=== PATIENT | female | born 1945 | race Caucasian/White ===

== ENCOUNTER 2016-04-21 14:19 | Emergency (ER) | payer OTHER, MEDICARE ==
[~2016-04-21] VITALS: Ht 177.8 cm; Wt 54.4 kg
[~2016-04-21 14:19] MED LIST: CALC-793 PO; DCS100C PO; ENOX30DI9 SQ; ERGO400C PO; ESCT10T PO; LVT.1T PO; MULT-927 PO; NFAMINITAB PO; OMEG1CAP51 PO; PREVASTATIN; VIT500LI PO; WRF2.5T PO; WRF5T PO
[2016-04-21 14:38] LABS: BASOPHILS % (AUTO) 1 % (0-10); EOSINOPHILS # (AUTO) 0.1 10^3/uL (0.0-0.3); EOSINOPHILS % (AUTO) 1 % (0-10); LYMPHOCYTES # (AUTO) 1.4 X 10^3 (1.0-4.0); LYMPHOCYTES % (AUTO) 28 % (12-44); MEAN CORPUSCULAR HEMOGLOBIN 33 PG (25-34); MEAN CORPUSCULAR HGB CONC 33 G/DL (32-36); MEAN CORPUSCULAR VOLUME 100 FL (80-99); MONOCYTES # (AUTO) 0.6 X 10^3 (0.0-1.0); MONOCYTES % (AUTO) 12 % (0-12); NEUTROPHILS # (AUTO) 2.9 X 10^3 (1.8-7.8); NEUTROPHILS % (AUTO) 58 % (42-75); PLATELET COUNT 131 10^3/uL (130-400); RED BLOOD COUNT 4.06 10^6/uL (4.35-5.85); RED CELL DISTRIBUTION WIDTH 13.2 % (10.0-14.5); WHITE BLOOD COUNT 5.1 10^3/uL (4.3-11.0)
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
[2016-04-21 14:50] LABS: INR 3.6 (0.8-1.4)
[2016-04-21 14:58] LABS: ALANINE AMINOTRANSFERASE 19 U/L (0-55); ALBUMIN 4.1 G/DL (3.2-4.5); ANION GAP 9 MMOL/L (5-14); ASPARTATE AMINO TRANSFERASE 31 U/L (5-34); BILIRUBIN,TOTAL 0.8 MG/DL (0.1-1.0); BLOOD UREA NITROGEN 13 MG/DL (7-18); BUN/CREATININE RATIO 15; CALCIUM 9.2 MG/DL (8.5-10.1); CARBON DIOXIDE 24 MMOL/L (21-32); CHLORIDE 107 MMOL/L (98-107); CREATINE KINASE 133 U/L (29-168); CREATININE SERUM 0.87 MG/DL (0.60-1.30); GFR ESTIMATED > 60; GLUCOSE 89 MG/DL (70-105); POTASSIUM 4.2 MMOL/L (3.6-5.0); SODIUM 140 MMOL/L (135-145)
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
[2016-04-21 15:06] LABS: TROPONIN I < 0.30 NG/ML (<0.30)
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
[2016-04-21] MEDS ORDERED: IOHEXOL 350 MG/ML 100 ML (OMNIPAQUE 350) VIAL IV ONE (15:30)
[2016-04-21] MEDS ORDERED: NS 100 ML (IVPB) BAG IV ONE (15:30)
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
[2016-04-21] MEDS ORDERED: TRAM-42 PO (16:28)
[2016-04-21 16:48] VITALS: BP 110/65
== END 2016-04-21 16:44 | disposition home or self-care (01) ==
LOC: EDUNIT# 14:19 → ER 14:21
DX: S20.211A Contusion of right front wall of thorax, initial encounter (principal); S20.212A Contusion of left front wall of thorax, initial encounter; S40.012A Contusion of left shoulder, initial encounter; S99.911A Unspecified injury of right ankle, initial encounter; S22.080D Wedge compression fracture of T11-T12 vertebra, subsequent encounter for fracture with routine healing; M50.322 Other cervical disc degeneration at C5-C6 level; I51.7 Cardiomegaly; I25.10 Atherosclerotic heart disease of native coronary artery without angina pectoris; I10 Essential (primary) hypertension; Z79.01 Long term (current) use of anticoagulants; Z79.899 Other long term (current) drug therapy; Z95.1 Presence of aortocoronary bypass graft; Z95.2 Presence of prosthetic heart valve; Z90.11 Acquired absence of right breast and nipple; V43.52XA Car driver injured in collision with other type car in traffic accident, initial encounter; Y92.414 Local residential or business street as the place of occurrence of the external cause; Y99.8 Other external cause status
CPT/HCPCS: 36415; 70450; 71010; 71260; 72125; 72170; 73000; 73610; 74177; 80053; 82550; 82553; 84443; 84484; 85025; 85610; 85730; 93005; 93041

== ENCOUNTER → 2016-11-25 | Outpatient (CLI) | payer MEDICARE ==
[~2016-11-25] MED LIST changes: +TRAM-42 PO
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
== END ==
LOC: RAD 13:51
PROVIDERS: ATTEND Family Medicine
DX: R19.09 Other intra-abdominal and pelvic swelling, mass and lump (principal); R10.13 Epigastric pain; R14.0 Abdominal distension (gaseous)
CPT/HCPCS: 74176

== ENCOUNTER 2017-11-04 14:15 | Emergency (ER) | payer MEDICARE ==
[~2017-11-04] VITALS: Ht 170.2 cm; Wt 54.4 kg
--- NOTE | 2017-11-04 14:51 | ED Lower Extremity ---
General Chief Complaint: Trauma-Non Activation Stated Complaint: FALL Nursing Triage Note: pt presents to ed with complaints of r hip/thigh pain after falling off chair when cleaning a ceiling fan. pt denies loc or hitting head. Nursing Sepsis Screen: No Definite Risk Source: patient, EMS Exam Limitations: no limitations History of Present Illness Date Seen by Provider: Nov 04, 2017 Time Seen by Provider: 14:49 Initial Comments This 72-year-old female presents after she fell off a chair while cleaning a ceiling fan. She sustained injury to her right hip. There was no associated head injury, loss of consciousness trauma to the chest or abdomen. The patient is unable to weight-bear due to pain. Patient denies loss of sensation or movement of the right lower extremity although she complains of pain in the right hip when she attempts to move. Location Injury Occurred: home residence Allergies and Home Medications Allergies Coded Allergies: Sulfa (Sulfonamide Antibiotics) (Verified Allergy, Unknown, 01/08/08) meperidine (Verified Allergy, Unknown, 01/08/08) Home Medications Cholecalciferol 400 Unit Capsule, 400 UNIT PO DAILY, (Reported) Docusate Sodium 100 Mg Capsule, 100 MG PO DAILY, (Reported) Enoxaparin 30 Mg/0.3 Ml Disp.syrin, 1 EACH SQ Q12HR, (Reported) Escitalopram Oxalate 10 Mg Tablet, 1 EACH PO DAILY, (Reported) Levothyroxine Sodium 100 Mcg Tablet, 1 EACH PO DAILY, (Reported) Tramadol HCl 50 Mg Tablet, 50 MG PO Q4H Prescribed by: MARIELA NAVARRETE on 04/21/16 1628 Warfarin Sod 5 Mg Tab, 5 MG PO DAILY, (Reported) Warfarin Sod 2.5 Mg Tab, 2.5 MG PO ONCE, (Reported) [Prevastatin] , 40 MG DAILY, (Reported) Patient Home Medication List Home Medication List Reviewed: Yes Review of Systems Constitutional: No chills, No fever, No malaise EENTM: No ear pain, No blurred vision Respiratory: No cough Cardiovascular: No chest pain Gastrointestinal: No abdominal pain, No nausea, No vomiting Genitourinary: No dysuria : No Musculoskeletal: No back pain; joint pain (right hip pain) Skin: No lesions, No rash Psychiatric/Neurological: No Symptoms Reported Past Ujaflll-Zzhqqp-Csewqt Hx Past Med/Social Hx: Reviewed Nursing Past Med/Soc Hx Patient Social History Alcohol Use: Occasionally Uses Number of Drinks Today: Alcohol Beverage of Choice: Wine Recreational Drug Use: No Smoking Status: Current Everyday Smoker Type Used: Cigarettes Former Smoker, Quit: Apr 15, 1995 Recent Foreign Travel: No Contact w/Someone Who Travel: No Recent Infectious Disease Expo: No Recent Hopitalizations: No Physical Abuse: No Sexual Abuse: No Mistreated: No Fear: No Immunizations Up To Date Date of Influenza Vaccine: Nov 14, 2010 Past Medical History Surgeries: Yes (RIGHT MASTECTOMY; CABG; MITRAL VALVE REPLACEMENT; COLONOSCOPIES ) Breast, Cardiac, CABG, Hysterectomy, Valve Replacement Respiratory: No Cardiac: Yes (MITRAL VALVE REPLACEMENT) Atrial Fibrillation, Hypertension, Valvular Heart Disease Neurological: No Reproductive Disorders: No 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 oz. 54.582954ja; BMI Method:Stated General Appearance: WD/WN, mild distress HEENT: normal ENT inspection Neck: normal inspection Cardiovascular: regular rate, rhythm Respiratory: lungs clear Gastrointestinal: normal bowel sounds, soft Hips: right hip limited range of motion, right hip pain Neurologic/Tendon: normal sensation, normal motor functions Neurologic/Psychiatric: no motor/sensory deficits, alert, oriented x 3 Skin: normal color, warm/dry Progress/Results/Core Measures Results/Orders Lab Results Laboratory Tests Test 11/04/17 14:28 11/04/17 16:01 Range/Units White Blood Count 7.0 4.3-11.0 10^3/uL Red Blood Count 3.88 L 4.35-5.85 10^6/uL Hemoglobin 13.1 11.5-16.0 G/DL Hematocrit 40 35-52 % Mean Corpuscular Volume 102 H 80-99 FL Mean Corpuscular Hemoglobin 34 25-34 PG Mean Corpuscular Hemoglobin Concent 33 32-36 G/DL Red Cell Distribution Width 13.2 10.0-14.5 % Platelet Count 117 L 130-400 10^3/uL Mean Platelet Volume 10.4 7.4-10.4 FL Neutrophils (%) (Auto) 73 42-75 % Lymphocytes (%) (Auto) 18 12-44 % Monocytes (%) (Auto) 8 0-12 % Eosinophils (%) (Auto) 1 0-10 % Basophils (%) (Auto) 0 0-10 % Neutrophils # (Auto) 5.1 1.8-7.8 X 10^3 Lymphocytes # (Auto) 1.2 1.0-4.0 X 10^3 Monocytes # (Auto) 0.5 0.0-1.0 X 10^3 Eosinophils # (Auto) 0.1 0.0-0.3 10^3/uL Basophils # (Auto) 0.0 0.0-0.1 10^3/uL Sodium Level 140 135-145 MMOL/L Potassium Level 4.1 3.6-5.0 MMOL/L Chloride Level 106 98-107 MMOL/L Carbon Dioxide Level 25 21-32 MMOL/L Anion Gap 9 5-14 MMOL/L Blood Urea Nitrogen 22 H 7-18 MG/DL Creatinine 1.13 0.60-1.30 MG/DL Estimat Glomerular Filtration Rate 47 BUN/Creatinine Ratio 19 Glucose Level 106 H 70-105 MG/DL Calcium Level 9.5 8.5-10.1 MG/DL Corrected Calcium 9.3 8.5-10.1 MG/DL Total Bilirubin 0.6 0.1-1.0 MG/DL Aspartate Amino Transf (AST/SGOT) 34 5-34 U/L Alanine Aminotransferase (ALT/SGPT) 19 0-55 U/L Alkaline Phosphatase 87 40-136 U/L Total Protein 7.0 6.4-8.2 GM/DL Albumin 4.2 3.2-4.5 GM/DL Urine Color YELLOW Urine Clarity CLEAR Urine pH 5 5-9 Urine Specific [place] 1.010 L 1.016-1.022 Urine Protein NEGATIVE NEGATIVE Urine Glucose (UA) NEGATIVE NEGATIVE Urine Ketones NEGATIVE NEGATIVE Urine Nitrite NEGATIVE NEGATIVE Urine Bilirubin NEGATIVE NEGATIVE Urine Urobilinogen NORMAL NORMAL MG/DL Urine Leukocyte Esterase NEGATIVE NEGATIVE Urine RBC (Auto) NEGATIVE NEGATIVE Urine RBC NONE /HPF Urine WBC NONE /HPF Urine Squamous Epithelial Cells RARE /HPF Urine Crystals NONE /LPF Urine Bacteria NONE /HPF Urine Casts NONE /LPF Urine Mucus NEGATIVE /LPF Urine Culture Indicated NO My Orders Orders - RENETTA JEWELL MD Hip, Right, 2 Views (11/04/17 14:46) Chest 1 View, Ap/Pa Only (11/04/17 14:46) Cbc With Automated Diff (11/04/17 14:46) Comprehensive Metabolic Panel (11/04/17 14:46) Ua Culture If Indicated (11/04/17 14:46) Type And Screen (11/04/17 14:46) Fentanyl Injection (Sublimaze Injection (11/04/17 15:15) Ns Iv 1000 Ml (Sodium Chloride 0.9%) (11/04/17 15:15) Ondansetron Injection (Zofran Injectio (11/04/17 15:03) Medications Given in ED Current Medications Medications Dose Ordered Sig/Emily Route Start Time Stop Time Status Last Admin Dose Admin Fentanyl Citrate 50 mcg ONCE ONCE IVP 11/04/17 15:15 11/04/17 15:16 DC 11/04/17 15:10 50 MCG Ondansetron HCl 4 mg STK-MED ONCE .ROUTE 11/04/17 15:03 11/04/17 15:07 DC 11/04/17 15:10 4 MG Vital Signs/I&O 11/04/17 14:37 Temp 97.4 Pulse 74 Resp 18 B/P (MAP) 116/74 (88) Pulse Ox 97 Blood Pressure Mean: 88 Progress Progress Note : Time: 16:27 Progress Note The patient's right hip x-ray demonstrated fracture of the right hip (sub- capital fracture). The patient's pain was effectively treated with 50 g doses of fentanyl IV. We have no orthopedic coverage this weekend at via [facility], [place]. The patient requested that she be transferred to [facility] where she can be cared for by her crop puller, Dr. Grimaldo. Calls were made to [facility]. The patient has been accepted by Dr. Looney, orthopedic surgeon, and arrangements for ground transport have been initiated. Departure Impression Primary Impression: Hip fracture, right Qualified Codes: S72.001A - Fracture of unspecified part of neck of right femur, initial encounter for closed fracture Disposition: 02 XFER SHT-TRM HOSP Condition: Improved Transfer Time Spoke to Accepting Phy: 16:[address] Looney excepted the patient through the bed nurse, Liane, at [facility]. Transfer Time: 16:34 Transfer Facility: [facility] Method of Transfer: EMS Departure-Patient Inst. Referrals: PRIYA ALVES DO (PCP/Family) Primary Care Physician RENETTA JEWELL MD Nov 04, 2017 14:51
[2017-11-04 15:00] LABS: BASOPHILS % (AUTO) 0 % (0-10); EOSINOPHILS # (AUTO) 0.1 10^3/uL (0.0-0.3); EOSINOPHILS % (AUTO) 1 % (0-10); HEMATOCRIT 40 % (35-52); HEMOGLOBIN 13.1 G/DL (11.5-16.0); LYMPHOCYTES # (AUTO) 1.2 X 10^3 (1.0-4.0); LYMPHOCYTES % (AUTO) 18 % (12-44); MEAN CORPUSCULAR HEMOGLOBIN 34 PG (25-34); MEAN CORPUSCULAR HGB CONC 33 G/DL (32-36); MEAN CORPUSCULAR VOLUME 102 FL (80-99); MEAN PLATELET VOLUME 10.4 FL (7.4-10.4); MONOCYTES # (AUTO) 0.5 X 10^3 (0.0-1.0); MONOCYTES % (AUTO) 8 % (0-12); NEUTROPHILS # (AUTO) 5.1 X 10^3 (1.8-7.8); NEUTROPHILS % (AUTO) 73 % (42-75); PLATELET COUNT 117 10^3/uL (130-400); RED BLOOD COUNT 3.88 10^6/uL (4.35-5.85); RED CELL DISTRIBUTION WIDTH 13.2 % (10.0-14.5)
[2017-11-04] MEDS ORDERED: ONDANSETRON 4 MG/2 ML (SDV) Z0FRAN ONE (15:03)
[2017-11-04 15:11] LABS: ALBUMIN 4.2 GM/DL (3.2-4.5); BILIRUBIN,TOTAL 0.6 MG/DL (0.1-1.0); CALCIUM 9.5 MG/DL (8.5-10.1); CREATININE SERUM 1.13 MG/DL (0.60-1.30); POTASSIUM 4.1 MMOL/L (3.6-5.0)
[2017-11-04] MEDS ORDERED: fentaNYL INJECTION 100 MCG/2 ML AMP IVP ONE (15:15)
[2017-11-04] MEDS ORDERED: NS IV 1000 ML 1,000 ML IV SCH (15:15)
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
[2017-11-04 16:13] LABS: BILIRUBIN,URINE NEGATIVE (NEGATIVE); CLARITY,URINE CLEAR; COLOR,URINE YELLOW; GLUCOSE, URINE (UA) NEGATIVE (NEGATIVE); KETONES,URINE NEGATIVE (NEGATIVE); LEUKOCYTE ESTERASE ,URINE NEGATIVE (NEGATIVE); NITRITE,URINE NEGATIVE (NEGATIVE); PH,URINE 5 (5-9); PROTEIN,URINE NEGATIVE (NEGATIVE); UROBILINOGEN,URINE NORMAL (NORMAL)
[2017-11-04 16:21] LABS: SQUAMOUS EPITHELIAL CELL,UR RARE /HPF
[2017-11-04] MEDS ORDERED: fentaNYL INJECTION 100 MCG/2 ML AMP ONE (18:10)
[2017-11-04 18:24] VITALS: BP 122/68
== END 2017-11-04 18:24 | disposition short-term general hospital (02) ==
LOC: EDUNIT# 14:15 → ER 14:16
DX: S72.001A Fracture of unspecified part of neck of right femur, initial encounter for closed fracture (principal); R07.81 Pleurodynia; I48.91 Unspecified atrial fibrillation; I10 Essential (primary) hypertension; F41.9 Anxiety disorder, unspecified; E03.9 Hypothyroidism, unspecified; Z87.19 Personal history of other diseases of the digestive system; Z87.891 Personal history of nicotine dependence; Z85.3 Personal history of malignant neoplasm of breast; Z90.11 Acquired absence of right breast and nipple; Z95.1 Presence of aortocoronary bypass graft; Z95.2 Presence of prosthetic heart valve; Z90.710 Acquired absence of both cervix and uterus; Z88.2 Allergy status to sulfonamides; Z88.8 Allergy status to other drugs, medicaments and biological substances; Z79.01 Long term (current) use of anticoagulants; W07.XXXA Fall from chair, initial encounter
CPT/HCPCS: 36415; 51702; 71045; 73502; 80053; 81000; 85025; 86850; 86900; 86901; 96361; 96374; 96375; 96376

== ENCOUNTER 2017-11-10 15:18 | Inpatient (IN) | payer MEDICARE ==
[~2017-11-10] VITALS: Ht 170.2 cm; Wt 58.6 kg
[2017-11-10 19:10] VITALS: BP 147/61
[2017-11-10] MEDS: DOCUSATE SODIUM 100 MG (COLACE) CAP PO SCH (21:27)
[2017-11-10] MEDS: ATORVASTATIN 20 MG (LIPITOR) TABLET PO SCH (21:27)
[2017-11-10] MEDS: ACETAMINOPHEN 325 MG TABLET PO PRN (21:27)
[2017-11-10] MEDS: FAMOTIDINE 20 MG (PEPCID) TABLET PO SCH (21:27)
--- NOTE | 2017-11-10 22:47 | HISTORY AND PHYSICAL ---
DATE OF SERVICE: 11/10/2017 CHIEF COMPLAINT: Difficulty with walking. HISTORY OF PRESENT ILLNESS: The patient is a 72-year-old female, who fell at home and sustained a right hip fracture.Radiographs revealed a displaced femoral neck fracture. 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 Her Coumadin was held and then resumed postoperatively. Currently, she requires assistance for ADLs and mobility skills. She was referred to inpatient rehabilitation unit at [facility] for ongoing care and therapies. Her PCP is Dr. Cotton and she lives in [place], [place]. She had been independent prior to this.Currently she requires Min assist for transfers and gait with a WW.Please see OT assessment for details of ADL function postop. PAST MEDICAL HISTORY: Atrial fibrillation, on chronic anticoagulation with Coumadin s/p MVR, anxiety, hypothyroidism, hyperlipidemia. PAST SURGICAL HISTORY: As per above. ALLERGIES: SULFA, MEPERIDINE. FAMILY HISTORY: Noncontributory. SOCIAL HISTORY: As per above. REVIEW OF SYSTEMS: A 10-point review of systems significant for constipation. She is requesting stool softener and hip pain. MEDICATIONS: Lortab generic 5/325 one tablet p.o. q.4 hours p.r.n. severe pain, tramadol 50 mg p.o. q.6 hours as needed for moderate pain, Tylenol 650 mg p.o. q.4 hours p.r.n. mild pain, Coumadin 2.5 mg p.o. daily, vitamin C 500 mg p.o. daily, vitamin D3 2000 units p.o. daily, Colace 100 mg p.o. b.i.d., Lexapro 20 mg p.o. daily, Pepcid 40 mg p.o. at bedtime, Synthroid 75 mcg p.o. daily, Mag ox 400 mg p.o. daily, metoprolol 100 mg p.o. daily, KCl 20 mEq p.o. b.i.d., pravastatin 80 mg p.o. daily. PHYSICAL EXAMINATION: GENERAL: Significant for a pleasant female appearing her stated age, lying in bed, no acute distress. VITAL SIGNS: Within normal limits. She is afebrile. HEENT: Vision, speech, hearing grossly intact. No oral lesion is noted. NECK: Supple without mass. HEART: Regular rhythm. CHEST: Clear. ABDOMEN: Soft, nontender, bowel sounds present. EXTREMITIES: Trace edema right ankle, no calf tenderness. MUSCULOSKELETAL: The patient has functional active range of motion in all 4 limbs other than the right hip. NEUROLOGIC: Cognitively grossly intact. Sensation grossly intact to touch. Strength good to normal throughout other than the right hip to some guarding and pain.MMT Lower limbs Knee flex 4/5 bilateral Left Hip flex 4/5 Knee ext 5/5 Dorsiflec lle 4+/5 Plantar flex bilat 5/5 Dorsiflex RT 4/5 with pain IMPRESSION: 1. Ambulatory dysfunction secondary to fall, fracture of right hip status post right hip surgery [facility]. Weightbearing as tolerated. 2. Chronic anticoagulation with Coumadin resumed postop. 3. Atrial fibrillation, controlled with medication. 4. Hypothyroidism, on replacement. PLAN: The patient will have a comprehensive program of inpatient rehabilitation with goal of maximizing level of functional independence prior to discharge home with her spouse, who presents to unit with her. The patient will have PT and OT 90 minutes per day each discipline, 5 days a week for 14 days with the above goals in mind. Please see post-admission physician evaluation, which is separate document for details of plan of care. Speech therapy to do cognitive assessment and treat as indicated. Rehabilitation nursing to assist with bowel, bladder, skin, wound care, medication administration, pain management. director of tax services to assist with discharge planning, and community reentry. Follow up with Dr. Cotton, PCP as per her schedule. Routine admission labs. Check INR in a.m. and adjust Coumadin as necessary. Coumadin and SCDs for DVT prophylaxis.F/u with OSH Ortho 4 weeks. ESTIMATED LENGTH OF STAY: 14 days. DIET: Regular. CODE STATUS: Full code Rehab prognosis appears good for goal of discharging home with spouse, modified independent to supervision for ADLs and mobility skills. Job ID: [id number] DocumentID: [id number] Dictated Date: 11/10/2017 20:15:05 Chief Innovation Officer Date: 11/10/2017 20:51:35 Dictated By: KISHAN LANTIGUA MD [facility]
[2017-11-11 05:10] VITALS: BP 103/68
[2017-11-11] MEDS: ASCORBIC ACID (VIT C) 500 MG TABLET PO SCH (06:06)
[2017-11-11] MEDS: KCL 20 MEQ TAB (K-DUR) PO SCH ×2 (06:06→16:51)
[2017-11-11] MEDS: LEVOTHYROXINE 75 MCG (LEVOTHROID) TABLET PO SCH (06:06)
[2017-11-11 06:25] LABS: BASOPHILS # (AUTO) 0.1 10^3/uL (0.0-0.1); BASOPHILS % (AUTO) 1 % (0-10); EOSINOPHILS # (AUTO) 0.2 10^3/uL (0.0-0.3); EOSINOPHILS % (AUTO) 2 % (0-10); HEMATOCRIT 26 % (35-52); HEMOGLOBIN 8.7 G/DL (11.5-16.0); LYMPHOCYTES # (AUTO) 1.1 X 10^3 (1.0-4.0); LYMPHOCYTES % (AUTO) 15 % (12-44); MEAN CORPUSCULAR HEMOGLOBIN 35 PG (25-34); MEAN CORPUSCULAR HGB CONC 34 G/DL (32-36); MEAN CORPUSCULAR VOLUME 102 FL (80-99); MEAN PLATELET VOLUME 9.9 FL (7.4-10.4); MONOCYTES # (AUTO) 0.8 X 10^3 (0.0-1.0); MONOCYTES % (AUTO) 11 % (0-12); NEUTROPHILS # (AUTO) 5.3 X 10^3 (1.8-7.8); NEUTROPHILS % (AUTO) 71 % (42-75); PLATELET COUNT 241 10^3/uL (130-400); RED CELL DISTRIBUTION WIDTH 13.1 % (10.0-14.5); WHITE BLOOD COUNT 7.4 10^3/uL (4.3-11.0)
[2017-11-11 06:41] LABS: PROTHROMBIN TIME PATIENT 39.1 SEC (12.2-14.7)
[2017-11-11] MEDS ORDERED: FLU QUADRIvalent (5+ YOA) 2018-2019 (AFLURIA) 0.5 ML IM ONE (07:00)
[2017-11-11] MEDS ORDERED: KCL 20 MEQ TAB (K-DUR) PO SCH (07:00)
[2017-11-11 07:03] LABS: ALANINE AMINOTRANSFERASE 31 U/L (0-55); ALKALINE PHOSPHATASE 76 U/L (40-136); BILIRUBIN,TOTAL 0.9 MG/DL (0.1-1.0); BUN/CREATININE RATIO 23; CALCIUM 8.5 MG/DL (8.5-10.1); CARBON DIOXIDE 23 MMOL/L (21-32); CHLORIDE 108 MMOL/L (98-107); GFR ESTIMATED > 60; GLUCOSE 95 MG/DL (70-105); POTASSIUM 3.8 MMOL/L (3.6-5.0); SODIUM 139 MMOL/L (135-145); TOTAL PROTEIN 5.6 GM/DL (6.4-8.2)
[2017-11-11] MEDS: MAGNESIUM OXIDE (MAG-OX)400 MG TAB PO SCH (08:33)
[2017-11-11] MEDS: meTOprolol SUCCINATE 100 MG (TOPROL XL) TAB PO SCH (08:33)
[2017-11-11] MEDS: ACETAMINOPHEN 325 MG TABLET PO PRN (08:34)
[2017-11-11] MEDS: VITAMIN D3 1,000 UNITS (CHOLECALCIFEROL) TABLET PO SCH (08:34)
[2017-11-11] MEDS: DOCUSATE SODIUM 100 MG (COLACE) CAP PO SCH ×2 (08:35→16:52)
--- NOTE | 2017-11-11 10:10 | ST Cognitive Linguistic Eval ---
Speech Evaluation-General Medical Diagnosis Hip fx Therapy Diagnosis Therapy Diagnosis: Cognition Precautions Precautions/Isolations: Standard Precautions Referral Referring Physician: Dr. Beaulieu Reason for Referral: Evaluation/Treatment Social History Current Living Status: Spouse Speech PLF-Current Status Prior Level of Function Independent Subjective Pt up in chair. Pleasant and cooperative.. Pain Numeric Pain Scale: 0-No Pain Language Eval: Auditory Comprehends Simple Yes/No Ques: Functional Follows 1-Step Commands: Functional Follows Complex Directions: Functional Follows General Conversations: Functional Language Eval: Verbal Language Completes Spontaneous Greeting: Functional Produces Auto, Serial Info: Functional Word Finding: Functional Requests Basic Needs: Functional States Basic Personal Info: Functional Expresses Complex Ideas: Functional Language Evaluation: Reading NT Cognitive Patient Orientation Pt oriented x 3. Objective Cognitive Domain Attention: WNL Memory: WNL Problem Solving: Functional Objective Results [facility] Cognitive/Communication Assessment was administered to determine cognitive-linguistic functioning. Results are: Memory - 3 word recall was 3/3 correct for immediate; 3/3 correct for delayed and 3/3 correct for remote delay. Sequencing/organization - 4/4 correct Problem Solving - Simple 4/4 correct; Math 4/4 correct; Abstract/complex 2/2 correct and Comparisons 5/5 correct. Speech/language WNL Oral Motor/Speech Production WNL Impression Functional cognitive-linguistic skills. No skilled ST indicated. Communication/Social Cognition Comprehension: 7 Expression: 7 Social Interaction: 7 Problem Solvin Memory: 7 Speech Patient Assess Expression of Ideas/Wants: Expression (4) Understanding Verbal Content: Understands (4) Brief Interview-Mental Status: Yes Repetition of Three Words: Three (3) Temporal Orientation: Year: Correct (3) Temporal Orientation: Month: Accurate within 5 days(2) Temporal Orientation: Day: Correct (1) Recall : Wear to say "Sock": Yes, no cue required (2) Recall : Color: Yes, no cue required (2) Recall : Bed: Yes, no cue required (2) Speech Short Term Goals Short Term Goals Short Term Goals no goals established as skilled ST not indicated. Speech Record Clerk Salesperson Goals Record Clerk Salesperson Goals no goals established as skilled ST not indicated. Speech-Plan Patient/Family Goals Patient/Family Goals: to return home. Treatment Plan Speech Therapy Treatment Plan: Discontinue ST no tx indicated. Frequency: Modified Program (IRF) (0) Estimated Hrs Per Day: Other (0) Rehab Potential: Good Barriers to Learning: None Pt/Family Agrees to Plan: Yes Safety Risks/Education Teaching Recipient: Patient Teaching Methods: Discussion Response to Teaching: Verbalize Understanding Time Speech Therapy Time In: 09:30 Speech Therapy Time Out: 09:55 Total Billed Time: 25 Billed Treatment Time 1, SPSNDCOMP OLGA Orantes Nov 11, 2017 10:10
[2017-11-11] MEDS ORDERED: ESCI10TA55 PO (10:48)
[2017-11-11] MEDS ORDERED: CHOL20003 PO (10:48)
[2017-11-11] MEDS ORDERED: POTA20TA15 PO (10:48)
[2017-11-11] MEDS ORDERED: METO-395 PO (10:48)
[2017-11-11] MEDS ORDERED: WARF-48 PO (10:48)
[2017-11-11] MEDS ORDERED: MAGN400T39 PO (10:48)
[2017-11-11] MEDS ORDERED: FAMO40TA6 PO (10:48)
[2017-11-11] MEDS ORDERED: ASCO500T6 PO (10:48)
[2017-11-11] MEDS ORDERED: WARF-48 (10:48)
[2017-11-11] MEDS ORDERED: DOCU100C37 PO (10:48)
[2017-11-11] MEDS ORDERED: CALC600T80 PO (10:48)
[2017-11-11] MEDS ORDERED: PRAV80TA2 PO (10:48)
[2017-11-11] MEDS ORDERED: LEVO75TA PO (10:48)
[2017-11-11] MEDS ORDERED: FURO20TA4 PO (11:15)
--- NOTE | 2017-11-11 11:20 | Physical Therapy Evaluation ---
PT Evaluation-General Medical Diagnosis Admission Date Nov 10, 2017 at 19:04 Medical Diagnosis: Hip fx Onset Date: Nov 04, 2017 Therapy Diagnosis Therapy Diagnosis: impaired mobility, strength, endurance, ROM Height/Weight Height (Feet): 5 Height (Inches): 7.00 Weight (Pounds): 128 Weight (Ounces): 0.8 Precautions Precautions/Isolations: Fall Prevention, Standard Precautions Weight Bear Status Right Lower Extremity: Right Weight Bearing/Tolerated Left Lower Extremity: Left Full Weight Bearing Referral Physician: Christofer Reason for Referral: Evaluation/Treatment Medical History Pertinent Medical History: Hypothroidism Additional Medical History anxiety, a-fib, hyperlipidemia, mitral valve replacement Reviewed History: Yes Social History Home: Single Level Current Living Status: Spouse Entry Into Home: Stairs With Railing PT Steps Into Home: 2 Prior/Core FIM Prior Level of Function Functional [place] Measure 0=Not Assessed/NA 4=Minimal Assistance 1=Total Assistance 5=Supervision or Setup 2=Maximal Assistance 6=Modified [place] 3=Moderate Assistance 7=Complete [place] Bed Mobility: 7 Transfers (B,C,W/C) (FIM): 7 Gait: 7 PT Evaluation-Current Subjective pt in recliner pre tx, agrees to PT, no pain to report Pt/Family Goals to be independent at home Objective Patient Orientation: Normal For Age ROM/Strength ROM Lower Extremities WFL Strenght Lower Extremities RLE (knee ext. 5/5, knee flex. 4/5, dorsiflexion 4/5 w/ pain, plantarflexion 5/5 ) LLE (hip flexion 4/5, knee ext. 5/5, knee flexion 4/5 w/ pain, dorsiflexion 4+/5 , plantarflexion 5/5) Neuromuscular (Tone, Coordination, Reflexes) NT Sensory Vision: Wears Glasses Hearing: Functional Sensation Right Lower Extremit: Intact Sensation Left Lower Extremity: Intact Transfers Functional [place] Measure 0=Not Assessed/NA 4=Minimal Assistance 1=Total Assistance 5=Supervision or Setup 2=Maximal Assistance 6=Modified [place] 3=Moderate Assistance 7=Complete IndependenceIRFPAI Quality Coding Scale 6 Independent with activity with or without an assistive device 5 Patient requires set up or clean up by helper. Patient completes activity by themselves 4 Supervision or touching assist (CGA). [place] provide cues , steadying assist 3 The helper provides less than half the effort to complete the activity 2 The helper provides more than half the effort to complete the activity 1 Dependent. The helper does all the effort to complete an activity 7 Patient refused to complete or attempt activity 9 The patient did not perform the activity before the current illness or injury 88 Not attempted due to Medical conditions or safety concerns Transfers (B, C, W/C) (FIM): 4 Scootin Rollin Roll Left to Right (QC): 4 Supine to/from Sit: 4 Sit to/from Stand: 4 Sit to Lying (QC): 3 Lying to Sitting/Side of Bed(Q: 3 Sit to Stand (QC): 4 Chair/Cdk-my-Oirpq Xfer(QC): 4 Car Transfer (QC): 4 sit<->stand CGA, sit->supine Theo w/ getting RLE into bed, supine->sit Theo assistance sitting up, car transfer SBA, Gait Does the Patient Walk?: Yes Mode of Locomotion: Walk Anticipated Mode of Locomotion: Walk Gait (FIM): 4 Distance (FIM): 3=150 ft Walk 10 feet (QC): 4 Walk 50 ft with 2 Turns(QC): 4 Walk 150 ft (QC): 4 Walking 10ft/uneven surface-QC: 4 Distance: 80'x2,150' Gait Level of Assist: 4 Gait Persons Needed: 1 Gait Assistive Device: FWW Comments/Gait Description Pt ambulates to/from gym w/ CGA using FWW, gait is very slow w/ step to pattern , only a few inches in length, antalgic gait w/ decreased WB and knee flexion w / RLE, pt states she has fear of falling, but shows no unsteadiness or LOB Wheelchair Training Does the Pt Use a Wheelchair?: No Stairs Stairs (FIM): 2 #of Steps: 1 Level of Assist: 4 1 Step (curb) (QC): 4 4 Steps (QC): 88 Assistive Device: Walker 12 Steps (QC): 88 pt able to ascend/descend 1 step w/ CGA using FWW Balance Sitting Static: Normal Sitting Dynamic: Normal Standing Static: Normal Standing Dynamic: Fair Picking up an Object (QC): 88 Treatment supine exercises: quad sets, HS, AP, abd/add, glute squeeze, x10 Assessment/Needs impaired mobility, balance, and endurance s/p R MAYKEL Rehab Potential: Fair PT Short Term Goals Short Term Goals Time Frame: Nov 18, 2017 Transfers (B,C,W/C) (FIM): 4 Gait (FIM): 5 Gait Distance Comment: 200' Gait Level of Assist: 5 Gait Assistive Device: FWW PT Spooling Machine Operator Goals Care Home Goals PT Care Home Goals Time Frame: Dec 02, 2017 Transfers (B,C,W/C) (FIM): 7 Sit to Lying (QC): 6 Lying-Sitting on Side/Bed(QC): 6 Sit to Stand (QC): 6 Rollin Roll Left to Right (QC): 6 Chair/Att-yf-Ktskb Xfer(QC): 6 Car Transfer (QC): 6 Does the Patient Walk: Yes Gait (FIM): 6 Distance: 300' Walk 10 feet (QC): 6 Walk 10ft-Uneven Surface(QC): 6 Walk 50ft with 2 Turns (QC): 6 Walk 150 ft (QC): 6 Gait Level of Assist: 6 Gait Assistive Device: FWW Stairs (FIM): 5 # of Steps: 12 1 Step (curb) (QC): 4 4 Steps (QC): 4 12 Steps (QC): 4 Stairs Level Of Assist: 5 PT Plan Problem List Problem List: Activity Tolerance, Functional Strength, Safety, Balance, Gait, Transfer, Bed Mobility, ROM Treatment/Plan Treatment Plan: Continue Plan of Care Treatment Plan: Bed Mobility, Education, Functional Activity Juan J, Functional Strength, Group Therapy, Gait, Safety, Therapeutic Exercise, Transfers Treatment Duration: Dec 02, 2017 Frequency: At least 5 of 7 days/Wk (IRF) Estimated Hrs Per Day: 1.5 hours per day Patient and/or Family Agrees t: Yes Safety Risks/Education Patient Education: Gait Training, Transfer Techniques, Steps, Reviewed Precautions, Correct Positioning, Safety Issues Teaching Recipient: Patient Teaching Methods: Demonstration, Discussion Response to Teaching: Reinforcement Needed Discharge Recommendations Plan Pt will perform bed mobility and transfer training, balance training, gait training, stair training, endurance training, functional strengthening, and education to be independent at home. Therapy D/C Recommendations: Home w/ Family Support Time/GCodes Time In: 1000 Time Out: 1100 Total Billed Treatment Time: 60 Total Billed Treatment 1 visit EVL 30' EX 10' GT 20' SILVIO GONSALEZ PT Nov 11, 2017 11:20
--- NOTE | 2017-11-11 11:23 | PM&R Post Admission Assessment ---
Post Admission Physician Asses Date seen by provider: Nov 11, 2017 Time seen by provider: 08:00 The preadmission screen agrees with the post admission assessment that the patient is a good candidate for inpatient rehabilitation. The patient will have a comprehensive program of inpatient rehabilitation with a goal of maximizing level of functional independence prior to discharge home with spouse. The patient will have PT/OT ninety minutes per day, each discipline, five days a week for 10-14 days for gait, strengthening, conditioning, balance, ADLs, any patient/family/caregiver training as necessary. Speech therapy to do cognitive assessment and treat as indicated. Rehabilitation nursing to assist with bowel, bladder, skin, wound care, medication administration, pain management. Linoleum Installer to assist with discharge planning, community reentry. SCD's and Coumadin for DVT prophylaxis. She appears to be well motivated to participate in three hours of therapy a day. She should be able to tolerate three hours of therapy a day from a medical and surgical standpoint. She should benefit from the three hours of therapy a day. She has a reasonable discharge plan, reasonable discharge rehabilitation goals and a supportive family. She has various comorbidities that need to be closely monitored with medications and treatments adjusted on a daily basis as needed. These include: Mechanical HT Valve chronically anticoagulated with INR 4 today will hold coumadin Chronic A FIBPostop anemia Hypoalbuminemia Barriers to discharge for this patient who had been independent prior to this are for her to be modified independent to supervision for ADLs and mobility skills prior to discharge home with spouse, so as to lessen the burden of the caregivers. Risks for this patient include: 1. Fall 2. Fracture 3. DVT 4. Pulmonary embolism 5. Wound infection 6. Skin breakdown 7. Contractures 8. Poorly controlled pain 9. Urinary retention 10. UTI 11. Respiratory infection 12. Aspiration 13.Supratherapeutic INR associated with Bleed 14. Poorly controlled A FIB Estimated Length of Stay: 10-14 days Prognosis: Rehab prognosis appears good for goal of discharge home with spouse modified independent to supervision for ADLs and mobility skills. [facility] code 08.11 Etiologic DX Impacted mildly displaced fracture of the right fem neck Date Identified: Nov 11, 2017 Time Identified: [id number] General: Alert, Oriented X3, Cooperative, No Acute Distress HEENT: Atraumatic, PERRLA Neck: Supple, No JVD Lungs: Clear to Auscultation Heart: Regular Rate Abdomen: Normal Bowel Sounds, Soft, No Tenderness Extremities: Other (Trace edema rt ankle) Skin: Other (Incision site healing well) Neuro: Other (Good strength other than rt hip with limitations due to tenderness and pain as well as guarding) KISHAN LANTIGUA MD Nov 11, 2017 11:23
--- NOTE | 2017-11-11 11:35 | PM & R (SOAP) Progress Note ---
Subjective This was a face to face visit with the patient. Date Seen by Provider: Nov 11, 2017 Time Seen by Provider: 08:00 Subjective/Events-last exam Patient was seen in her room this AM Reported to be min assist for transfers at [facility] Awaiting PT/OT evals here as patient late arrival last evening Discussed case with RN INR 4 will hold until 3. Date Identified: Nov 11, 2017 Time Identified: 08:00 Medication Intervention: Coumadin on hold as per above Review of Systems Musculoskeletal: leg pain Objective Physician Exam Last Set of Vital Signs Vital Signs Date Time Temp Pulse Resp B/P (MAP) Pulse Ox O2 Delivery O2 Flow Rate FiO2 11/11/17 09:00 97 Room Air 11/11/17 05:10 99.3 82 16 103/68 (80) Capillary Refill : I&O Intake and Output 11/11/17 00:00 Daily Weight Change No General: Alert, Oriented X3, Cooperative, No Acute Distress HEENT: Atraumatic, PERRLA Neck: Supple, No JVD Lungs: Clear to Auscultation Heart: Regular Rate Abdomen: Normal Bowel Sounds, Soft, No Tenderness Extremities: Other (Trace edema rt ankle) Skin: Other (Incision site healing well) Neuro: Other (Good strength other than rt hip with limitations due to tenderness and pain as well as guarding) Results Lab Data Laboratory Tests 11/11/17 05:55: White Blood Count 7.4, Red Blood Count 2.50L, Hemoglobin 8.7#L, Hematocrit 26L, Mean Corpuscular Volume 102H, Mean Corpuscular Hemoglobin 35H, Mean Corpuscular Hemoglobin Concent 34, Red Cell Distribution Width 13.1, Platelet Count 241, Mean Platelet Volume 9.9, Neutrophils (%) (Auto) 71, Lymphocytes (%) (Auto) 15, Monocytes (%) (Auto) 11, Eosinophils (%) (Auto) 2, Basophils (%) (Auto) 1, Neutrophils # (Auto) 5.3, Lymphocytes # (Auto) 1.1, Monocytes # (Auto) 0.8, Eosinophils # (Auto) 0.2, Basophils # (Auto) 0.1, Prothrombin Time 39.1H, INR Comment 4.0H, Sodium Level 139, Potassium Level 3.8, Chloride Level 108H, Carbon Dioxide Level 23, Anion Gap 8, Blood Urea Nitrogen 18, Creatinine 0.80, Estimat Glomerular Filtration Rate > 60, BUN/Creatinine Ratio 23, Glucose Level 95, Calcium Level 8.5, Corrected Calcium 9.3, Total Bilirubin 0.9, Aspartate Amino Transf (AST/SGOT) 39H, Alanine Aminotransferase (ALT/SGPT) 31, Alkaline Phosphatase 76, Total Protein 5.6L, Albumin 3.0L Assessment/Plan Assessment and Plan Impacted mildly displaced fracture of rt Fem neck s/p THR OSH WBAT due to fall at home MVR chronicall y anticoagulated Post op anemia Supratherapeutic INR Chronic A FIB DVT prophylaxis on coumadin Plan Continue PT/OT Hold Coumadin-see orders F/U with PCP F/u with orthoOSH 2 weeks Team Conference 10--18 Co-Morbidities that are continuing to impact the rehab process: (include details ) KISHAN LANTIGUA MD Nov 11, 2017 11:35
--- NOTE | 2017-11-11 14:40 | Therapy Group Daily Note ---
Therapy Daily Group Note Patient Education Topic Home Safety, Fall Prevention Exercises LE Seated Exercise, UE Exercise Other/Notes Pt was an active participant in OT/PT group. She introduced herself and shared her favorite thing about . She contributed to education/discussion on falls and fall prevention and identified ways to make her environment safer. She also did seated UE and LE exercises. She walked back to her room with SBA, FWW and was left up in recliner, all needs met. Start Time: 13:00 Stop Time: 14:15 Total Billed Treatment Time: 75 Total Billed Treatment visit, 75 minutes group KASH DUMAS OT Nov 11, 2017 14:40
--- NOTE | 2017-11-11 15:34 | Occupational Therapy Eval ---
OT Evaluation-General/PLF Medical Diagnosis Admission Date Nov 10, 2017 at 19:04 Medical Diagnosis: Hip fx, R total hip Onset Date: Nov 04, 2017 Therapy Diagnosis Therapy Diagnosis: decr self care, weakness, decr act nessa, decr vision, decr funct mob Height/Weight Height (Feet): 5 Height (Inches): 7.00 Weight (Pounds): 128 Weight (Ounces): 0.8 Precautions Precautions/Isolations: Fall Prevention, Standard Precautions Safety Interventions: Reorient-PRN Weight Bear Status Weight Bearing Restriction: Weight Bearing/Tolerated Location Restriction: R LE WBS (Ord/Comment): Posterior hip precautions Referral Physician: Christofer Referral Reason: Evaluation/Treatment Medical History Pertinent Medical History: Hypothroidism Additional Medical History Macular disease (legally blind in one eye), mastectomy R, heart failure, angina , MVR, anxiety, osteoporosis Current History Fell at home while cleaning a ceiling fan. R hip fx, with THR on 11/06/17. Posterior hip precautions. Reviewed History: Yes Social History Home: Single Level Current Living Status: Spouse Entry Into Home: Stairs With Railing Steps Into Home: 2 ADL-Prior Level of Function ADL PLOF Comments Pt said that she was able to manage all of her basic ADLs and cared for her home. She doesn't drive now because of macular disease. 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 DME/Equipment: Shower, Tall Toilet, Tub (garden) OT Current Status Subjective Pt seen in room, up in recliner, agreeable to OT. Pain reported 0/10. Appearance Alert, cooperative Mental Status/Objective Patient Orientation: Person, Place, Time, Situation Current Glasses/Contacts: Yes Hearing Aids: No Dentures/Partials: No Hand Dominance: Right Upper Extremity ROM Grossly WFL bilat Upper Extremity Strength Grossly 4/5 bilat ADL-Treatment ADL-Current Pt was able to verbalize hip precautions and was very attentive to following them (with skilled cues at times). She got up from recliner with CGA and walked slowly with CGA, FWW to bathroom. Unable to safely use tall toilet due to hip precautions and transferred CGA, FWW on/off BSC over toilet, using grab bar as well. Managed clothing and hygiene with CGA. Pt unable to get socks and pants off lower legs due to hip precautions. pt educ use of dressing stick to doff slipper socks and pants. Help to take TEDs off. Walked CGA, FWW to shower and transferred onto shower chair with CGA, dk miller, FWW. Pt was able to wash/dry all parts except lower legs due to hip precautions. CGA for standing to wash bottom. Pt educ use of long handled sponge to wash and dry lower legs. CGA getting off shower chair. Some orientation to shower environment due to low vision. She walked with CGA, FWW to room and was able to sit edge of bed with SBA, FWW. Help needed to get feet into pants legs and get socks/shoes on. CGA when standing to pull pants up. Pt transferred to recliner to eat lunch which she was able to set up herself and eat/drink without difficulty or assistance. Pt left up in recliner, all needs met. Functional [place] Measure 0=Not Assessed/NA 4=Minimal Assistance 1=Total Assistance 5=Supervision or Setup 2=Maximal Assistance 6=Modified [place] 3=Moderate Assistance 7=Complete IndependenceIRFPAI Quality Coding Scale 6 Independent with activity with or without an assistive device 5 Patient requires set up or clean up by helper. Patient completes activity by themselves 4 Supervision or touching assist (CGA). [place] provide cues , steadying assist 3 The helper provides less than half the effort to complete the activity 2 The helper provides more than half the effort to complete the activity 1 Dependent. The helper does all the effort to complete an activity 7 Patient refused to complete or attempt activity 9 The patient did not perform the activity before the current illness or injury 88 Not attempted due to Medical conditions or safety concerns Eating (FIM): 7 (No assistance. No dentures) Eating (QC): 6 Bathing (FIM): 4 (Help to wash and dry lower legs. CGA when standing to wash bottom. pt educ long handled sponge. SHower chair, grab bars, hand held shower) Bathing Location: L Arm, R Arm, L Upper Leg, R Upper Leg, Chest, Abdomen, Buttocks, Perineal Area Shower/Bathe Self (QC): 3 Upper Body Dressing (FIM): 5 (setup ) Upper Body Dressing (QC): 5 Lower Body Dressing (FIM): 2 (Help to get socks/shoes on/off. Help to get pants over feet. CGA to stand to pull pants up. ) Lower Body Dressing (QC): 3 On/Off Footwear (QC): 1 Toileting (FIM): 4 (Managed clothing and hygiene with CGA, BSC over toilet. Unable to safely get on/off tall toilet due to hip precautions and long legs) Toileting Hygiene (QC): 5 Toilet/Commode Transfer (FIM): 4 (CGA) Toilet Transfer (QC): 4 (CGA) Shower Transfer (FIM): 4 (CGA) Education OT Patient Education: Modified ADL techniques, Purpose of tx/functional activities, Rehab process, Transfer techniques, Use of adapted equipment Teaching Recipient: Patient Teaching Methods: Demonstration, Discussion Response to Teaching: Verbalize Understanding, Return Demonstration, Reinforcement Needed OT Short Term Goals Short Term Goals Time Frame: Nov 18, 2017 Lower Body Dressing(FIM): 5 Toileting(FIM): 5 Toilet/Commode Transfer(FIM): 5 Shower Transfer(FIM): 5 Additional Short Term Goals: 1-Demonstrate ADL Tasks, 2-Verbalize Understanding , 3-ImproveStrength/Juan J 1=Demonstrate adherence to instructed precautions during ADL tasks. 2=Patient will verbalize/demonstrate understanding of assistive devices/ modifications for ADL. 3=Patient will improve strength/tolerance for activity to enable patient to perform ADL's. OT Assisted Goals Assisted Goals Time Frame: Dec 02, 2017 Eating (FIM): 7 Eating (QC): 6 Groomin Oral Hygiene (QC): 6 Bathing(FIM): 6 Shower/Bathe Self (QC): 6 Upper Body Dressing(FIM): 6 Upper Body Dressing (QC): 6 Lower Body Dressing(FIM): 6 Lower Body Dressing (QC): 6 On/Off Footwear (QC): 6 Toileting(FIM): 6 Toileting Hygiene (QC): 6 Toilet/Commode Transfer(FIM): 6 Toilet/Commode Transfer (QC): 6 Shower Transfer(FIM): 6 Additional Goals: 1-Demonstrate ADL Tasks, 2-Verbalize Understanding, 3- ImproveStrength/Juan J 1=Demonstrate adherence to instructed precautions during ADL tasks. 2=Patient will verbalize/demonstrate understanding of assistive devices/ modifications for ADL. 3=Patient will improve strength/tolerance for activity to enable patient to perform ADL's. OT Education/Plan Problem List/Assessment Assessment: Decreased Activ Tolerance, Decreased UE Strength, Dependent Transfers, Impaired Self-Care Skills, Visual-Perceptual Deficit Pt would benefit from skilled OT to increase her independence in basic self care Discharge Recommendations Plan/Recommendations: Continue POC Treatment Plan/Plan of Care Treatment,Training & Education: Yes Patient would benefit from OT for education, treatment and training to promote independence in ADL's, mobility, safety and/or upper extremity function for ADL' s. Plan of Care: ADL Retraining, Functional Mobility, Group Exercise/Act as Ind ( education, exercise, act tolerance, funct mobility, socialization), UE Funct Exercise/Act, UE Neuromus Re-Ed/Coord, OTHER (low vision education as applicable ) Treatment Duration: Dec 02, 2017 Frequency: At least 5 of 7 days/Wk (IRF) Estimated Hrs Per Day: 1.5 hours per day Agreement: Yes Rehab Potential: Good Time/GCodes Start Time: 11:00 Stop Time: 12:30 Total Time Billed (hr/min): 90 Billed Treatment Time visit, 20 minutes evaluation moderate intensity, 70 minutes ADL KASH DUMAS OT Nov 11, 2017 15:34
[2017-11-11 17:37] VITALS: BP 109/69
[2017-11-11] MEDS: ATORVASTATIN 20 MG (LIPITOR) TABLET PO SCH (19:57)
[2017-11-11] MEDS: FAMOTIDINE 20 MG (PEPCID) TABLET PO SCH (19:57)
[2017-11-12] MEDS: ACETAMINOPHEN 325 MG TABLET PO PRN (01:16)
[2017-11-12 05:28] VITALS: BP 105/67
[2017-11-12] MEDS: KCL 20 MEQ TAB (K-DUR) PO SCH ×2 (06:17→17:21)
[2017-11-12] MEDS: LEVOTHYROXINE 75 MCG (LEVOTHROID) TABLET PO SCH (06:17)
[2017-11-12] MEDS: ASCORBIC ACID (VIT C) 500 MG TABLET PO SCH (06:17)
[2017-11-12 06:37] LABS: INR 2.9 (0.8-1.4); PROTHROMBIN TIME PATIENT 30.9 SEC (12.2-14.7)
--- NOTE | 2017-11-12 07:38 | PM & R (SOAP) Progress Note ---
Subjective This was a face to face visit with the patient. Date Seen by Provider: Nov 12, 2017 Time Seen by Provider: 07:05 Subjective/Events-last exam Patient was seen in her room this AM Pain control adequate INR 2.9 Discussed with RN Will resume Coumadin See orders.Patient min assist for transfers Date Identified: Nov 12, 2017 Time Identified: 07:00 Medication Intervention: Coumadin resumed INR 2.9 Review of Systems Musculoskeletal: leg pain Objective Physician Exam Last Set of Vital Signs Vital Signs Date Time Temp Pulse Resp B/P (MAP) Pulse Ox O2 Delivery O2 Flow Rate FiO2 11/12/17 05:28 97.4 82 16 105/67 (80) 96 Room Air Capillary Refill : I&O Intake and Output 11/12/17 00:00 Intake Total 1500 ml Balance 1500 ml Intake Oral 1500 ml # Voids 6 # Bowel Movements 1 General: Alert, Oriented X3, Cooperative, No Acute Distress HEENT: Atraumatic, PERRLA Neck: Supple, No JVD Lungs: Clear to Auscultation Heart: Regular Rate Abdomen: Normal Bowel Sounds, Soft, No Tenderness Extremities: Other (Trace edema rt ankle) Skin: Other (Incision site healing well) Neuro: Other (Good strength other than rt hip with limitations due to tenderness and pain as well as guarding) Results Lab Data Laboratory Tests 11/11/17 05:55: White Blood Count 7.4, Red Blood Count 2.50L, Hemoglobin 8.7#L, Hematocrit 26L, Mean Corpuscular Volume 102H, Mean Corpuscular Hemoglobin 35H, Mean Corpuscular Hemoglobin Concent 34, Red Cell Distribution Width 13.1, Platelet Count 241, Mean Platelet Volume 9.9, Neutrophils (%) (Auto) 71, Lymphocytes (%) (Auto) 15, Monocytes (%) (Auto) 11, Eosinophils (%) (Auto) 2, Basophils (%) (Auto) 1, Neutrophils # (Auto) 5.3, Lymphocytes # (Auto) 1.1, Monocytes # (Auto) 0.8, Eosinophils # (Auto) 0.2, Basophils # (Auto) 0.1, Prothrombin Time 39.1H, INR Comment 4.0H, Sodium Level 139, Potassium Level 3.8, Chloride Level 108H, Carbon Dioxide Level 23, Anion Gap 8, Blood Urea Nitrogen 18, Creatinine 0.80, Estimat Glomerular Filtration Rate > 60, BUN/Creatinine Ratio 23, Glucose Level 95, Calcium Level 8.5, Corrected Calcium 9.3, Total Bilirubin 0.9, Aspartate Amino Transf (AST/SGOT) 39H, Alanine Aminotransferase (ALT/SGPT) 31, Alkaline Phosphatase 76, Total Protein 5.6L, Albumin 3.0L 11/12/17 06:10: Prothrombin Time 30.9H, INR Comment 2.9H Assessment/Plan Assessment and Plan Impacted mildly displaced fracture RT Fem neck s/p THR OSH WBAT due to fall at home MVR chronically anticoagulated Coumadin resumed and INR therapeutic Postop anemia Chronic A FIB DVT Prophylaxis on Coumadin Plan Continue Pt/OT/Pain management Monitor INR and adjust Coumadin as needed Team Conference next week 10--18 F/U with PCP DR Lula agrawal Co-Morbidities that are continuing to impact the rehab process: (include details ) KISHAN LANTIGUA MD Nov 12, 2017 07:38
[2017-11-12] MEDS: VITAMIN D3 1,000 UNITS (CHOLECALCIFEROL) TABLET PO SCH (09:04)
[2017-11-12] MEDS: meTOprolol SUCCINATE 100 MG (TOPROL XL) TAB PO SCH (09:05)
[2017-11-12] MEDS: HYDROcodone/APAP 5 MG/325 MG (LORTAB) TAB PO PRN (09:05)
[2017-11-12] MEDS: MAGNESIUM OXIDE (MAG-OX)400 MG TAB PO SCH (09:05)
[2017-11-12] MEDS: DOCUSATE SODIUM 100 MG (COLACE) CAP PO SCH ×2 (09:06→18:06)
--- NOTE | 2017-11-12 10:22 | Occupational Ther Daily Note ---
OT Current Status-Daily Note Subjective Pt seen in room, up in recliner, agreeable to OT. Pain rated 0/10 Appearance Alert, cooperative Mental Status/Objective Functional [place] Measure 0=Not Assessed/NA 4=Minimal Assistance 1=Total Assistance 5=Supervision or Setup 2=Maximal Assistance 6=Modified [place] 3=Moderate Assistance 7=Complete [place] ADL-Treatment Pt did not want to shower but did want to change clothes and brush teeth. Pt educ modified technique for donning BEATRIZ hose. Pt educ use of soft sock aid to don slipper socks, with return demo. Pt got up from recliner with SBA, following hip precautions, and walked slowly to bathroom. Skilled cues for walker management during transfers and turns. Pt able to get on/off BSC over toilet with SBA and managed clothing/hygiene with SBA. Managed donning pants with SBA, using dressing stick, with occasional skilled cues, made more difficult due to low vision. Dressed upper body with setup. Pt stood at sink to brush teeth and hair, wash hands, SBA, FWW. Pt walked to gym at least 50' with SBA, FWW, practicing walker management during turns. Able to get in/out of chair with arms with SBA, struggling a little at midpoint. Pt did 12 minutes bilat UE exercise with arm bike set at 15W resistance, taking at least one recovery break. To strengthen arms to help with transfers. Pt walked slowly back to her room and got into recliner, following hip precautions. Pt left up in chair, all needs met. Functional [place] Measure 0=Not Assessed/NA 4=Minimal Assistance 1=Total Assistance 5=Supervision or Setup 2=Maximal Assistance 6=Modified [place] 3=Moderate Assistance 7=Complete IndependenceIRFPAI Quality Coding Scale 6 Independent with activity with or without an assistive device 5 Patient requires set up or clean up by helper. Patient completes activity by themselves 4 Supervision or touching assist (CGA). [place] provide cues , steadying assist 3 The helper provides less than half the effort to complete the activity 2 The helper provides more than half the effort to complete the activity 1 Dependent. The helper does all the effort to complete an activity 7 Patient refused to complete or attempt activity 9 The patient did not perform the activity before the current illness or injury 88 Not attempted due to Medical conditions or safety concerns Grooming (FIM): 5 (SBA, FWW) Oral Hygiene (QC): 4 (SBA) Upper Body (FIM): 5 Lower Body Dressing (FIM): 5 (SBA, supervision, FWW) Toileting (FIM): 5 (SBA, BSc over toilet. Managed clothing and hygiene SBA) Toilet/Commode Transfer (FIM): 5 (SBA, BSC over toilet) Education OT Patient Education: Energy conservation, Modified ADL techniques, Progress toward Goal/Update tx plan, Purpose of tx/functional activities, Safety issues, Transfer techniques, Use of adapted equipment Teaching Recipient: Patient Teaching Methods: Demonstration, Discussion Response to Teaching: Verbalize Understanding, Return Demonstration, Reinforcement Needed OT Short Term Goals Short Term Goals Time Frame: Nov 18, 2017 Lower Body Dressing(FIM): 5 Toileting(FIM): 5 Toilet/Commode Transfer(FIM): 5 Shower Transfer(FIM): 5 Additional Short Term Goals: 1-Demonstrate ADL Tasks, 2-Verbalize Understanding , 3-ImproveStrength/Juan J 1=Demonstrate adherence to instructed precautions during ADL tasks. 2=Patient will verbalize/demonstrate understanding of assistive devices/ modifications for ADL. 3=Patient will improve strength/tolerance for activity to enable patient to perform ADL's. OT Language Therapist Goals Alf Goals Time Frame: Dec 02, 2017 Eating (FIM): 7 Eating (QC): 6 Groomin Oral Hygiene (QC): 6 Bathing(FIM): 6 Shower/Bathe Self (QC): 6 Upper Body Dressing(FIM): 6 Upper Body Dressing (QC): 6 Lower Body Dressing(FIM): 6 Lower Body Dressing (QC): 6 On/Off Footwear (QC): 6 Toileting(FIM): 6 Toileting Hygiene (QC): 6 Toilet/Commode Transfer(FIM): 6 Toilet/Commode Transfer (QC): 6 Shower Transfer(FIM): 6 Additional Goals: 1-Demonstrate ADL Tasks, 2-Verbalize Understanding, 3- ImproveStrength/Juan J 1=Demonstrate adherence to instructed precautions during ADL tasks. 2=Patient will verbalize/demonstrate understanding of assistive devices/ modifications for ADL. 3=Patient will improve strength/tolerance for activity to enable patient to perform ADL's. OT Education/Plan Problem List/Assessment Pt would benefit from skilled OT to increase her independence in basic self care Discharge Recommendations Plan/Recommendations: Continue POC Treatment Plan/Plan of Care Patient would benefit from OT for education, treatment and training to promote independence in ADL's, mobility, safety and/or upper extremity function for ADL' s. Plan of Care: ADL Retraining, Functional Mobility, Group Exercise/Act as Ind ( education, exercise, act tolerance, funct mobility, socialization), UE Funct Exercise/Act, UE Neuromus Re-Ed/Coord, OTHER (low vision education as applicable ) Treatment Duration: Dec 02, 2017 Frequency: At least 5 of 7 days/Wk (IRF) Estimated Hrs Per Day: 1.5 hours per day Agreement: Yes Rehab Potential: Good Time/GCodes Start Time: 08:45 Stop Time: 10:15 Total Time Billed (hr/min): 90 Billed Treatment Time visit, 45 minutes ADL, 20 minutes exercise, 25 minutes functional activity KASH DUMAS OT Nov 12, 2017 10:22
--- NOTE | 2017-11-12 12:34 | Physical Therapy Daily Note ---
PT Daily Note-Current Subjective Pt. agreeable to Rx. States she feels she is making good progress. No pain to speak of except during some of her exercises. 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 Patient completes activity by themselves 4 Supervision or touching assist (CGA). [place] provide cues , steadying assist 3 The helper provides less than half the effort to complete the activity 2 The helper provides more than half the effort to complete the activity 1 Dependent. The helper does all the effort to complete an activity 7 Patient refused to complete or attempt activity 9 The patient did not perform the activity before the current illness or injury 88 Not attempted due to Medical conditions or safety concerns Transfers (B, C, W/C) (FIM): 4 Scootin Rollin Supine to/from Sit: 4 Sit to/from Stand: 5 Bed to/from Chair: 5 needs min assist for RLE into bed, and for trunk OOB Weight Bearing Right Lower Extremity: Right Weight Bearing/Tolerated Left Lower Extremity: Left Full Weight Bearing Gait Training Does the Patient Walk?: Yes Gait (FIM): 5 Distance (FIM): 3=150 ft (175x2, 100, 25) Gait Level of Assist: 5 Gait Persons Needed: 1 Gait Assistive Device: FWW slow and careful Exercises Supine Ex: Bridging (to scoot), Ankle pumps, Quad Set, Rolling, Glut sets, Heel Slides, Short Arc Quads, Scooting, Straight leg raise (with assist), Hip abd/add Supine Reps: 12 (x2) Seated Therapy Exercises: Ankle pumps, Sit to stand, Long arc quads, Hip flexion (left), Hip abd/add Seated Reps: 15 NuStep Minutes: 12 NuStep Workload: 2 Assessment Current Status: Good Progress fatigued, needs rest breaks PT Short Term Goals Short Term Goals Time Frame: Nov 18, 2017 Gait (FIM): 5 Gait Distance Comment: 200' Gait Level of Assist: 5 Gait Assistive Device: FWW PT Nursing Home Goals Nursing Home Goals PT Nursing Home Goals Time Frame: Dec 02, 2017 Transfers (B,C,W/C) (FIM): 7 Sit to Lying (QC): 6 Lying-Sitting on Side/Bed(QC): 6 Sit to Stand (QC): 6 Rollin Roll Left to Right (QC): 6 Chair/Ldi-yd-Sacfd Xfer(QC): 6 Car Transfer (QC): 6 Does the Patient Walk: Yes Gait (FIM): 6 Distance: 300' Walk 10 feet (QC): 6 Walk 10ft-Uneven Surface(QC): 6 Walk 50ft with 2 Turns (QC): 6 Walk 150 ft (QC): 6 Gait Level of Assist: 6 Gait Assistive Device: FWW Stairs (FIM): 5 # of Steps: 12 1 Step (curb) (QC): 4 4 Steps (QC): 4 12 Steps (QC): 4 Stairs Level Of Assist: 5 PT Plan Treatment/Plan Treatment Plan: Continue Plan of Care Treatment Plan: Bed Mobility, Education, Functional Activity Juan J, Functional Strength, Group Therapy, Gait, Safety, Therapeutic Exercise, Transfers Treatment Duration: Dec 02, 2017 Frequency: At least 5 of 7 days/Wk (IRF) Estimated Hrs Per Day: 1.5 hours per day Patient and/or Family Agrees t: Yes Safety Risks/Education Patient Education: Gait Training, Transfer Techniques, Correct Positioning, Disease Process, Safety Issues Teaching Recipient: Patient Teaching Methods: Demonstration, Discussion Response to Teaching: Verbalize Understanding, Return Demonstration, Reinforcement Needed Time/GCodes Time In: 1050 Time Out: 1220 Total Billed Treatment Time: 90 Total Billed Treatment 1,FA35m,GT25m,EX30m G Codes Necessary: EJAN CARLOS Soria BASEBALL PLAYER Nov 12, 2017 12:33
[2017-11-12 17:10] VITALS: BP 109/69
[2017-11-12] MEDS: warFARin 2.5 MG (COUMADIN) TAB PO SCH (17:21)
[2017-11-12] MEDS: ATORVASTATIN 20 MG (LIPITOR) TABLET PO SCH (20:04)
[2017-11-12] MEDS: FAMOTIDINE 20 MG (PEPCID) TABLET PO SCH (20:04)
[2017-11-13] MEDS: ACETAMINOPHEN 325 MG TABLET PO PRN (02:25)
[2017-11-13 06:03] VITALS: BP 108/73
[2017-11-13] MEDS: LEVOTHYROXINE 75 MCG (LEVOTHROID) TABLET PO SCH (06:33)
[2017-11-13] MEDS: KCL 20 MEQ TAB (K-DUR) PO SCH ×2 (06:33→17:08)
[2017-11-13] MEDS: ASCORBIC ACID (VIT C) 500 MG TABLET PO SCH (06:33)
[2017-11-13] MEDS: meTOprolol SUCCINATE 100 MG (TOPROL XL) TAB PO SCH (08:41)
[2017-11-13] MEDS: DOCUSATE SODIUM 100 MG (COLACE) CAP PO SCH ×2 (08:41→20:45)
[2017-11-13] MEDS: VITAMIN D3 1,000 UNITS (CHOLECALCIFEROL) TABLET PO SCH (08:41)
[2017-11-13] MEDS: MAGNESIUM OXIDE (MAG-OX)400 MG TAB PO SCH (08:42)
[2017-11-13] MEDS: HYDROcodone/APAP 5 MG/325 MG (LORTAB) TAB PO PRN (08:42)
[2017-11-13 16:08] VITALS: BP 101/67
[2017-11-13] MEDS: warFARin 2.5 MG (COUMADIN) TAB PO SCH (17:08)
[2017-11-13] MEDS: ATORVASTATIN 20 MG (LIPITOR) TABLET PO SCH (20:45)
[2017-11-13] MEDS: FAMOTIDINE 20 MG (PEPCID) TABLET PO SCH (20:45)
[2017-11-14] MEDS: ACETAMINOPHEN 325 MG TABLET PO PRN (00:06)
[2017-11-14 05:51] VITALS: BP_SYST 102; BP_SYST 104; BP_DIAS 42; BP_DIAS 58
[2017-11-14 06:21] LABS: INR 2.3 (0.8-1.4); PROTHROMBIN TIME PATIENT 25.8 SEC (12.2-14.7)
[2017-11-14] MEDS: KCL 20 MEQ TAB (K-DUR) PO SCH ×2 (06:32→17:24)
[2017-11-14] MEDS: ASCORBIC ACID (VIT C) 500 MG TABLET PO SCH (06:32)
[2017-11-14] MEDS: LEVOTHYROXINE 75 MCG (LEVOTHROID) TABLET PO SCH (06:32)
[2017-11-14 09:10] VITALS: BP 95/62
--- NOTE | 2017-11-14 09:10 | Physical Therapy Daily Note ---
PT Daily Note-Current Subjective Pt. agrees to Rx. States she feels she is making progress and getting stronger Pain Numeric Pain Scale: 0-No Pain Mental Status Patient Orientation: Normal For Age Transfers Functional [place] Measure 0=Not Assessed/NA 4=Minimal Assistance 1=Total Assistance 5=Supervision or Setup 2=Maximal Assistance 6=Modified [place] 3=Moderate Assistance 7=Complete IndependenceIRFPAI Quality Coding Scale 6 Independent with activity with or without an assistive device 5 Patient requires set up or clean up by helper. Patient completes activity by themselves 4 Supervision or touching assist (CGA). [place] provide cues , steadying assist 3 The helper provides less than half the effort to complete the activity 2 The helper provides more than half the effort to complete the activity 1 Dependent. The helper does all the effort to complete an activity 7 Patient refused to complete or attempt activity 9 The patient did not perform the activity before the current illness or injury 88 Not attempted due to Medical conditions or safety concerns Transfers (B, C, W/C) (FIM): 4 Scootin Rollin Supine to/from Sit: 4 (needs assist RLE in out bed) Sit to/from Stand: 5 Weight Bearing Right Lower Extremity: Right Weight Bearing/Tolerated Left Lower Extremity: Left Full Weight Bearing Gait Training Does the Patient Walk?: Yes Distance (FIM): 3=150 ft (175x2) Gait Level of Assist: 5 Gait Persons Needed: 1 Gait Assistive Device: FWW slow and methodical about her steps and pattern Exercises Supine Ex: Ankle pumps, Quad Set, Rolling, Glut sets, Heel Slides, Short Arc Quads, Scooting, Straight leg raise (assist), Hip abd/add Supine Reps: 10 (x2) Treatments toileted and dressed with min assist LEs Assessment Current Status: Good Progress PT Short Term Goals Short Term Goals Time Frame: Nov 18, 2017 Gait (FIM): 5 Gait Distance Comment: 200' Gait Level of Assist: 5 Gait Assistive Device: FWW PT Sorting Cows Worker Goals Halfway Goals PT Sorting Cows Worker Goals Time Frame: Dec 02, 2017 Transfers (B,C,W/C) (FIM): 7 Sit to Lying (QC): 6 Lying-Sitting on Side/Bed(QC): 6 Sit to Stand (QC): 6 Rollin Roll Left to Right (QC): 6 Chair/Atw-fg-Occvc Xfer(QC): 6 Car Transfer (QC): 6 Does the Patient Walk: Yes Gait (FIM): 6 Distance: 300' Walk 10 feet (QC): 6 Walk 10ft-Uneven Surface(QC): 6 Walk 50ft with 2 Turns (QC): 6 Walk 150 ft (QC): 6 Gait Level of Assist: 6 Gait Assistive Device: FWW Stairs (FIM): 5 # of Steps: 12 1 Step (curb) (QC): 4 4 Steps (QC): 4 12 Steps (QC): 4 Stairs Level Of Assist: 5 PT Plan Treatment/Plan Treatment Plan: Continue Plan of Care Treatment Plan: Bed Mobility, Education, Functional Activity Juan J, Functional Strength, Group Therapy, Gait, Safety, Therapeutic Exercise, Transfers Treatment Duration: Dec 02, 2017 Frequency: At least 5 of 7 days/Wk (IRF) Estimated Hrs Per Day: 1.5 hours per day Patient and/or Family Agrees t: Yes Safety Risks/Education Patient Education: Gait Training, Transfer Techniques, Correct Positioning, Disease Process, Safety Issues Teaching Recipient: Patient Teaching Methods: Demonstration, Discussion Response to Teaching: Verbalize Understanding, Return Demonstration, Reinforcement Needed Time/GCodes Time In: 800 Time Out: 900 Total Billed Treatment Time: 60 Total Billed Treatment 1,FA25m,EX15m,GT20m G Codes Necessary: JEAN CARLOS Soria PTA Nov 14, 2017 09:10
[2017-11-14] MEDS: MAGNESIUM OXIDE (MAG-OX)400 MG TAB PO SCH (09:11)
[2017-11-14] MEDS: DOCUSATE SODIUM 100 MG (COLACE) CAP PO SCH ×2 (09:11→21:00)
[2017-11-14 10:35] VITALS: BP 111/73
[2017-11-14] MEDS: meTOprolol SUCCINATE 100 MG (TOPROL XL) TAB PO SCH (10:36)
[2017-11-14] MEDS: VITAMIN D3 1,000 UNITS (CHOLECALCIFEROL) TABLET PO SCH (10:37)
--- NOTE | 2017-11-14 11:46 | Occupational Ther Daily Note ---
OT Current Status-Daily Note Subjective Pt seen in room, up in recliner, agreeable to OT. No pain mentioned. Appearance Alert, cooperative. Mental Status/Objective Functional [place] Measure 0=Not Assessed/NA 4=Minimal Assistance 1=Total Assistance 5=Supervision or Setup 2=Maximal Assistance 6=Modified [place] 3=Moderate Assistance 7=Complete [place] ADL-Treatment Pt wanted to shower. TEDs taken off and put back on, setup. Pt undressed in recliner and walked to bathroom, SBA, FWW. She got in/out of shower with SBA and washed/dried all parts with SBA to wash/dry bottom. Skilled cues to use dressing stick to dry legs. Pt dressed upper body with setup and lower body with SBA, supervision except that she needed help to don and tie shoes, dressing stick. Pt educ elastic shoe laces. ADLs took longer due to low vision. Also discussed hip precautions - her R leg tends to rest in a little internal rotation. Pt left up in recliner, all needs met. Functional [place] Measure 0=Not Assessed/NA 4=Minimal Assistance 1=Total Assistance 5=Supervision or Setup 2=Maximal Assistance 6=Modified [place] 3=Moderate Assistance 7=Complete IndependenceIRFPAI Quality Coding Scale 6 Independent with activity with or without an assistive device 5 Patient requires set up or clean up by helper. Patient completes activity by themselves 4 Supervision or touching assist (CGA). [place] provide cues , steadying assist 3 The helper provides less than half the effort to complete the activity 2 The helper provides more than half the effort to complete the activity 1 Dependent. The helper does all the effort to complete an activity 7 Patient refused to complete or attempt activity 9 The patient did not perform the activity before the current illness or injury 88 Not attempted due to Medical conditions or safety concerns Bathing (FIM): 5 (Shower chair, grab bar, hand held shower, long handled sponge. Washed and dried all parts) Upper Body (FIM): 5 (setup) Lower Body Dressing (FIM): 4 (SBA for doffing/donning pants.Help to get shoes on/off and tied. FWW) Shower Transfer(FIM): 5 (SBA shower chair, grab bars) Education OT Patient Education: Modified ADL techniques, Progress toward Goal/Update tx plan, Purpose of tx/functional activities, Use of adapted equipment Teaching Recipient: Patient Teaching Methods: Demonstration, Discussion Response to Teaching: Verbalize Understanding, Return Demonstration OT Short Term Goals Short Term Goals Time Frame: Nov 18, 2017 Lower Body Dressing(FIM): 5 Toileting(FIM): 5 Toilet/Commode Transfer(FIM): 5 Shower Transfer(FIM): 5 Additional Short Term Goals: 1-Demonstrate ADL Tasks, 2-Verbalize Understanding , 3-ImproveStrength/Juan J 1=Demonstrate adherence to instructed precautions during ADL tasks. 2=Patient will verbalize/demonstrate understanding of assistive devices/ modifications for ADL. 3=Patient will improve strength/tolerance for activity to enable patient to perform ADL's. OT Trout Farmer Goals Trout Farmer Goals Time Frame: Dec 02, 2017 Eating (FIM): 7 Eating (QC): 6 Groomin Oral Hygiene (QC): 6 Bathing(FIM): 6 Shower/Bathe Self (QC): 6 Upper Body Dressing(FIM): 6 Upper Body Dressing (QC): 6 Lower Body Dressing(FIM): 6 Lower Body Dressing (QC): 6 On/Off Footwear (QC): 6 Toileting(FIM): 6 Toileting Hygiene (QC): 6 Toilet/Commode Transfer(FIM): 6 Toilet/Commode Transfer (QC): 6 Shower Transfer(FIM): 6 Additional Goals: 1-Demonstrate ADL Tasks, 2-Verbalize Understanding, 3- ImproveStrength/Juan J 1=Demonstrate adherence to instructed precautions during ADL tasks. 2=Patient will verbalize/demonstrate understanding of assistive devices/ modifications for ADL. 3=Patient will improve strength/tolerance for activity to enable patient to perform ADL's. OT Education/Plan Problem List/Assessment Pt would benefit from skilled OT to increase her independence in basic self care Discharge Recommendations Plan/Recommendations: Continue POC Treatment Plan/Plan of Care Patient would benefit from OT for education, treatment and training to promote independence in ADL's, mobility, safety and/or upper extremity function for ADL' s. Plan of Care: ADL Retraining, Functional Mobility, Group Exercise/Act as Ind ( education, exercise, act tolerance, funct mobility, socialization), UE Funct Exercise/Act, UE Neuromus Re-Ed/Coord, OTHER (low vision education as applicable ) Treatment Duration: Dec 02, 2017 Frequency: At least 5 of 7 days/Wk (IRF) Estimated Hrs Per Day: 1.5 hours per day Agreement: Yes Rehab Potential: Good Time/GCodes Start Time: 09:30 Stop Time: 10:30 Total Time Billed (hr/min): 60 Billed Treatment Time visit, 60 minutes ADL KASH DUMAS OT Nov 14, 2017 11:46
--- NOTE | 2017-11-14 13:37 | Physical Therapy Daily Note ---
PT Daily Note-Current Subjective Pt. agrees to Rx. States she hopes to rest a little later. No pain Pain Numeric Pain Scale: 0-No Pain Mental Status Patient Orientation: Normal For Age Transfers Functional [place] Measure 0=Not Assessed/NA 4=Minimal Assistance 1=Total Assistance 5=Supervision or Setup 2=Maximal Assistance 6=Modified [place] 3=Moderate Assistance 7=Complete IndependenceIRFPAI Quality Coding Scale 6 Independent with activity with or without an assistive device 5 Patient requires set up or clean up by helper. Patient completes activity by themselves 4 Supervision or touching assist (CGA). [place] provide cues , steadying assist 3 The helper provides less than half the effort to complete the activity 2 The helper provides more than half the effort to complete the activity 1 Dependent. The helper does all the effort to complete an activity 7 Patient refused to complete or attempt activity 9 The patient did not perform the activity before the current illness or injury 88 Not attempted due to Medical conditions or safety concerns all TRFs sit to stand Mod I to SBA Weight Bearing Right Lower Extremity: Right Weight Bearing/Tolerated Left Lower Extremity: Left Full Weight Bearing Gait Training Does the Patient Walk?: Yes Gait Assistive Device: FWW 75ft x 2 ,50ft x 1 all very slow, concentrating on trying to put increased weight on LEs and less on UEs where she is heavy weight bearing on FWW Stair Training Stair Training: Handrails/: 2 handrails Stairs (FIM): 2 #of Steps: 4 Stairs: Pattern: Step to Level of Assist: 4 instruction for all Exercises Seated Therapy Exercises: Ankle pumps, Sit to stand, Long arc quads Seated Reps: 5 Assessment Current Status: Good Progress PT Short Term Goals Short Term Goals Time Frame: Nov 18, 2017 Gait (FIM): 5 Gait Distance Comment: 200' Gait Level of Assist: 5 Gait Assistive Device: FWW PT Senior Living Goals Senior Living Goals PT Senior Living Goals Time Frame: Dec 02, 2017 Transfers (B,C,W/C) (FIM): 7 Sit to Lying (QC): 6 Lying-Sitting on Side/Bed(QC): 6 Sit to Stand (QC): 6 Rollin Roll Left to Right (QC): 6 Chair/Eje-mz-Vghux Xfer(QC): 6 Car Transfer (QC): 6 Does the Patient Walk: Yes Gait (FIM): 6 Distance: 300' Walk 10 feet (QC): 6 Walk 10ft-Uneven Surface(QC): 6 Walk 50ft with 2 Turns (QC): 6 Walk 150 ft (QC): 6 Gait Level of Assist: 6 Gait Assistive Device: FWW Stairs (FIM): 5 # of Steps: 12 1 Step (curb) (QC): 4 4 Steps (QC): 4 12 Steps (QC): 4 Stairs Level Of Assist: 5 PT Plan Treatment/Plan Treatment Plan: Continue Plan of Care Treatment Plan: Bed Mobility, Education, Functional Activity Juan J, Functional Strength, Group Therapy, Gait, Safety, Therapeutic Exercise, Transfers Treatment Duration: Dec 02, 2017 Frequency: At least 5 of 7 days/Wk (IRF) Estimated Hrs Per Day: 1.5 hours per day Patient and/or Family Agrees t: Yes Safety Risks/Education Patient Education: Gait Training, Transfer Techniques, Steps, Correct Positioning, Safety Issues Teaching Recipient: Patient Teaching Methods: Demonstration, Discussion Response to Teaching: Verbalize Understanding, Return Demonstration, Reinforcement Needed Time/GCodes Time In: 1300 Time Out: 1330 Total Billed Treatment Time: 30 Total Billed Treatment 1,GT20,FA10 G Codes Necessary: JEAN CARLOS Soria IN FLIGHT REFUELING OPERATOR Nov 14, 2017 13:37
--- NOTE | 2017-11-14 15:00 | Occupational Ther Daily Note ---
OT Current Status-Daily Note Subjective Pt seen in room, up in recliner, agreeable to OT. No pain mentioned. Appearance Alert, cooperative Mental Status/Objective Functional [place] Measure 0=Not Assessed/NA 4=Minimal Assistance 1=Total Assistance 5=Supervision or Setup 2=Maximal Assistance 6=Modified [place] 3=Moderate Assistance 7=Complete [place] ADL-Treatment Functional [place] Measure 0=Not Assessed/NA 4=Minimal Assistance 1=Total Assistance 5=Supervision or Setup 2=Maximal Assistance 6=Modified [place] 3=Moderate Assistance 7=Complete IndependenceIRFPAI Quality Coding Scale 6 Independent with activity with or without an assistive device 5 Patient requires set up or clean up by helper. Patient completes activity by themselves 4 Supervision or touching assist (CGA). [place] provide cues , steadying assist 3 The helper provides less than half the effort to complete the activity 2 The helper provides more than half the effort to complete the activity 1 Dependent. The helper does all the effort to complete an activity 7 Patient refused to complete or attempt activity 9 The patient did not perform the activity before the current illness or injury 88 Not attempted due to Medical conditions or safety concerns Other Treatment Pt education in 5 different bilat UE exercises with red theraband (medium resistance), to strengthen arms to help with transfers and to increase activity tolerance. Because she has low vision, exercises were done inconsistent sequence to facilitate learning. She completed 10 reps of each exercise, after education and with occasional skilled cues to do them correctly. She did each one an additional 3 times to reinforce the exercises and needed fewer cues. Pt left up in recliner, all needs met. Education OT Patient Education: Exercise program, Purpose of tx/functional activities Teaching Recipient: Patient Teaching Methods: Demonstration, Discussion Response to Teaching: Verbalize Understanding, Return Demonstration, Reinforcement Needed OT Short Term Goals Short Term Goals Time Frame: Nov 18, 2017 Lower Body Dressing(FIM): 5 Toileting(FIM): 5 Toilet/Commode Transfer(FIM): 5 Shower Transfer(FIM): 5 Additional Short Term Goals: 1-Demonstrate ADL Tasks, 2-Verbalize Understanding , 3-ImproveStrength/Juan J 1=Demonstrate adherence to instructed precautions during ADL tasks. 2=Patient will verbalize/demonstrate understanding of assistive devices/ modifications for ADL. 3=Patient will improve strength/tolerance for activity to enable patient to perform ADL's. OT Airplane Navigator Goals Airplane Navigator Goals Time Frame: Dec 02, 2017 Eating (FIM): 7 Eating (QC): 6 Groomin Oral Hygiene (QC): 6 Bathing(FIM): 6 Shower/Bathe Self (QC): 6 Upper Body Dressing(FIM): 6 Upper Body Dressing (QC): 6 Lower Body Dressing(FIM): 6 Lower Body Dressing (QC): 6 On/Off Footwear (QC): 6 Toileting(FIM): 6 Toileting Hygiene (QC): 6 Toilet/Commode Transfer(FIM): 6 Toilet/Commode Transfer (QC): 6 Shower Transfer(FIM): 6 Additional Goals: 1-Demonstrate ADL Tasks, 2-Verbalize Understanding, 3- ImproveStrength/Juan J 1=Demonstrate adherence to instructed precautions during ADL tasks. 2=Patient will verbalize/demonstrate understanding of assistive devices/ modifications for ADL. 3=Patient will improve strength/tolerance for activity to enable patient to perform ADL's. OT Education/Plan Problem List/Assessment Pt would benefit from skilled OT to increase her independence in basic self care Discharge Recommendations Plan/Recommendations: Continue POC Treatment Plan/Plan of Care Patient would benefit from OT for education, treatment and training to promote independence in ADL's, mobility, safety and/or upper extremity function for ADL' s. Plan of Care: ADL Retraining, Functional Mobility, Group Exercise/Act as Ind ( education, exercise, act tolerance, funct mobility, socialization), UE Funct Exercise/Act, UE Neuromus Re-Ed/Coord, OTHER (low vision education as applicable ) Treatment Duration: Dec 02, 2017 Frequency: At least 5 of 7 days/Wk (IRF) Estimated Hrs Per Day: 1.5 hours per day Agreement: Yes Rehab Potential: Good Time/GCodes Start Time: 13:30 Stop Time: 14:00 Total Time Billed (hr/min): 30 Billed Treatment Time visit, 30 minutes exercise KASH DUMAS OT Nov 14, 2017 15:00
[2017-11-14 16:29] VITALS: BP 108/68
[2017-11-14] MEDS: warFARin 2.5 MG (COUMADIN) TAB PO SCH (17:14)
[2017-11-14] MEDS ORDERED: warFARin 5 MG (COUMADIN) TAB PO NR (17:15)
--- NOTE | 2017-11-14 19:08 | PM & R (SOAP) Progress Note ---
Subjective This was a face to face visit with the patient. Date Seen by Provider: Nov 14, 2017 Time Seen by Provider: 18:30 Subjective/Events-last exam Patient was seen in her room this evening Patient Modified Independent to SBA for transfers INR 2.3 Review of Systems Musculoskeletal: leg pain Objective Physician Exam Last Set of Vital Signs Vital Signs Date Time Temp Pulse Resp B/P (MAP) Pulse Ox O2 Delivery O2 Flow Rate FiO2 11/14/17 16:29 98.2 78 16 108/68 (81) 99 Room Air Capillary Refill : I&O Intake and Output 11/14/17 00:00 Intake Total 1310 ml Balance 1310 ml Intake Oral 1310 ml # Voids 10 # Bowel Movements 2 General: Alert, Oriented X3, Cooperative, No Acute Distress HEENT: Atraumatic, PERRLA Neck: Supple, No JVD Lungs: Clear to Auscultation Heart: Regular Rate Abdomen: Normal Bowel Sounds, Soft, No Tenderness Extremities: Other (Trace edema rt ankle) Skin: Other (Incision site healing well) Neuro: Other (Good strength other than rt hip with limitations due to tenderness and pain as well as guarding) Results Lab Data Laboratory Tests 11/12/17 06:10: Prothrombin Time 30.9H, INR Comment 2.9H 11/14/17 06:00: Prothrombin Time 25.8H, INR Comment 2.3H Assessment/Plan Assessment and Plan Impacted mildly displaced fracture of rt fem neck s/p THR OSH due to fall at home MVR chronically anticoagulated Psto op anemia Chronic A FIB DVT Prophylaxis on Coumadin Plan Continue PT/OT Team Conference 11-16-17 Co-Morbidities that are continuing to impact the rehab process: (include details ) KISHAN LANTIGUA MD Nov 14, 2017 19:08
--- NOTE | 2017-11-14 19:13 | Individualized Plan of Care ---
Individualized Plan of Care Rehab Nursing IPOC Order Admission Date Nov 10, 2017 at 19:04 Current Orders Orders Admission Order(Inpt,Obs,Sdc) (11/10/17 19:52) Vital Signs: Routine (Order) 08,16,00 (11/10/17 19:52) Sequential Compression Device 08,20 (11/10/17 19:52) Adult Manager-Inpt Rehab Con (11/10/17 19:52) Rehab Nursing Orders-Ipoc (11/10/17 19:52) Physical Therapy Rehab Orders (11/10/17 19:52) Occupational Therapy Rehab Ord (11/10/17 19:52) Speech Therapy Rehab Orders (11/10/17 19:52) General/Regular (11/11/17 Breakfast) Turn And Reposition Q2HR (11/10/17 19:52) Weight Bearing Status (11/10/17 19:52) Weekly Weight (Lbs) WEEK (11/10/17 19:52) Code/Resuscitation (11/10/17 19:52) Initiate Admission Nursing Pro .admission (11/10/17 19:52) Consult Physician (11/10/17 19:57) Cbc With Automated Diff (11/11/17 06:00) Comprehensive Metabolic Panel (11/11/17 06:00) Protime With Inr (11/11/17 06:00) Hydrocodone/Apap 5/325 Tablet (Lortab 5 (11/10/17 20:00) Tramadol Tablet (Ultram Tablet) (11/10/17 20:00) Acetaminophen Tablet/Caplet (Tylenol T (11/10/17 20:00) Warfarin Tablet (Coumadin Tablet) (11/11/17 18:00) Ascorbic Acid Tablet (Vitamin C Tablet) (11/11/17 07:00) Docusate Sodium Capsule (Colace Capsule) (11/10/17 21:00) Citalopram Tablet (Celexa Tablet) (11/11/17 09:00) Famotidine Tablet (Pepcid Tablet) (11/10/17 21:00) Levothyroxine Tablet (Synthroid Tablet) (11/11/17 06:30) Magnesium Oxide Tablet (Mag Ox Tablet) (11/11/17 09:00) Metoprolol Succinate (Xl) Tab (Toprol Xl (11/11/17 09:00) Potassium Chloride (Tablet) (K Dur Table (11/11/17 07:00) Pharmacy Communication (Pharmacy Communi (11/10/17 20:00) Cholecalciferol Capsule/Tablet (Vitamin (11/11/17 09:00) Atorvastatin Tablet (Lipitor Tablet) (11/10/17 21:00) Potassium Chloride (Tablet) (K Dur Table (11/11/17 07:00) Influenza Quad (5+Yoa) 2018- (Afluria (11/11/17 07:00) Pharmacy Communication (Pharmacy Communi (11/11/17 11:30) Patient Visit (11/11/17 ) Pt Eval Low Complexity (11/11/17 ) Gait Training, Ea 15 Min (11/11/17 ) Exercise Therap, Ea 15 Min (11/11/17 ) Patient Visit (11/11/17 ) Speech Sound Lang Comp (11/11/17 ) Protime With Inr (11/12/17 05:48) Pharmacy Communication (Pharmacy Communi (11/12/17 07:45) Patient Visit (11/12/17 ) Exercise Therap, Ea 15 Min (11/12/17 ) Functional Activities, Ea 15 (11/12/17 ) Gait Training, Ea 15 Min (11/12/17 ) Protime With Inr (11/14/17 05:44) Patient Visit (11/14/17 ) Functional Activities, Ea 15 (11/14/17 ) Exercise Therap, Ea 15 Min (11/14/17 ) Gait Training, Ea 15 Min (11/14/17 ) Protime With Inr (11/15/17 06:00) Warfarin Tablet (Coumadin Tablet) (11/14/17 17:15) Rehab Nursing Orders: Ongoing Assess. of Cognitive Status, Ongoing Assess. of Function Status, Disease Management & Educaiton, DVT Prophylaxis, Fall Prevention, Fluid/Electrolyte/Nutrition Mgmt, Infection Prevention, Medication Management & Education, Management of Risks & Complications, Management of Skin Intergrity, Nutrition Management, Pain Management, Patient/Family Support PT IPOC Problem List: Activity Tolerance, Functional Strength, Safety, Balance, Gait, Transfer, Bed Mobility, ROM Treatment Plan: Continue Plan of Care Bed Mobility, Education, Functional Activity Juan J, Functional Strength, Group Therapy, Gait, Safety, Therapeutic Exercise, Transfers Treatment Duration: Dec 02, 2017 Frequency: At least 5 of 7 days/Wk (IRF) Estimated Hrs Per Day: 1.5 hours per day OT IPOC Problems: Decreased Activ Tolerance, Decreased UE Strength, Dependent Transfers , Impaired Self-Care Skills, Visual-Perceptual Deficit OT Treatment, Training and Edu: Yes OT Problems Pt would benefit from skilled OT to increase her independence in basic self care Plan of Care: ADL Retraining, Functional Mobility, Group Exercise/Act as Ind ( education, exercise, act tolerance, funct mobility, socialization), UE Funct Exercise/Act, UE Neuromus Re-Ed/Coord, OTHER (low vision education as applicable ) Treatment Duration: Dec 02, 2017 Frequency: At least 5 of 7 days/Wk (IRF) Estimated Hrs Per Day: 1.[address] IPOC Speech Therapy Treatment Plan: Discontinue ST Treatment Duration: Nov 14, 2017 Frequency: Modified Program (IRF) (0) Estimated Hrs Per Day: Other (0) Adult Manager/Case Mgmt Adult Manager/Case Managemen: Discharge Planning, Patient/Family Counseling Dietitian/Plane Tableman Dietitian/Plane Tableman to monitor nutritional status and make changes and/or recommendations as needed and work with speech pathology on dietary upgrades as the occur. Physician IPOC Medical Issues being managed closely and that require the 24 hour availability of a physician: Management of INR and Coumadin dosage A FIB Postop anemia [facility] code 08.11 Etiologic DX Impacted mildly displaced fracture of rt fem neck Medical Issues: DVT Prophylaxis, Falls Precautions, Fluid/Electrolyte/ Nutrition Balance, Infection Protection, Pain Management, Wound Care, Other ( List) (as per above) Brief Synthesis of Preadmission Screen, Post-Admission Evaluation, and Therapy Evaluations: 72 yo female who had been Independent and living with family who fell and sustained a Hip fracture Is chronicall anticoagulated but Coumadin was held in perioperative period Now resumed and INR therapeutic 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
[2017-11-14] MEDS ORDERED: TEMAZEPAM 15 MG (RESTORIL) CAP PO PRN (20:15)
--- NOTE | 2017-11-14 20:21 | Consultation ---
History of Present Illness History of Present Illness Patient Consulted On(gerard/time) 11/14/17 20:15 Date Seen by Provider: Nov 14, 2017 Time Seen by Provider: 20:16 History of Present Illness This is a 72 year old female who sustained a right hip fracture after falling from a chair while cleaning a ceiling fan. She underwent surgery in and has been transferred to inpatient rehab for further therapies and strengthening. She has a history of mitral valve replacement as well as atrial fibrillation. I am asked to consult for medical management. Allergies and Home Medications Allergies Coded Allergies: Sulfa (Sulfonamide Antibiotics) (Verified Allergy, Unknown, 01/08/08) meperidine (Verified Allergy, Unknown, 01/08/08) Home Medications Ascorbic Acid 500 Mg Tablet, 500 MG PO DAILY, (Reported) Calcium Carbonate 600 Mg Tablet, 600 MG PO DAILY, (Reported) Cholecalciferol (Vitamin D3) 2,000 Unit Capsule, 2,000 UNIT PO DAILY, (Reported) Docusate Sodium 100 Mg Capsule, 100 MG PO BID PRN for CONSTIPATION-1ST LINE, ( Reported) Escitalopram Oxalate 10 Mg Tablet, 10 MG PO DAILY, (Reported) Famotidine 40 Mg Tablet, 40 MG PO HS, (Reported) Furosemide 20 Mg Tablet, 20 MG PO DAILY, (Reported) Levothyroxine Sodium 75 Mcg Tablet, 75 MCG PO DAILY, (Reported) Magnesium Oxide 400 Mg Tablet, 400 MG PO DAILY, (Reported) Metoprolol Succinate 100 Mg Tab.er.24h, 100 MG PO DAILY, (Reported) Potassium Chloride 20 Meq Tab.er.prt, 20 MEQ PO BID, (Reported) Pravastatin Sodium 80 Mg Tablet, 80 MG PO DAILY, (Reported) Warfarin Sodium 5 Mg Tablet, PO UD, (Reported) Patient Home Medication List Home Medication List Reviewed: Yes Past Avzzrnk-Lulxwp-Nyjpap Hx Patient Social History Alcohol Use: Occasionally Uses Number of Drinks Today: 0 Alcohol Beverage of Choice: Wine Recreational Drug Use: No Type Used: Cigarettes Former Smoker, Quit: Apr 15, 1995 Recent Foreign Travel: No Contact w/Someone Who Travel: No Recent Infectious Disease Expo: No Recent Hopitalizations: Yes Immunizations Up To Date Date of Influenza Vaccine: Nov 14, 2016 Seasonal Allergies Seasonal Allergies: No Past Medical History Surgeries: Yes (RIGHT MASTECTOMY; CABG; MITRAL VALVE REPLACEMENT; COLONOSCOPIES ) Breast, Cardiac, CABG, Hysterectomy, Valve Replacement Respiratory: No Cardiac: Yes Atrial Fibrillation, Hypertension, Valvular Heart Disease Neurological: No Reproductive Disorders: No Female Reproductive Disorders: Denies UROLOGY NURSE History: Hysterectomy, Menopausal Sexually Transmitted Disease: No HIV/AIDS: No Genitourinary: No Gastrointestinal: Yes Gastroesophageal Reflux Musculoskeletal: No Endocrine: No Hypothyroidsim Cancer: Yes Breast Did You Recieve Any Treatments: Yes What Type of Treatment Did You: Surgical Intervention Psychosocial: No Anxiety Integumentary: No Blood Disorders: Yes (IPTC) Adverse Reaction/Blood Tranf: No Family Medical History Cardiovascular disease 19 FATHER Headache disorder 19 MOTHER Hypercholesterolemia 19 FATHER Myocardial infarction 19 MOTHER Osteoporosis 19 MOTHER Thyroid disease 19 MOTHER Visual disorder 19 FATHER 19 MOTHER No Family History of: Colon cancer Hypertension Review of Systems-General Constitutional: weakness EENTM: No see HPI, No no symptoms reported, No ear discharge, No hearing loss, No ear pain, No blurred vision, No double vision, No eye pain, No tearing, No vision loss, No dental problems, No hoarseness, No mouth pain, No mouth swelling , No epistaxis, No nose congestion, No nose pain, No throat pain, No throat swelling, No other Respiratory: No no symptoms reported, No see HPI, No cough, No dyspnea on exertion, No hemoptysis, No orthopnea, No phlegm, No short of breath, No stridor , No wheezing, No other Cardiovascular: edema, palpitations Gastrointestinal: No RUQ, No LUQ, No RLQ, No LLQ, No no symptoms reported, No see HPI, No abdominal pain, No constipation, No diarrhea, No dysphagia, No hematemesis, No heartburn, No jaundice, No loss of appetite, No melena, No nausea, No vomiting, No other Genitourinary: No no symptoms reported, No see HPI, No decreased output, No discharge, No dysuria, No frequency, No hematuria, No hesitancy, No incontinence , No nocturia, No pain, No other Musculoskeletal: joint pain (right hip) Psychiatric/Neurological: Depressed, Weakness Physical Exam-General Problems Physical Exam Vital Signs Vital Signs - First Documented 11/10/17 19:10 Temp 98.4 Pulse 84 Resp 16 B/P (MAP) 147/61 (89) Pulse Ox 91 O2 Delivery Room Air Capillary Refill : General Appearance: WD/WN, no apparent distress HEENT: normal ENT inspection Neck: supple Respiratory: lungs clear Cardiovascular: systolic murmur, gallop/S4, irregularly irregular Gastrointestinal: normal bowel sounds, non tender, soft Rectal: deferred Back: no CVA tenderness Extremities: no calf tenderness, swelling (bilateral legs) Neurologic/Psychiatric: alert, oriented x 3 Skin: warm/dry (dressing to left hip dry and in place) Assessment/Plan Assessment/Plan Admission Diagnosis/Plan 1. Acute right femoral neck fracture--S/P ORIF, pain control/PT/OT 2. Paroxysmal Atrial Fibrillation/History of mitral valve replacement-- increase coumadin to get INR to 2.5-3.5 3. Post-op Anemia--repeat CBC in AM 4. Edema--restart lasix in AM, BEATRIZ hose during day 5. Hypothyroidism--home dose restarted Clinical Quality Measures DVT/VTE Risk/Contraindication: Risk Factor Score Per Nursin RFS Level Per Nursing on Admit: 4+=Very High PRIYA ALVES DO Nov 14, 2017 20:21
[2017-11-14] MEDS: ATORVASTATIN 20 MG (LIPITOR) TABLET PO SCH (21:28)
[2017-11-14] MEDS: FAMOTIDINE 20 MG (PEPCID) TABLET PO SCH (21:28)
[2017-11-15 05:17] VITALS: BP 104/66
[2017-11-15 05:31] LABS: BASOPHILS % (AUTO) 0 % (0-10); EOSINOPHILS # (AUTO) 0.1 10^3/uL (0.0-0.3); EOSINOPHILS % (AUTO) 1 % (0-10); HEMATOCRIT 32 % (35-52); HEMOGLOBIN 10.5 G/DL (11.5-16.0); LYMPHOCYTES # (AUTO) 1.7 X 10^3 (1.0-4.0); LYMPHOCYTES % (AUTO) 16 % (12-44); MEAN CORPUSCULAR HEMOGLOBIN 34 PG (25-34); MEAN CORPUSCULAR HGB CONC 32 G/DL (32-36); MEAN CORPUSCULAR VOLUME 106 FL (80-99); MEAN PLATELET VOLUME 8.9 FL (7.4-10.4); MONOCYTES # (AUTO) 0.9 X 10^3 (0.0-1.0); MONOCYTES % (AUTO) 8 % (0-12); NEUTROPHILS % (AUTO) 75 % (42-75); PLATELET COUNT 390 10^3/uL (130-400); RED BLOOD COUNT 3.06 10^6/uL (4.35-5.85); RED CELL DISTRIBUTION WIDTH 14.6 % (10.0-14.5); WHITE BLOOD COUNT 10.7 10^3/uL (4.3-11.0)
[2017-11-15 05:33] LABS: SMEAR SCAN COMMENT YES
[2017-11-15 05:43] LABS: INR 2.1 (0.8-1.4); PROTHROMBIN TIME PATIENT 23.6 SEC (12.2-14.7)
[2017-11-15] MEDS: KCL 20 MEQ TAB (K-DUR) PO SCH ×2 (06:30→17:31)
[2017-11-15] MEDS: ASCORBIC ACID (VIT C) 500 MG TABLET PO SCH (06:30)
[2017-11-15] MEDS: LEVOTHYROXINE 75 MCG (LEVOTHROID) TABLET PO SCH (06:30)
--- NOTE | 2017-11-15 08:05 | PM & R (SOAP) Progress Note ---
Subjective This was a face to face visit with the patient. Date Seen by Provider: Nov 15, 2017 Time Seen by Provider: 07:25 Subjective/Events-last exam Patient was seen in her room this AM Appreciate DR navarro note and orders Patient SBA for transfers Anemia improving Lab noted Appreciate DR Ze cross Date Identified: Nov 15, 2017 Time Identified: 07:30 Medication Intervention: Temazepam ordered for insomnia and Lasix ordered for Edema Review of Systems General: Other (insomnia) Cardiovascular: Edema Objective Physician Exam Last Set of Vital Signs Vital Signs Date Time Temp Pulse Resp B/P (MAP) Pulse Ox O2 Delivery O2 Flow Rate FiO2 11/15/17 05:17 98.1 90 16 104/66 (79) 95 Room Air Capillary Refill : I&O Intake and Output 11/15/17 00:00 Intake Total 1610 ml Balance 1610 ml Intake Oral 1610 ml # Voids 8 # Bowel Movements 3 General: Alert, Oriented X3, Cooperative, No Acute Distress HEENT: Atraumatic, PERRLA Neck: Supple, No JVD Lungs: Clear to Auscultation Heart: Regular Rate Abdomen: Normal Bowel Sounds, Soft, No Tenderness Extremities: Other (Trace edema rt ankle) Skin: Other (Incision site healing well) Neuro: Other (Good strength other than rt hip with limitations due to tenderness and pain as well as guarding) Results Lab Data Laboratory Tests 11/14/17 06:00: Prothrombin Time 25.8H, INR Comment 2.3H 11/15/17 05:20: Prothrombin Time 23.6H, INR Comment 2.1H, White Blood Count 10.7, Red Blood Count 3.06L, Hemoglobin 10.5#L, Hematocrit 32L, Mean Corpuscular Volume 106H, Mean Corpuscular Hemoglobin 34, Mean Corpuscular Hemoglobin Concent 32, Red Cell Distribution Width 14.6H, Platelet Count 390, Mean Platelet Volume 8.9, Neutrophils (%) (Auto) 75, Lymphocytes (%) (Auto) 16, Monocytes (%) (Auto) 8, Eosinophils (%) (Auto) 1, Basophils (%) (Auto) 0, Neutrophils # (Auto) 8.0H, Lymphocytes # (Auto) 1.7, Monocytes # (Auto) 0.9, Eosinophils # (Auto) 0.1, Basophils # (Auto) 0.0, Smear Scan YES Assessment/Plan Assessment and Plan Impacted mildly displaced fracture of RT fem neck s/p THR OSH due to fall at home MVR chronically anticoagulated INR trending down Insomnia on temazepam Edema lasix/gilberto hose Postop anemia-improving Chronic A FIB DVT Prophylaxis on Coumadin Plan Continue PT/OTAdjust Coumadin dose as needed Team Conference tomorrow F/U with Dr Lula agrawal Co-Morbidities that are continuing to impact the rehab process: (include details ) KISHAN LANTIGUA MD Nov 15, 2017 08:05
[2017-11-15] MEDS: MAGNESIUM OXIDE (MAG-OX)400 MG TAB PO SCH (08:12)
[2017-11-15] MEDS: VITAMIN D3 1,000 UNITS (CHOLECALCIFEROL) TABLET PO SCH (08:12)
[2017-11-15] MEDS: meTOprolol SUCCINATE 100 MG (TOPROL XL) TAB PO SCH (08:12)
[2017-11-15] MEDS: DOCUSATE SODIUM 100 MG (COLACE) CAP PO SCH ×2 (08:13→21:59)
[2017-11-15] MEDS: FUROSEMIDE 40 MG (LASIX) TAB PO SCH (08:13)
[2017-11-15 08:14] VITALS: BP 111/53
[2017-11-15 08:49] LABS: BILIRUBIN,URINE NEGATIVE (NEGATIVE); CLARITY,URINE CLEAR; COLOR,URINE YELLOW; GLUCOSE, URINE (UA) NEGATIVE (NEGATIVE); KETONES,URINE NEGATIVE (NEGATIVE); LEUKOCYTE ESTERASE ,URINE 1+ (NEGATIVE); NITRITE,URINE NEGATIVE (NEGATIVE); PH,URINE 6 (5-9); PROTEIN,URINE NEGATIVE (NEGATIVE); UROBILINOGEN,URINE NORMAL (NORMAL)
[2017-11-15 08:56] LABS: BACTERIA,URINE TRACE /HPF; WBC,URINE 0-2 /HPF
--- NOTE | 2017-11-15 11:48 | Physical Therapy Daily Note ---
PT Daily Note-Current Subjective Pt sitting in recliner upon arrival. Pt agrees to PT but reports receiving Sleep Aid last night and feels very tired this morning still. Pt reports to PT & Nurse that she doesn't handle Narcotics well in the past. Pain Numeric Pain Scale: 5-Moderate Pain Location: Right, Incisional Location Body Site: Hip Pain Description: Ache Mental Status Patient Orientation: Person, Place, Time, Situation Transfers Functional [place] Measure 0=Not Assessed/NA 4=Minimal Assistance 1=Total Assistance 5=Supervision or Setup 2=Maximal Assistance 6=Modified [place] 3=Moderate Assistance 7=Complete IndependenceIRFPAI Quality Coding Scale 6 Independent with activity with or without an assistive device 5 Patient requires set up or clean up by helper. Patient completes activity by themselves 4 Supervision or touching assist (CGA). Ivins provide cues , steadying assist 3 The helper provides less than half the effort to complete the activity 2 The helper provides more than half the effort to complete the activity 1 Dependent. The helper does all the effort to complete an activity 7 Patient refused to complete or attempt activity 9 The patient did not perform the activity before the current illness or injury 88 Not attempted due to Medical conditions or safety concerns Scootin Sit to/from Stand: 5 Sit to Stand (QC): 5 Weight Bearing Right Lower Extremity: Right Weight Bearing/Tolerated Left Lower Extremity: Left Full Weight Bearing Gait Training Does the Patient Walk?: Yes Distance (FIM): 3=150 ft Distance: 150' Walk 10 feet (QC): 5 Walk 50 ft with 2 Turns(QC): 5 Walk 150 ft (QC): 5 Gait Level of Assist: 5 Gait Persons Needed: 1 Gait Assistive Device: FWW Pt gait is very slow and BOTTLE BOOTH ATTENDANT reminds pt to strike with heel first when stepping during gait. Exercises Supine Ex: Ankle pumps, Quad Set Supine Reps: 10 Seated Therapy Exercises: Ankle pumps, Long arc quads, Hip flexion, Kicking activity Seated Reps: 10 Treatments Pt completes Supine & Seated Ex in recliner. Pt transfers from recliner & uses restroom. Pt ambulates in hallway & Therapy Commons using FWW at SBA. Pt rests in chair before returning to room to rest in recliner at end of tx. Pt has all needs met. Assessment Current Status: Good Progress Pt moves very slow and is very drowsy during tx. It takes extended time to complete tasks, especially ambulating. PT Short Term Goals Short Term Goals Time Frame: Nov 18, 2017 Gait (FIM): 5 Gait Distance Comment: 200' Gait Level of Assist: 5 Gait Assistive Device: FWW PT Advocacy Director Goals Senior Care Goals PT Advocacy Director Goals Time Frame: Dec 02, 2017 Transfers (B,C,W/C) (FIM): 7 Sit to Lying (QC): 6 Lying-Sitting on Side/Bed(QC): 6 Sit to Stand (QC): 6 Rollin Roll Left to Right (QC): 6 Chair/Zyi-pf-Zqizm Xfer(QC): 6 Car Transfer (QC): 6 Does the Patient Walk: Yes Gait (FIM): 6 Distance: 300' Walk 10 feet (QC): 6 Walk 10ft-Uneven Surface(QC): 6 Walk 50ft with 2 Turns (QC): 6 Walk 150 ft (QC): 6 Gait Level of Assist: 6 Gait Assistive Device: FWW Stairs (FIM): 5 # of Steps: 12 1 Step (curb) (QC): 4 4 Steps (QC): 4 12 Steps (QC): 4 Stairs Level Of Assist: 5 PT Plan Problem List Problem List: Activity Tolerance, Functional Strength, Safety, Balance, Gait, Transfer Treatment/Plan Treatment Plan: Continue Plan of Care Treatment Plan: Bed Mobility, Education, Functional Activity Ujan J, Functional Strength, Group Therapy, Gait, Safety, Therapeutic Exercise, Transfers Treatment Duration: Dec 02, 2017 Frequency: At least 5 of 7 days/Wk (IRF) Estimated Hrs Per Day: 1.5 hours per day Patient and/or Family Agrees t: Yes Safety Risks/Education Patient Education: Gait Training, Transfer Techniques, Correct Positioning, Safety Issues Teaching Recipient: Patient Teaching Methods: Discussion Response to Teaching: Verbalize Understanding Time/GCodes Time In: 800 Time Out: 915 Total Billed Treatment Time: 75 Total Billed Treatment 1, GT x2 (30m), FA x2 (30m) & EX (15m) G Codes Necessary: BRANDIE Byers BOTTLE BOOTH ATTENDANT Nov 15, 2017 11:48
--- NOTE | 2017-11-15 11:57 | Occupational Ther Daily Note ---
OT Current Status-Daily Note Subjective Pt seen in room, up in recliner, agreeable to OT. No pain mentioned. Appearance Alert, cooperative Mental Status/Objective Functional [place] Measure 0=Not Assessed/NA 4=Minimal Assistance 1=Total Assistance 5=Supervision or Setup 2=Maximal Assistance 6=Modified [place] 3=Moderate Assistance 7=Complete [place] ADL-Treatment Pt's R hip tends to rest in internal rotation and she made a point of watching position of hip to avoid breaking hip precautions. Brief gentle retrograde massage to R foot and lower leg due to edema, followed by application of compression stockings (setup). Pt was able to doff/don slipper socks and pants using dressing stick and don slipper socks using sock aid, setup. SBA standing to manage pants over hips, FWW. Pt dressed upper body with setup. Pt tends to "get stuck" midpoint in sit to stand. Toileted at end of tx with SBA for transfer and clothing management/hygiene. Pt left up on toilet per her request, nursing notified Functional [place] Measure 0=Not Assessed/NA 4=Minimal Assistance 1=Total Assistance 5=Supervision or Setup 2=Maximal Assistance 6=Modified [place] 3=Moderate Assistance 7=Complete IndependenceIRFPAI Quality Coding Scale 6 Independent with activity with or without an assistive device 5 Patient requires set up or clean up by helper. Patient completes activity by themselves 4 Supervision or touching assist (CGA). [place] provide cues , steadying assist 3 The helper provides less than half the effort to complete the activity 2 The helper provides more than half the effort to complete the activity 1 Dependent. The helper does all the effort to complete an activity 7 Patient refused to complete or attempt activity 9 The patient did not perform the activity before the current illness or injury 88 Not attempted due to Medical conditions or safety concerns Upper Body (FIM): 5 (setup) Lower Body Dressing (FIM): 5 (SBA, setup. Used dressing stick and sock aid to doff/don pants and socks. ) Toileting (FIM): 5 (SBA for clothing management and hygiene, BSC over toilet) Toilet/Commode Transfer (FIM): 5 (SBA on/off BSC over toilet, FWW) Other Treatment Pt walked slowly to gym, paying attention to rotation of R hip when turning. Completed 14 minutes bilat UE exercise on arm bike set at 15W resistance, with no rest breaks taken. Also did 10 reps bilat UE exercise with 2# weight, working on shoulder, elbow and forearm. To strengthen arms to help with transfers and to increase activity tolerance. Education OT Patient Education: Exercise program, Modified ADL techniques, Progress toward Goal/Update tx plan, Purpose of tx/functional activities, Safety issues, Transfer techniques, Use of adapted equipment Teaching Recipient: Patient Teaching Methods: Discussion Response to Teaching: Verbalize Understanding, Return Demonstration OT Short Term Goals Short Term Goals Time Frame: Nov 18, 2017 Lower Body Dressing(FIM): 5 Toileting(FIM): 5 Toilet/Commode Transfer(FIM): 5 Shower Transfer(FIM): 5 Additional Short Term Goals: 1-Demonstrate ADL Tasks, 2-Verbalize Understanding , 3-ImproveStrength/Juan J 1=Demonstrate adherence to instructed precautions during ADL tasks. 2=Patient will verbalize/demonstrate understanding of assistive devices/ modifications for ADL. 3=Patient will improve strength/tolerance for activity to enable patient to perform ADL's. OT Senior Care Goals Senior Care Goals Time Frame: Dec 02, 2017 Eating (FIM): 7 Eating (QC): 6 Groomin Oral Hygiene (QC): 6 Bathing(FIM): 6 Shower/Bathe Self (QC): 6 Upper Body Dressing(FIM): 6 Upper Body Dressing (QC): 6 Lower Body Dressing(FIM): 6 Lower Body Dressing (QC): 6 On/Off Footwear (QC): 6 Toileting(FIM): 6 Toileting Hygiene (QC): 6 Toilet/Commode Transfer(FIM): 6 Toilet/Commode Transfer (QC): 6 Shower Transfer(FIM): 6 Additional Goals: 1-Demonstrate ADL Tasks, 2-Verbalize Understanding, 3- ImproveStrength/Juan J 1=Demonstrate adherence to instructed precautions during ADL tasks. 2=Patient will verbalize/demonstrate understanding of assistive devices/ modifications for ADL. 3=Patient will improve strength/tolerance for activity to enable patient to perform ADL's. OT Education/Plan Problem List/Assessment Pt would benefit from skilled OT to increase her independence in basic self care Discharge Recommendations Plan/Recommendations: Continue POC Treatment Plan/Plan of Care Patient would benefit from OT for education, treatment and training to promote independence in ADL's, mobility, safety and/or upper extremity function for ADL' s. Plan of Care: ADL Retraining, Functional Mobility, Group Exercise/Act as Ind ( education, exercise, act tolerance, funct mobility, socialization), UE Funct Exercise/Act, UE Neuromus Re-Ed/Coord, OTHER (low vision education as applicable ) Treatment Duration: Dec 02, 2017 Frequency: At least 5 of 7 days/Wk (IRF) Estimated Hrs Per Day: 1.5 hours per day Agreement: Yes Rehab Potential: Good Time/GCodes Start Time: 09:30 Stop Time: 11:00 Total Time Billed (hr/min): 90 Billed Treatment Time visit, 45 minutes ADL, 25 minutes exercise, 20 minutes functional activity KASH DUMAS OT Nov 15, 2017 11:57
--- NOTE | 2017-11-15 15:20 | Physical Therapy Daily Note ---
PT Daily Note-Current Subjective Pt sitting in recliner upon arrival. Pt agrees to PT. Pain Numeric Pain Scale: 4 Location: Right, Incisional Location Body Site: Hip Pain Description: Ache, Tightness Mental Status Patient Orientation: Person, Place, Time, Situation Transfers Functional [place] Measure 0=Not Assessed/NA 4=Minimal Assistance 1=Total Assistance 5=Supervision or Setup 2=Maximal Assistance 6=Modified [place] 3=Moderate Assistance 7=Complete IndependenceIRFPAI Quality Coding Scale 6 Independent with activity with or without an assistive device 5 Patient requires set up or clean up by helper. Patient completes activity by themselves 4 Supervision or touching assist (CGA). [place] provide cues , steadying assist 3 The helper provides less than half the effort to complete the activity 2 The helper provides more than half the effort to complete the activity 1 Dependent. The helper does all the effort to complete an activity 7 Patient refused to complete or attempt activity 9 The patient did not perform the activity before the current illness or injury 88 Not attempted due to Medical conditions or safety concerns Scootin Sit to/from Stand: 5 Sit to Stand (QC): 5 Car Transfer (QC): 4 Weight Bearing Right Lower Extremity: Right Weight Bearing/Tolerated Left Lower Extremity: Left Full Weight Bearing Gait Training Does the Patient Walk?: Yes Distance (FIM): 3=150 ft Distance: 150' Walk 10 feet (QC): 5 Walk 50 ft with 2 Turns(QC): 5 Walk 150 ft (QC): 5 Gait Level of Assist: 5 Gait Persons Needed: 1 Gait Assistive Device: FWW Pt ambulates very slowly. Wheelchair Training Does the Pt Use a Wheelchair?: No Treatments Pt transfers from recliner. Pt ambulates in hallway to simulated car for transfer practice. Pt returns to room to use restroom. Pt has all needs met. Assessment Current Status: Good Progress Pt takes extended time to complete tasks, especially ambulating. PT Short Term Goals Short Term Goals Time Frame: Nov 18, 2017 Gait (FIM): 5 Gait Distance Comment: 200' Gait Level of Assist: 5 Gait Assistive Device: FWW PT Care Home Goals Care Home Goals PT Croze Machine Operator Goals Time Frame: Dec 02, 2017 Transfers (B,C,W/C) (FIM): 7 Sit to Lying (QC): 6 Lying-Sitting on Side/Bed(QC): 6 Sit to Stand (QC): 6 Rollin Roll Left to Right (QC): 6 Chair/Zic-hy-Utqlu Xfer(QC): 6 Car Transfer (QC): 6 Does the Patient Walk: Yes Gait (FIM): 6 Distance: 300' Walk 10 feet (QC): 6 Walk 10ft-Uneven Surface(QC): 6 Walk 50ft with 2 Turns (QC): 6 Walk 150 ft (QC): 6 Gait Level of Assist: 6 Gait Assistive Device: FWW Stairs (FIM): 5 # of Steps: 12 1 Step (curb) (QC): 4 4 Steps (QC): 4 12 Steps (QC): 4 Stairs Level Of Assist: 5 PT Plan Problem List Problem List: Activity Tolerance, Functional Strength, Safety, Balance, Gait, Transfer Treatment/Plan Treatment Plan: Continue Plan of Care Treatment Plan: Bed Mobility, Education, Functional Activity Juan J, Functional Strength, Group Therapy, Gait, Safety, Therapeutic Exercise, Transfers Treatment Duration: Dec 02, 2017 Frequency: At least 5 of 7 days/Wk (IRF) Estimated Hrs Per Day: 1.5 hours per day Patient and/or Family Agrees t: Yes Safety Risks/Education Patient Education: Gait Training, Transfer Techniques, Correct Positioning, Safety Issues Teaching Recipient: Patient Teaching Methods: Discussion Response to Teaching: Verbalize Understanding Time/GCodes Time In: 1300 Time Out: 1320 Total Billed Treatment Time: 20 Total Billed Treatment 1, FA (20m) G Codes Necessary: BRANDIE Byers PTA Nov 15, 2017 15:20
[2017-11-15] MEDS: warFARin 5 MG (COUMADIN) TAB PO SCH (17:31)
[2017-11-15 17:39] VITALS: BP 88/55
--- NOTE | 2017-11-15 20:07 | Progress Note (SOAP) ---
Subjective Date Seen by a Provider: Nov 15, 2017 Time Seen by a Provider: 12:50 Subjective/Events-last exam Fwup right femur fracture, atrial fibrillation, edema, mitral valve replacement , post-op anemia, hypothyroidism. Groggy after restoril last pm but slept well. Urinating frequently since lasix given this AM. Objective Exam Vital Signs Date Time Temp Pulse Resp B/P (MAP) Pulse Ox O2 Delivery O2 Flow Rate FiO2 11/15/17 17:39 99.0 75 16 88/55 (66) 98 Room Air 11/15/17 09:04 Room Air 11/15/17 08:14 92 111/53 (72) 11/15/17 05:17 98.1 90 16 104/66 (79) 95 Room Air 11/14/17 21:00 Room Air I & O 11/15/17 07:00 Intake Total 1300 ml Balance 1300 ml Capillary Refill : General Appearance: No Apparent Distress Neck: Supple Respiratory: Lungs Clear Cardiovascular: Systolic Murmur, Gallop/S4, Irregularly Irregular Gastrointestinal: normal bowel sounds, non tender, soft Extremity: Non Tender, No Calf Tenderness, Pedal Edema Neurologic/Psychiatric: Alert, Oriented x3 Skin: Warm/Dry (right hip dressing in place) Results Lab Laboratory Tests 11/15/17 05:20: White Blood Count 10.7, Red Blood Count 3.06L, Hemoglobin 10.5#L, Hematocrit 32L , Mean Corpuscular Volume 106H, Mean Corpuscular Hemoglobin 34, Mean Corpuscular Hemoglobin Concent 32, Red Cell Distribution Width 14.6H, Platelet Count 390, Mean Platelet Volume 8.9, Neutrophils (%) (Auto) 75, Lymphocytes (%) (Auto) 16, Monocytes (%) (Auto) 8, Eosinophils (%) (Auto) 1, Basophils (%) (Auto ) 0, Neutrophils # (Auto) 8.0H, Lymphocytes # (Auto) 1.7, Monocytes # (Auto) 0.9 , Eosinophils # (Auto) 0.1, Basophils # (Auto) 0.0, Prothrombin Time 23.6H, INR Comment 2.1H, Smear Scan YES 11/15/17 08:35: Urine Color YELLOW, Urine Clarity CLEAR, Urine pH 6, Urine Specific [place] 1.015L, Urine Protein NEGATIVE, Urine Glucose (UA) NEGATIVE, Urine Ketones NEGATIVE, Urine Nitrite NEGATIVE, Urine Bilirubin NEGATIVE, Urine Urobilinogen NORMAL, Urine Leukocyte Esterase 1+H, Urine RBC (Auto) NEGATIVE, Urine RBC NONE , Urine WBC 0-2, Urine Squamous Epithelial Cells 2-5, Urine Crystals NONE, Urine Bacteria TRACE, Urine Casts NONE, Urine Mucus NEGATIVE, Urine Culture Indicated NO Assessment/Plan Assessment/Plan Assess & Plan/Chief Complaint 1. Acute right femoral neck fracture--S/P ORIF, pain control/PT/OT 2. Paroxysmal Atrial Fibrillation/History of mitral valve replacement-- increase coumadin to get INR to 2.5-3.5 3. Post-op Anemia--Hgb up 10.5 4. Edema--restarted lasix this AM, BEATRIZ hose during day, AM Chem 7 5. Hypothyroidism--home dose restarted 6. Hypotension--will decrease metoprolol dose to 75mg Clinical Quality Measures DVT/VTE Risk/Contraindication: Risk Factor Score Per Nursin RFS Level Per Nursing on Admit: 4+=Very High PRIYA ALVES DO Nov 15, 2017 20:07
[2017-11-15] MEDS: ATORVASTATIN 20 MG (LIPITOR) TABLET PO SCH (21:58)
[2017-11-15] MEDS: FAMOTIDINE 20 MG (PEPCID) TABLET PO SCH (21:58)
[2017-11-15] MEDS: TEMAZEPAM 7.5 MG CAP (RESTORIL) PO PRN (21:59)
[2017-11-16 06:00] VITALS: BP 106/67
[2017-11-16] MEDS: ASCORBIC ACID (VIT C) 500 MG TABLET PO SCH (06:25)
[2017-11-16] MEDS: KCL 20 MEQ TAB (K-DUR) PO SCH ×2 (06:25→16:08)
[2017-11-16] MEDS: LEVOTHYROXINE 75 MCG (LEVOTHROID) TABLET PO SCH (06:25)
[2017-11-16 06:57] LABS: INR 2.4 (0.8-1.4); PROTHROMBIN TIME PATIENT 26.2 SEC (12.2-14.7)
[2017-11-16 07:06] LABS: CREATININE SERUM 0.95 MG/DL (0.60-1.30); POTASSIUM 4.3 MMOL/L (3.6-5.0)
--- NOTE | 2017-11-16 08:27 | PM & R (SOAP) Progress Note ---
Subjective This was a face to face visit with the patient. Date Seen by Provider: Nov 16, 2017 Time Seen by Provider: 07:45 Subjective/Events-last exam Patient was seen in her room this AM Patient Min assist for transfers Sleeping better with Temazepam.INR therapeutic Date Identified: Nov 16, 2017 Time Identified: 07:30 Medication Intervention: Meds for insomnia and Anticoagulation Review of Systems Musculoskeletal: leg pain Objective Physician Exam Last Set of Vital Signs Vital Signs Date Time Temp Pulse Resp B/P (MAP) Pulse Ox O2 Delivery O2 Flow Rate FiO2 11/16/17 06:00 98.2 84 15 106/67 (80) 99 Room Air Capillary Refill : I&O Intake and Output 11/16/17 00:00 Intake Total 1270 ml Output Total 1000 ml Balance 270 ml Intake Oral 1270 ml Output Urine Total 1000 ml # Voids 3 # Bowel Movements 5 General: Alert, Oriented X3, Cooperative, No Acute Distress HEENT: Atraumatic, PERRLA Neck: Supple, No JVD Lungs: Clear to Auscultation Heart: Regular Rate Abdomen: Normal Bowel Sounds, Soft, No Tenderness Extremities: Other (Trace edema rt ankle) Skin: Other (Incision site healing well) Neuro: Other (Good strength other than rt hip with limitations due to tenderness and pain as well as guarding) Results Lab Data Laboratory Tests 11/14/17 06:00: Prothrombin Time 25.8H, INR Comment 2.3H 11/15/17 05:20: Prothrombin Time 23.6H, INR Comment 2.1H, White Blood Count 10.7, Red Blood Count 3.06L, Hemoglobin 10.5#L, Hematocrit 32L, Mean Corpuscular Volume 106H, Mean Corpuscular Hemoglobin 34, Mean Corpuscular Hemoglobin Concent 32, Red Cell Distribution Width 14.6H, Platelet Count 390, Mean Platelet Volume 8.9, Neutrophils (%) (Auto) 75, Lymphocytes (%) (Auto) 16, Monocytes (%) (Auto) 8, Eosinophils (%) (Auto) 1, Basophils (%) (Auto) 0, Neutrophils # (Auto) 8.0H, Lymphocytes # (Auto) 1.7, Monocytes # (Auto) 0.9, Eosinophils # (Auto) 0.1, Basophils # (Auto) 0.0, Smear Scan YES 11/15/17 08:35: Urine Color YELLOW, Urine Clarity CLEAR, Urine pH 6, Urine Specific [place] 1.015L, Urine Protein NEGATIVE, Urine Glucose (UA) NEGATIVE, Urine Ketones NEGATIVE, Urine Nitrite NEGATIVE, Urine Bilirubin NEGATIVE, Urine Urobilinogen NORMAL, Urine Leukocyte Esterase 1+H, Urine RBC (Auto) NEGATIVE, Urine RBC NONE , Urine WBC 0-2, Urine Squamous Epithelial Cells 2-5, Urine Crystals NONE, Urine Bacteria TRACE, Urine Casts NONE, Urine Mucus NEGATIVE, Urine Culture Indicated NO 11/16/17 06:20: Prothrombin Time 26.2H, INR Comment 2.4H, Sodium Level 137, Potassium Level 4.3 , Chloride Level 104, Carbon Dioxide Level 24, Anion Gap 9, Blood Urea Nitrogen 20H, Creatinine 0.95, Estimat Glomerular Filtration Rate 58, BUN/Creatinine Ratio 21, Glucose Level 94, Calcium Level 9.0 Assessment/Plan Assessment and Plan Impacted mildly displaced fracture of rt fem neck s/p THR OSH due to fall at home MVR chronically anticoagulated INR therapeutic Insomnia improved with med Edema improving with Diuretic Postop anemia improving Chronic A FIB DVT prophylaxis on Coumadin Plan Continue PT/OT F/U with Cardiology and PCP Team Conference later today-See report for full functional update and POC and ELOs DR Rangel covering my service 10-8 thru 10-10. Co-Morbidities that are continuing to impact the rehab process: (include details ) KISHAN LANTIGUA MD Nov 16, 2017 08:27
[2017-11-16] MEDS: MAGNESIUM OXIDE (MAG-OX)400 MG TAB PO SCH (09:29)
[2017-11-16] MEDS: DOCUSATE SODIUM 100 MG (COLACE) CAP PO SCH ×2 (09:29→20:50)
[2017-11-16] MEDS: VITAMIN D3 1,000 UNITS (CHOLECALCIFEROL) TABLET PO SCH (09:29)
[2017-11-16] MEDS: FUROSEMIDE 40 MG (LASIX) TAB PO SCH (09:29)
[2017-11-16 09:30] VITALS: BP 95/57
--- NOTE | 2017-11-16 09:41 | Physical Therapy Daily Note ---
PT Daily Note-Current Subjective Pt reclined in recliner upon arrival. Pt agrees to PT. Pain Numeric Pain Scale: 5-Moderate Pain Location: Right, Incisional Location Body Site: Hip Pain Description: Ache Mental Status Patient Orientation: Person, Place, Time, Situation Transfers Functional [place] Measure 0=Not Assessed/NA 4=Minimal Assistance 1=Total Assistance 5=Supervision or Setup 2=Maximal Assistance 6=Modified [place] 3=Moderate Assistance 7=Complete IndependenceIRFPAI Quality Coding Scale 6 Independent with activity with or without an assistive device 5 Patient requires set up or clean up by helper. Patient completes activity by themselves 4 Supervision or touching assist (CGA). [place] provide cues , steadying assist 3 The helper provides less than half the effort to complete the activity 2 The helper provides more than half the effort to complete the activity 1 Dependent. The helper does all the effort to complete an activity 7 Patient refused to complete or attempt activity 9 The patient did not perform the activity before the current illness or injury 88 Not attempted due to Medical conditions or safety concerns Scootin Sit to/from Stand: 5 Sit to Stand (QC): 5 Weight Bearing Right Lower Extremity: Right Weight Bearing/Tolerated Left Lower Extremity: Left Full Weight Bearing Gait Training Does the Patient Walk?: Yes Distance (FIM): 3=150 ft Distance: 200' Walk 10 feet (QC): 5 Walk 50 ft with 2 Turns(QC): 5 Walk 150 ft (QC): 5 Gait Level of Assist: 5 Gait Persons Needed: 1 Gait Assistive Device: FWW Pt is walking with more normalized gait & speed this morning. PTS still focusing on proper heel strike technique and taking some pressure off UE with increasing WBing through LE. Wheelchair Training Does the Pt Use a Wheelchair?: No Exercises Seated Therapy Exercises: Ankle pumps, Long arc quads, Hip flexion, Kicking activity Seated Reps: 20 Treatments Pt informs ROOM SERVICE RUNNER about changing dose of Sleep Aid so not as drowsy this morning. Pt also wanted to discuss step up of pt's home to check if anything would need rearranged to accommodate for FWW. At this time, pt's home setup will stay the same. Pt transfers from recliner & uses restroom. Pt ambulates in hallway then rest in Therapy Gym. Pt completes Seated Ex in chair before returning to room to rest in recliner. Pt has all needs met including repositioned in chair. Assessment Current Status: Good Progress Pt is improving with strength & activity tolerance to normalize ambulation and Ex. PT Short Term Goals Short Term Goals Time Frame: Nov 18, 2017 Gait (FIM): 5 Gait Distance Comment: 200' Gait Level of Assist: 5 Gait Assistive Device: FWW PT Lawn And Garden Technician Goals Lawn And Garden Technician Goals PT Correction Goals Time Frame: Dec 02, 2017 Transfers (B,C,W/C) (FIM): 7 Sit to Lying (QC): 6 Lying-Sitting on Side/Bed(QC): 6 Sit to Stand (QC): 6 Rollin Roll Left to Right (QC): 6 Chair/Rgb-gj-Fcirz Xfer(QC): 6 Car Transfer (QC): 6 Does the Patient Walk: Yes Gait (FIM): 6 Distance: 300' Walk 10 feet (QC): 6 Walk 10ft-Uneven Surface(QC): 6 Walk 50ft with 2 Turns (QC): 6 Walk 150 ft (QC): 6 Gait Level of Assist: 6 Gait Assistive Device: FWW Stairs (FIM): 5 # of Steps: 12 1 Step (curb) (QC): 4 4 Steps (QC): 4 12 Steps (QC): 4 Stairs Level Of Assist: 5 PT Plan Problem List Problem List: Activity Tolerance, Functional Strength, Safety, Gait Treatment/Plan Treatment Plan: Continue Plan of Care Treatment Plan: Bed Mobility, Education, Functional Activity Juan J, Functional Strength, Group Therapy, Gait, Safety, Therapeutic Exercise, Transfers Treatment Duration: Dec 02, 2017 Frequency: At least 5 of 7 days/Wk (IRF) Estimated Hrs Per Day: 1.5 hours per day Patient and/or Family Agrees t: Yes Safety Risks/Education Patient Education: Gait Training, Transfer Techniques, Correct Positioning, Safety Issues Teaching Recipient: Patient Teaching Methods: Discussion Response to Teaching: Verbalize Understanding Time/GCodes Time In: 815 Time Out: 915 Total Billed Treatment Time: 60 Total Billed Treatment 1, FA x2 (30m), GT (15m) & EX (15m) G Codes Necessary: BRANDIE Byers ROOM SERVICE RUNNER Nov 16, 2017 09:41
[2017-11-16] MEDS: meTOproloL SUCCINATE 50 MG (TOPROL XL) TAB PO SCH (11:08)
--- NOTE | 2017-11-16 11:20 | Occupational Ther Daily Note ---
OT Current Status-Daily Note Subjective Pt seen in room, up in recliner, agreeable to OT. No pain mentioned. Appearance Alert, cooperative Mental Status/Objective Functional [employer] Measure 0=Not Assessed/NA 4=Minimal Assistance 1=Total Assistance 5=Supervision or Setup 2=Maximal Assistance 6=Modified [employer] 3=Moderate Assistance 7=Complete [employer] ADL-Treatment Pt got up from recliner with SBA, FWW, still struggling just a little at midpoint. Walked SBA, FWW to bathroom and got on/off BSC over toilet with SBA, FWW. Managed clothing and hygiene with SBA. Walked to shower and transferred to shower chair with SBA, FWW, grab bars. Pt very careful and cautious with any transfers. Pt washed and dried all parts with mod I, including turning water on and retrieving towel. used grab bars, hand held shower, long handled sponge. Transferred from shower with SBA and walked to sit EOB with SBA, FWW. A few minutes gentle retrograde massage to R foot to mobilize edema on top of foot and around ankle before applying TEDs, Pt dressed upper and lower body with setup, SBA, using dressing stick and sock aid, with occasional skilled cues. Pt walked SBA, FWW to recliner and was left up in chair, legs elevated, all needs met. Functional [employer] Measure 0=Not Assessed/NA 4=Minimal Assistance 1=Total Assistance 5=Supervision or Setup 2=Maximal Assistance 6=Modified [employer] 3=Moderate Assistance 7=Complete IndependenceIRFPAI Quality Coding Scale 6 Independent with activity with or without an assistive device 5 Patient requires set up or clean up by helper. Patient completes activity by themselves 4 Supervision or touching assist (CGA). [place] provide cues , steadying assist 3 The helper provides less than half the effort to complete the activity 2 The helper provides more than half the effort to complete the activity 1 Dependent. The helper does all the effort to complete an activity 7 Patient refused to complete or attempt activity 9 The patient did not perform the activity before the current illness or injury 88 Not attempted due to Medical conditions or safety concerns Bathing (FIM): 6 (Washed and dried all parts, using shower chair, grab bars, hand held shower, long handled sponge. Turned water on/off and retrieved towels) Upper Body (FIM): 5 (setup ) Lower Body Dressing (FIM): 5 (setup, SBA. used dressing stick and sock aid. FWW. Setup for donning TEDs) Toileting (FIM): 5 (SBA, BSC over toilet, grab bar, FWW) Toilet/Commode Transfer (FIM): 5 (SBA, BSC over toilet, grab bar, FWW) Shower Transfer(FIM): 5 (SBA, shower chair, grab bar, FWW) Education OT Patient Education: Modified ADL techniques, Purpose of tx/functional activities, Transfer techniques, Use of adapted equipment Teaching Recipient: Patient Teaching Methods: Discussion Response to Teaching: Verbalize Understanding OT Short Term Goals Short Term Goals Time Frame: Nov 18, 2017 Lower Body Dressing(FIM): 5 Toileting(FIM): 5 Toilet/Commode Transfer(FIM): 5 Shower Transfer(FIM): 5 Additional Short Term Goals: 1-Demonstrate ADL Tasks, 2-Verbalize Understanding , 3-ImproveStrength/Juan J 1=Demonstrate adherence to instructed precautions during ADL tasks. 2=Patient will verbalize/demonstrate understanding of assistive devices/ modifications for ADL. 3=Patient will improve strength/tolerance for activity to enable patient to perform ADL's. OT Usp Goals Usp Goals Time Frame: Dec 02, 2017 Eating (FIM): 7 Eating (QC): 6 Groomin Oral Hygiene (QC): 6 Bathing(FIM): 6 Shower/Bathe Self (QC): 6 Upper Body Dressing(FIM): 6 Upper Body Dressing (QC): 6 Lower Body Dressing(FIM): 6 Lower Body Dressing (QC): 6 On/Off Footwear (QC): 6 Toileting(FIM): 6 Toileting Hygiene (QC): 6 Toilet/Commode Transfer(FIM): 6 Toilet/Commode Transfer (QC): 6 Shower Transfer(FIM): 6 Additional Goals: 1-Demonstrate ADL Tasks, 2-Verbalize Understanding, 3- ImproveStrength/Juan J 1=Demonstrate adherence to instructed precautions during ADL tasks. 2=Patient will verbalize/demonstrate understanding of assistive devices/ modifications for ADL. 3=Patient will improve strength/tolerance for activity to enable patient to perform ADL's. OT Education/Plan Problem List/Assessment Pt would benefit from skilled OT to increase her independence in basic self care Discharge Recommendations Plan/Recommendations: Continue POC Treatment Plan/Plan of Care Patient would benefit from OT for education, treatment and training to promote independence in ADL's, mobility, safety and/or upper extremity function for ADL' s. Plan of Care: ADL Retraining, Functional Mobility, Group Exercise/Act as Ind ( education, exercise, act tolerance, funct mobility, socialization), UE Funct Exercise/Act, UE Neuromus Re-Ed/Coord, OTHER (low vision education as applicable ) Treatment Duration: Dec 02, 2017 Frequency: At least 5 of 7 days/Wk (IRF) Estimated Hrs Per Day: 1.5 hours per day Agreement: Yes Rehab Potential: Good Time/GCodes Start Time: 10:35 Stop Time: 10:50 Total Time Billed (hr/min): 75 Billed Treatment Time visit, 75 minutes ADL KASH UDMAS OT Nov 16, 2017 11:20
--- NOTE | 2017-11-16 12:10 | Physical Therapy Daily Note ---
PT Daily Note-Current Subjective Pt sitting in recliner upon arrival. Pt agrees to PT. Pain Numeric Pain Scale: 3 Location: Right, Incisional Location Body Site: Hip Pain Description: Ache, Tightness Mental Status Patient Orientation: Person, Place, Time, Situation Transfers Functional [place] Measure 0=Not Assessed/NA 4=Minimal Assistance 1=Total Assistance 5=Supervision or Setup 2=Maximal Assistance 6=Modified [place] 3=Moderate Assistance 7=Complete IndependenceIRFPAI Quality Coding Scale 6 Independent with activity with or without an assistive device 5 Patient requires set up or clean up by helper. Patient completes activity by themselves 4 Supervision or touching assist (CGA). [place] provide cues , steadying assist 3 The helper provides less than half the effort to complete the activity 2 The helper provides more than half the effort to complete the activity 1 Dependent. The helper does all the effort to complete an activity 7 Patient refused to complete or attempt activity 9 The patient did not perform the activity before the current illness or injury 88 Not attempted due to Medical conditions or safety concerns Weight Bearing Right Lower Extremity: Right Weight Bearing/Tolerated Left Lower Extremity: Left Full Weight Bearing Exercises Supine Ex: Ankle pumps, Quad Set, Glut sets, Heel Slides, Straight leg raise, Hip abd/add Supine Reps: 15 Seated Therapy Exercises: Ankle pumps, Long arc quads, Hip flexion, Kicking activity Seated Reps: 15 Treatments Pt completes Supine & Seated Ex in recliner. CHILD CARE ASSISTANT & pt discuss pt walking with staff & sp after PT leaves during afternoon/evening. Assessment Current Status: Good Progress Pt completes Ex well but reports some achy discomfort with movement. Pt moves slowly with all tasks but is improving. PT Short Term Goals Short Term Goals Time Frame: Nov 18, 2017 Gait (FIM): 5 Gait Distance Comment: 200' Gait Level of Assist: 5 Gait Assistive Device: FWW PT [facility]ci Goals Size Changer Goals PT [facility]ci Goals Time Frame: Dec 02, 2017 Transfers (B,C,W/C) (FIM): 7 Sit to Lying (QC): 6 Lying-Sitting on Side/Bed(QC): 6 Sit to Stand (QC): 6 Rollin Roll Left to Right (QC): 6 Chair/Meb-qg-Ertfe Xfer(QC): 6 Car Transfer (QC): 6 Does the Patient Walk: Yes Gait (FIM): 6 Distance: 300' Walk 10 feet (QC): 6 Walk 10ft-Uneven Surface(QC): 6 Walk 50ft with 2 Turns (QC): 6 Walk 150 ft (QC): 6 Gait Level of Assist: 6 Gait Assistive Device: FWW Stairs (FIM): 5 # of Steps: 12 1 Step (curb) (QC): 4 4 Steps (QC): 4 12 Steps (QC): 4 Stairs Level Of Assist: 5 PT Plan Problem List Problem List: Activity Tolerance, Functional Strength, Gait Treatment/Plan Treatment Plan: Continue Plan of Care Treatment Plan: Bed Mobility, Education, Functional Activity Juan J, Functional Strength, Group Therapy, Gait, Safety, Therapeutic Exercise, Transfers Treatment Duration: Dec 02, 2017 Frequency: At least 5 of 7 days/Wk (IRF) Estimated Hrs Per Day: 1.5 hours per day Patient and/or Family Agrees t: Yes Safety Risks/Education Patient Education: Gait Training, Transfer Techniques, Correct Positioning, Safety Issues Teaching Recipient: Patient Teaching Methods: Discussion Response to Teaching: Verbalize Understanding Time/GCodes Time In: 1130 Time Out: 1200 Total Billed Treatment Time: 30 Total Billed Treatment 1, Ex (20m) & FA (10m) G Codes Necessary: BRANDIE Byers CHILD CARE ASSISTANT Nov 16, 2017 12:10
--- NOTE | 2017-11-16 14:07 | Occupational Ther Daily Note ---
OT Current Status-Daily Note Subjective Pt seen in room, up in recliner, agreeable to OT. No pain reported. Appearance Alert, cooperative Mental Status/Objective Functional [place] Measure 0=Not Assessed/NA 4=Minimal Assistance 1=Total Assistance 5=Supervision or Setup 2=Maximal Assistance 6=Modified [place] 3=Moderate Assistance 7=Complete [place] ADL-Treatment Pt education use of elastic shoe laces in shoes, use of long handled shoe horn, use of dressing stick - to put on shoes. She had more difficulty with R shoe due to edema in foot. Also more difficult due to low vision. Pt reported that it felt good to have her shoes on! Pt left up in recliner, all needs met. Functional [place] Measure 0=Not Assessed/NA 4=Minimal Assistance 1=Total Assistance 5=Supervision or Setup 2=Maximal Assistance 6=Modified [place] 3=Moderate Assistance 7=Complete IndependenceIRFPAI Quality Coding Scale 6 Independent with activity with or without an assistive device 5 Patient requires set up or clean up by helper. Patient completes activity by themselves 4 Supervision or touching assist (CGA). [place] provide cues , steadying assist 3 The helper provides less than half the effort to complete the activity 2 The helper provides more than half the effort to complete the activity 1 Dependent. The helper does all the effort to complete an activity 7 Patient refused to complete or attempt activity 9 The patient did not perform the activity before the current illness or injury 88 Not attempted due to Medical conditions or safety concerns Education OT Patient Education: Modified ADL techniques, Purpose of tx/functional activities, Use of adapted equipment Teaching Recipient: Patient Teaching Methods: Demonstration, Discussion Response to Teaching: Verbalize Understanding, Return Demonstration, Reinforcement Needed OT Short Term Goals Short Term Goals Time Frame: Nov 18, 2017 Lower Body Dressing(FIM): 5 Toileting(FIM): 5 Toilet/Commode Transfer(FIM): 5 Shower Transfer(FIM): 5 Additional Short Term Goals: 1-Demonstrate ADL Tasks, 2-Verbalize Understanding , 3-ImproveStrength/Juan J 1=Demonstrate adherence to instructed precautions during ADL tasks. 2=Patient will verbalize/demonstrate understanding of assistive devices/ modifications for ADL. 3=Patient will improve strength/tolerance for activity to enable patient to perform ADL's. OT Inside Solar Sales Consultant Goals Fpc Goals Time Frame: Dec 02, 2017 Eating (FIM): 7 Eating (QC): 6 Groomin Oral Hygiene (QC): 6 Bathing(FIM): 6 Shower/Bathe Self (QC): 6 Upper Body Dressing(FIM): 6 Upper Body Dressing (QC): 6 Lower Body Dressing(FIM): 6 Lower Body Dressing (QC): 6 On/Off Footwear (QC): 6 Toileting(FIM): 6 Toileting Hygiene (QC): 6 Toilet/Commode Transfer(FIM): 6 Toilet/Commode Transfer (QC): 6 Shower Transfer(FIM): 6 Additional Goals: 1-Demonstrate ADL Tasks, 2-Verbalize Understanding, 3- ImproveStrength/Juan J 1=Demonstrate adherence to instructed precautions during ADL tasks. 2=Patient will verbalize/demonstrate understanding of assistive devices/ modifications for ADL. 3=Patient will improve strength/tolerance for activity to enable patient to perform ADL's. OT Education/Plan Problem List/Assessment Pt would benefit from skilled OT to increase her independence in basic self care Discharge Recommendations Plan/Recommendations: Continue POC Treatment Plan/Plan of Care Patient would benefit from OT for education, treatment and training to promote independence in ADL's, mobility, safety and/or upper extremity function for ADL' s. Plan of Care: ADL Retraining, Functional Mobility, Group Exercise/Act as Ind ( education, exercise, act tolerance, funct mobility, socialization), UE Funct Exercise/Act, UE Neuromus Re-Ed/Coord, OTHER (low vision education as applicable ) Treatment Duration: Dec 02, 2017 Frequency: At least 5 of 7 days/Wk (IRF) Estimated Hrs Per Day: 1.5 hours per day Agreement: Yes Rehab Potential: Good Time/GCodes Start Time: 13:38 Stop Time: 13:58 Total Time Billed (hr/min): 20 Billed Treatment Time visit, 20 minutes ADL KASH DUMAS OT Nov 16, 2017 14:07
[2017-11-16 17:30] VITALS: BP 96/64
[2017-11-16] MEDS: warFARin 5 MG (COUMADIN) TAB PO SCH (18:07)
[2017-11-16] MEDS: ATORVASTATIN 20 MG (LIPITOR) TABLET PO SCH (20:51)
[2017-11-16] MEDS: FAMOTIDINE 20 MG (PEPCID) TABLET PO SCH (20:51)
[2017-11-16] MEDS: TEMAZEPAM 7.5 MG CAP (RESTORIL) PO PRN (20:55)
[2017-11-17] MEDS: ACETAMINOPHEN 325 MG TABLET PO PRN ×2 (04:08→21:51)
[2017-11-17 05:17] VITALS: BP 103/68
[2017-11-17 06:00] LABS: INR 2.4 (0.8-1.4); PROTHROMBIN TIME PATIENT 26.4 SEC (12.2-14.7)
[2017-11-17] MEDS: ASCORBIC ACID (VIT C) 500 MG TABLET PO SCH (06:08)
[2017-11-17] MEDS: LEVOTHYROXINE 75 MCG (LEVOTHROID) TABLET PO SCH (06:08)
[2017-11-17] MEDS: KCL 20 MEQ TAB (K-DUR) PO SCH ×2 (06:08→17:58)
--- NOTE | 2017-11-17 08:34 | Progress Note (SOAP) ---
Subjective Date Seen by a Provider: Nov 16, 2017 Time Seen by a Provider: 12:40 Subjective/Events-last exam Fwup right femur fracture, atrial fibrillation, edema, mitral valve replacement , post-op anemia, hypothyroidism. BP lower so toprol dose decreased. Swelling better. Did better with lower dose of restoril--not as groggy. Objective Exam Vital Signs Date Time Temp Pulse Resp B/P (MAP) Pulse Ox O2 Delivery O2 Flow Rate FiO2 11/17/17 05:17 98.0 79 16 103/68 (80) 98 Room Air 11/16/17 21:00 Room Air 11/16/17 17:30 99.1 79 18 96/64 (75) 94 Room Air 11/16/17 09:30 67 95/57 (70) 11/16/17 09:00 Room Air I & O 11/17/17 07:00 Intake Total 1450 ml Output Total 1200 ml Balance 250 ml Capillary Refill : General Appearance: No Apparent Distress Neck: Supple Respiratory: Lungs Clear Cardiovascular: Systolic Murmur, Gallop/S4, Irregularly Irregular Gastrointestinal: normal bowel sounds, non tender, soft Extremity: Non Tender, No Calf Tenderness, Inflammation (improving), Pedal Edema Neurologic/Psychiatric: Alert, Oriented x3 Results Lab Laboratory Tests 11/17/17 05:40: Prothrombin Time 26.4H, INR Comment 2.4H Assessment/Plan Assessment/Plan Assess & Plan/Chief Complaint 1. Acute right femoral neck fracture--S/P ORIF, pain control/PT/OT 2. Paroxysmal Atrial Fibrillation/History of mitral valve replacement-- continue increased dose of coumadin to get INR to 2.5-3.5 3. Post-op Anemia--Hgb up 10.5 4. Edema--decrease lasix dose tomorrow to 20mg, BEATRIZ hose during day 5. Hypothyroidism--home dose restarted 6. Hypotension--continue decreased metoprolol dose to 75mg Clinical Quality Measures DVT/VTE Risk/Contraindication: Risk Factor Score Per Nursin RFS Level Per Nursing on Admit: 4+=Very High PRIYA ALVES DO Nov 17, 2017 08:34
[2017-11-17] MEDS: meTOproloL SUCCINATE 50 MG (TOPROL XL) TAB PO SCH (09:53)
[2017-11-17] MEDS: FUROSEMIDE 20 MG (LASIX) TAB PO SCH (09:53)
[2017-11-17] MEDS: VITAMIN D3 1,000 UNITS (CHOLECALCIFEROL) TABLET PO SCH (09:53)
[2017-11-17] MEDS: DOCUSATE SODIUM 100 MG (COLACE) CAP PO SCH ×2 (09:53→20:09)
[2017-11-17] MEDS: MAGNESIUM OXIDE (MAG-OX)400 MG TAB PO SCH (09:53)
--- NOTE | 2017-11-17 11:26 | Physical Therapy Daily Note ---
PT Daily Note-Current Subjective Pt sitting in recliner upon arrival. Pt agrees to PT. Pain Numeric Pain Scale: 3 Location: Right Location Body Site: Hip Pain Description: Ache, Tightness Mental Status Patient Orientation: Person, Place, Time, Situation Transfers Functional [place] Measure 0=Not Assessed/NA 4=Minimal Assistance 1=Total Assistance 5=Supervision or Setup 2=Maximal Assistance 6=Modified [place] 3=Moderate Assistance 7=Complete IndependenceIRFPAI Quality Coding Scale 6 Independent with activity with or without an assistive device 5 Patient requires set up or clean up by helper. Patient completes activity by themselves 4 Supervision or touching assist (CGA). [place] provide cues , steadying assist 3 The helper provides less than half the effort to complete the activity 2 The helper provides more than half the effort to complete the activity 1 Dependent. The helper does all the effort to complete an activity 7 Patient refused to complete or attempt activity 9 The patient did not perform the activity before the current illness or injury 88 Not attempted due to Medical conditions or safety concerns Scootin Supine to/from Sit: 5 Sit to/from Stand: 5 Sit to Lying (QC): 5 Sit to Stand (QC): 5 Weight Bearing Right Lower Extremity: Right Weight Bearing/Tolerated Left Lower Extremity: Left Full Weight Bearing Gait Training Does the Patient Walk?: Yes Distance (FIM): 3=150 ft Distance: 250' Walk 10 feet (QC): 5 Walk 50 ft with 2 Turns(QC): 5 Walk 150 ft (QC): 5 Gait Level of Assist: 5 Gait Persons Needed: 1 Gait Assistive Device: FWW Pt walks with a slower than normal gait pattern but it is improving. Pt focuses on heel strike and standing taller w/in FWW. PRODUCTION CONTROL EXPERT raises pt's FWW. Wheelchair Training Does the Pt Use a Wheelchair?: No Exercises Standing: Hip Abduction, Hamstring curls, Heel/toe raises, 3 way Ex=Flex, Abd, Ext, Marching, Sit to Stand, Weight shifts Standing Reps: 20 NuStep Minutes: 15 NuStep Workload: 5 Treatments Pt uses restroom before leaving room for tx. Pt transfers from recliner using FWW at A. PRODUCTION CONTROL EXPERT raises FWW up for pt to allow for taller standing w/in FWW. Pt ambulates in hallway before completing Standing EX at //bars with a couple rest breaks. Pt needs hamstrings stretched before using NuStep for 15m at WL 2. Pt again uses restroom. Pt returns to room to rest at end of tx with all needs met. Assessment Current Status: Good Progress Pt continues to gain strength and speed with tasks although this is still a work in progress. PT Short Term Goals Short Term Goals Time Frame: Nov 18, 2017 Gait (FIM): 5 Gait Distance Comment: 200' Gait Level of Assist: 5 Gait Assistive Device: FWW PT Residential Goals Associate Professor Of Chemistry Goals PT Residential Goals Time Frame: Dec 02, 2017 Transfers (B,C,W/C) (FIM): 7 Sit to Lying (QC): 6 Lying-Sitting on Side/Bed(QC): 6 Sit to Stand (QC): 6 Rollin Roll Left to Right (QC): 6 Chair/Iyu-br-Gqyau Xfer(QC): 6 Car Transfer (QC): 6 Does the Patient Walk: Yes Gait (FIM): 6 Distance: 300' Walk 10 feet (QC): 6 Walk 10ft-Uneven Surface(QC): 6 Walk 50ft with 2 Turns (QC): 6 Walk 150 ft (QC): 6 Gait Level of Assist: 6 Gait Assistive Device: FWW Stairs (FIM): 5 # of Steps: 12 1 Step (curb) (QC): 4 4 Steps (QC): 4 12 Steps (QC): 4 Stairs Level Of Assist: 5 PT Plan Problem List Problem List: Activity Tolerance, Functional Strength, Safety, Gait Treatment/Plan Treatment Plan: Continue Plan of Care Treatment Plan: Bed Mobility, Education, Functional Activity Juan J, Functional Strength, Group Therapy, Gait, Safety, Therapeutic Exercise, Transfers Treatment Duration: Dec 02, 2017 Frequency: At least 5 of 7 days/Wk (IRF) Estimated Hrs Per Day: 1.5 hours per day Patient and/or Family Agrees t: Yes Safety Risks/Education Patient Education: Gait Training, Transfer Techniques, Correct Positioning, Safety Issues Teaching Recipient: Patient Teaching Methods: Discussion Response to Teaching: Verbalize Understanding Time/GCodes Time In: 815 Time Out: 945 Total Billed Treatment Time: 90 Total Billed Treatment 1, GT x2 (30m), FA x2 (30m) & EX x2 (30m) G Codes Necessary: BRANDIE Byers PRODUCTION CONTROL EXPERT Nov 17, 2017 11:26
--- NOTE | 2017-11-17 11:54 | Occupational Ther Daily Note ---
OT Current Status-Daily Note Subjective Pt seen in room, up in recliner, agreeable to OT. No pain mentioned Appearance Alert, cooperative Mental Status/Objective Functional [place] Measure 0=Not Assessed/NA 4=Minimal Assistance 1=Total Assistance 5=Supervision or Setup 2=Maximal Assistance 6=Modified [place] 3=Moderate Assistance 7=Complete [place] ADL-Treatment Pt's present during tx. Education on gentle retrograde massage to R foot and lower leg, return demonstration by (to decrease edema in r foot prior to putting on TEDs). Also taught him how to put on BEATRIZ hose using modified technique, with return demo. Pt also practiced donning shoes with elastic shoe laces, using long shoe horn. Just needed help to pull tongue of shoe up. Pt got up from recliner with SBA (still struggles a little at midpoint) , walked to bathroom with SBA, FWW (cues for foot placement during turns, to follow hip precautions). She got on/off BSC over toilet with mod I, FWW and managed clothing and hygiene mod I. Also discussed equipment needs with who will look at [facility] for BSC to put over toilet, shower chair, dressing stick, lockstitch machine operator, long shoe horn. Functional [place] Measure 0=Not Assessed/NA 4=Minimal Assistance 1=Total Assistance 5=Supervision or Setup 2=Maximal Assistance 6=Modified [place] 3=Moderate Assistance 7=Complete IndependenceIRFPAI Quality Coding Scale 6 Independent with activity with or without an assistive device 5 Patient requires set up or clean up by helper. Patient completes activity by themselves 4 Supervision or touching assist (CGA). [place] provide cues , steadying assist 3 The helper provides less than half the effort to complete the activity 2 The helper provides more than half the effort to complete the activity 1 Dependent. The helper does all the effort to complete an activity 7 Patient refused to complete or attempt activity 9 The patient did not perform the activity before the current illness or injury 88 Not attempted due to Medical conditions or safety concerns Toileting (FIM): 6 (BSC over toilet, grab bars, FWW) Toilet/Commode Transfer (FIM): 6 (Mod I, BSC over toilet, FWW, grab bar) Other Treatment Pt walked at steady pace to gym and got into chair without help. Pt did 15 minutes bilat UE exercise on arm bike set at 25W resistance, taking one brief recovery period. COmpleted 2 sets arc activity with short extension and one set with medium extension, all with 1# weight on each arm. Also completed nuts/ bolts activity with weights. To strengthen arms to help with sit to stand and mobility. Pt walked back to her room with SBA, FWW and got into recliner without assistance but occasional cues for foot placement when turning. All needs met. Education OT Patient Education: Instructions to caregiver, Modified ADL techniques, Progress toward Goal/Update tx plan, Purpose of tx/functional activities, Safety issues, Transfer techniques Teaching Recipient: Patient Teaching Methods: Discussion Response to Teaching: Verbalize Understanding, Return Demonstration, Reinforcement Needed OT Short Term Goals Short Term Goals Time Frame: Nov 18, 2017 Lower Body Dressing(FIM): 5 Toileting(FIM): 5 Toilet/Commode Transfer(FIM): 5 Shower Transfer(FIM): 5 Additional Short Term Goals: 1-Demonstrate ADL Tasks, 2-Verbalize Understanding , 3-ImproveStrength/Juan J 1=Demonstrate adherence to instructed precautions during ADL tasks. 2=Patient will verbalize/demonstrate understanding of assistive devices/ modifications for ADL. 3=Patient will improve strength/tolerance for activity to enable patient to perform ADL's. OT Custodial Goals Machinist Apprentice Goals Time Frame: Dec 02, 2017 Eating (FIM): 7 Eating (QC): 6 Groomin Oral Hygiene (QC): 6 Bathing(FIM): 6 Shower/Bathe Self (QC): 6 Upper Body Dressing(FIM): 6 Upper Body Dressing (QC): 6 Lower Body Dressing(FIM): 6 Lower Body Dressing (QC): 6 On/Off Footwear (QC): 6 Toileting(FIM): 6 Toileting Hygiene (QC): 6 Toilet/Commode Transfer(FIM): 6 Toilet/Commode Transfer (QC): 6 Shower Transfer(FIM): 6 Additional Goals: 1-Demonstrate ADL Tasks, 2-Verbalize Understanding, 3- ImproveStrength/Juan J 1=Demonstrate adherence to instructed precautions during ADL tasks. 2=Patient will verbalize/demonstrate understanding of assistive devices/ modifications for ADL. 3=Patient will improve strength/tolerance for activity to enable patient to perform ADL's. OT Education/Plan Problem List/Assessment Pt would benefit from skilled OT to increase her independence in basic self care Discharge Recommendations Plan/Recommendations: Continue POC Treatment Plan/Plan of Care Patient would benefit from OT for education, treatment and training to promote independence in ADL's, mobility, safety and/or upper extremity function for ADL' s. Plan of Care: ADL Retraining, Functional Mobility, Group Exercise/Act as Ind ( education, exercise, act tolerance, funct mobility, socialization), UE Funct Exercise/Act, UE Neuromus Re-Ed/Coord, OTHER (low vision education as applicable ) Treatment Duration: Dec 02, 2017 Frequency: At least 5 of 7 days/Wk (IRF) Estimated Hrs Per Day: 1.5 hours per day Agreement: Yes Rehab Potential: Good Time/GCodes Start Time: 10:00 Stop Time: 11:35 Total Time Billed (hr/min): 95 Billed Treatment Time visit, 40 minutes ADL, 55 minutes exercise (10-1040 ADL, 9884-5864 Exercise ) KASH DUMAS OT Nov 17, 2017 11:54
[2017-11-17] MEDS: warFARin 5 MG (COUMADIN) TAB PO SCH (17:58)
[2017-11-17 18:00] VITALS: BP 96/42
[2017-11-17] MEDS: ATORVASTATIN 20 MG (LIPITOR) TABLET PO SCH (20:09)
[2017-11-17] MEDS: FAMOTIDINE 20 MG (PEPCID) TABLET PO SCH (20:09)
[2017-11-18 05:05] VITALS: BP 107/66
[2017-11-18] MEDS: KCL 20 MEQ TAB (K-DUR) PO SCH ×2 (06:29→17:03)
[2017-11-18] MEDS: ASCORBIC ACID (VIT C) 500 MG TABLET PO SCH (06:29)
[2017-11-18] MEDS: LEVOTHYROXINE 75 MCG (LEVOTHROID) TABLET PO SCH (06:29)
[2017-11-18 06:47] LABS: PROTHROMBIN TIME PATIENT 31.7 SEC (12.2-14.7)
[2017-11-18] MEDS: meTOproloL SUCCINATE 50 MG (TOPROL XL) TAB PO SCH (08:08)
[2017-11-18] MEDS: VITAMIN D3 1,000 UNITS (CHOLECALCIFEROL) TABLET PO SCH (08:08)
[2017-11-18] MEDS: FUROSEMIDE 20 MG (LASIX) TAB PO SCH (08:08)
[2017-11-18] MEDS: MAGNESIUM OXIDE (MAG-OX)400 MG TAB PO SCH (08:08)
[2017-11-18] MEDS: DOCUSATE SODIUM 100 MG (COLACE) CAP PO SCH ×2 (08:09→21:14)
--- NOTE | 2017-11-18 08:50 | Progress Note (SOAP) ---
Subjective Date Seen by a Provider: Nov 17, 2017 Time Seen by a Provider: 08:30 Subjective/Events-last exam Fwup right femur fracture, atrial fibrillation, edema, mitral valve replacement , post-op anemia, hypothyroidism. Swelling much better. Up ambulating with PT. Objective Exam Vital Signs Date Time Temp Pulse Resp B/P (MAP) Pulse Ox O2 Delivery O2 Flow Rate FiO2 11/18/17 05:05 98.0 75 16 107/66 (80) 97 Room Air 11/17/17 21:03 Room Air 11/17/17 18:00 98.0 78 16 96/42 (60) 100 Room Air 11/17/17 09:00 Room Air I & O 11/18/17 07:00 Intake Total 1460 ml Balance 1460 ml Capillary Refill : General Appearance: No Apparent Distress Neck: Supple Respiratory: Lungs Clear Cardiovascular: Regular Rate, Rhythm, Systolic Murmur, Gallop/S4 Gastrointestinal: normal bowel sounds, non tender, soft Extremity: Non Tender, No Calf Tenderness, Pedal Edema (much ) Neurologic/Psychiatric: Alert, Oriented x3 Skin: Warm/Dry Results Lab Laboratory Tests 11/18/17 06:20: Prothrombin Time 31.7H, INR Comment 3.0H Assessment/Plan Assessment/Plan Assess & Plan/Chief Complaint 1. Acute right femoral neck fracture--S/P ORIF, pain control/PT/OT 2. Paroxysmal Atrial Fibrillation/History of mitral valve replacement-- continue increased dose of coumadin to get INR to 2.5-3.5 3. Post-op Anemia--Hgb up 10.5 4. Edema--improved, decrease lasix doseto 20mg today, BEATRIZ esparza during day 5. Hypothyroidism--home dose restarted 6. Hypotension--continue decreased metoprolol dose to 75mg Clinical Quality Measures DVT/VTE Risk/Contraindication: Risk Factor Score Per Nursin RFS Level Per Nursing on Admit: 4+=Very High PRIYA ALVES DO Nov 18, 2017 08:50
--- NOTE | 2017-11-18 08:52 | Progress Note (SOAP) ---
Subjective Date Seen by a Provider: Nov 18, 2017 Time Seen by a Provider: 08:51 Subjective/Events-last exam Fwup right femur fracture, atrial fibrillation, edema, mitral valve replacement , post-op anemia, hypothyroidism. Swelling much improved. Pain well controlled. INR up to 3.0. Objective Exam Vital Signs Date Time Temp Pulse Resp B/P (MAP) Pulse Ox O2 Delivery O2 Flow Rate FiO2 11/18/17 05:05 98.0 75 16 107/66 (80) 97 Room Air 11/17/17 21:03 Room Air 11/17/17 18:00 98.0 78 16 96/42 (60) 100 Room Air 11/17/17 09:00 Room Air I & O 11/18/17 07:00 Intake Total 1460 ml Balance 1460 ml Capillary Refill : General Appearance: No Apparent Distress Neck: Supple Respiratory: Lungs Clear Cardiovascular: Regular Rate, Rhythm Gastrointestinal: normal bowel sounds, non tender, soft Extremity: Non Tender, No Calf Tenderness, No Pedal Edema Neurologic/Psychiatric: Alert, Oriented x3 Results Lab Laboratory Tests 11/18/17 06:20: Prothrombin Time 31.7H, INR Comment 3.0H Assessment/Plan Assessment/Plan Assess & Plan/Chief Complaint 1. Acute right femoral neck fracture--S/P ORIF, pain control/PT/OT 2. Paroxysmal Atrial Fibrillation/History of mitral valve replacement-- decrease coumadin dose to 4mg po daily and monitor PT/INR 3. Post-op Anemia--Hgb up 10.5 4. Edema--improved, continue lasix at 20mg po daily, BEATRIZ hose during day 5. Hypothyroidism--home dose restarted 6. Hypotension--continue decreased metoprolol dose to 75mg Clinical Quality Measures DVT/VTE Risk/Contraindication: Risk Factor Score Per Nursin RFS Level Per Nursing on Admit: 4+=Very High PRIYA ALVES DO Nov 18, 2017 08:52
[2017-11-18] MEDS: ACETAMINOPHEN 325 MG TABLET PO PRN ×2 (10:12→18:38)
--- NOTE | 2017-11-18 10:47 | Occupational Ther Daily Note ---
OT Current Status-Daily Note Subjective Pt seen in room, up in recliner, agreeable to OT. No pain mentioned. Appearance Alert, cooperative Mental Status/Objective Functional [place] Measure 0=Not Assessed/NA 4=Minimal Assistance 1=Total Assistance 5=Supervision or Setup 2=Maximal Assistance 6=Modified [place] 3=Moderate Assistance 7=Complete [place] ADL-Treatment Pt got up from recliner with just a little pause midpoint in standing. Walked to bathroom and into shower with SBA, FWW. Skilled cues when walking throughout tx re: foot placement to avoid internal rotation R hip. On/off shower chair without help. Washed and dried all parts, turned water on/off and retrieved towels from bar. Shower chair, grab bars, hand held shower, long handled sponge. Walked, FWW to [facility] [place] to dress, using dressing stick (on/off mod I). Pt educ transporting clothing on front of walker. Walked with FWW to recliner. Gentle retrograde massage briefly done R LE to help mobilize edema prior to donning BEATRIZ hose. Pt was able to put shoes on, using elastic shoe laces and long handled shoe horn. Pt reported she feels confident about discharge to home next Tuesday. Pt completed 15 reps bilat UE exercise with red theraband to strengthen arms to help with transfers, with brief review at start. Occasional cues to complete them correctly. Pt left up in recliner, all needs met. Functional [place] Measure 0=Not Assessed/NA 4=Minimal Assistance 1=Total Assistance 5=Supervision or Setup 2=Maximal Assistance 6=Modified [place] 3=Moderate Assistance 7=Complete IndependenceIRFPAI Quality Coding Scale 6 Independent with activity with or without an assistive device 5 Patient requires set up or clean up by helper. Patient completes activity by themselves 4 Supervision or touching assist (CGA). [place] provide cues , steadying assist 3 The helper provides less than half the effort to complete the activity 2 The helper provides more than half the effort to complete the activity 1 Dependent. The helper does all the effort to complete an activity 7 Patient refused to complete or attempt activity 9 The patient did not perform the activity before the current illness or injury 88 Not attempted due to Medical conditions or safety concerns Bathing (FIM): 6 (Mod I, using shower chair, grab bars, hand held shower, long handled sponge. Turned water on/off and retrieved towel.) Upper Body (FIM): 5 (Doffed/donned with setup) Lower Body Dressing (FIM): 5 (Setup to put TEDs on. Doffed/donned pants usings dressing stick, shoes with supervisor rides and long handled shoe horn. FWW) Toilet/Commode Transfer (FIM): 6 (On/off BSC over toilet, grab bars, FWW) Shower Transfer(FIM): 5 (SBA, shower chair, grab bars, FWW) Education OT Patient Education: Exercise program, Modified ADL techniques, Progress toward Goal/Update tx plan, Purpose of tx/functional activities, Transfer techniques Teaching Recipient: Patient Teaching Methods: Demonstration, Discussion Response to Teaching: Verbalize Understanding, Return Demonstration, Reinforcement Needed OT Short Term Goals Short Term Goals Time Frame: Nov 18, 2017 Lower Body Dressing(FIM): 5 Toileting(FIM): 5 Toilet/Commode Transfer(FIM): 5 Shower Transfer(FIM): 5 Additional Short Term Goals: 1-Demonstrate ADL Tasks, 2-Verbalize Understanding , 3-ImproveStrength/Juan J 1=Demonstrate adherence to instructed precautions during ADL tasks. 2=Patient will verbalize/demonstrate understanding of assistive devices/ modifications for ADL. 3=Patient will improve strength/tolerance for activity to enable patient to perform ADL's. OT Fdc Goals Fdc Goals Time Frame: Dec 02, 2017 Eating (FIM): 7 Eating (QC): 6 Groomin Oral Hygiene (QC): 6 Bathing(FIM): 6 Shower/Bathe Self (QC): 6 Upper Body Dressing(FIM): 6 Upper Body Dressing (QC): 6 Lower Body Dressing(FIM): 6 Lower Body Dressing (QC): 6 On/Off Footwear (QC): 6 Toileting(FIM): 6 Toileting Hygiene (QC): 6 Toilet/Commode Transfer(FIM): 6 Toilet/Commode Transfer (QC): 6 Shower Transfer(FIM): 6 Additional Goals: 1-Demonstrate ADL Tasks, 2-Verbalize Understanding, 3- ImproveStrength/Juan J 1=Demonstrate adherence to instructed precautions during ADL tasks. 2=Patient will verbalize/demonstrate understanding of assistive devices/ modifications for ADL. 3=Patient will improve strength/tolerance for activity to enable patient to perform ADL's. OT Education/Plan Problem List/Assessment Pt would benefit from skilled OT to increase her independence in basic self care Discharge Recommendations Plan/Recommendations: Continue POC (anticipate DC on Tuesday) Treatment Plan/Plan of Care Patient would benefit from OT for education, treatment and training to promote independence in ADL's, mobility, safety and/or upper extremity function for ADL' s. Plan of Care: ADL Retraining, Functional Mobility, Group Exercise/Act as Ind ( education, exercise, act tolerance, funct mobility, socialization), UE Funct Exercise/Act, UE Neuromus Re-Ed/Coord, OTHER (low vision education as applicable ) Treatment Duration: Dec 02, 2017 Frequency: At least 5 of 7 days/Wk (IRF) Estimated Hrs Per Day: 1.5 hours per day Agreement: Yes Rehab Potential: Good Time/GCodes Start Time: 08:30 Stop Time: 09:35 Total Time Billed (hr/min): 65 Billed Treatment Time visit, 50 minutes ADL, 15 minutes exercise KASH DUMAS OT Nov 18, 2017 10:46
--- NOTE | 2017-11-18 12:02 | Physical Therapy Daily Note ---
PT Daily Note-Current Subjective Pt. agrees to Rx, happy and feels she is making good progress Pain Numeric Pain Scale: 0-No Pain Mental Status Patient Orientation: Normal For Age Transfers Functional [place] Measure 0=Not Assessed/NA 4=Minimal Assistance 1=Total Assistance 5=Supervision or Setup 2=Maximal Assistance 6=Modified [place] 3=Moderate Assistance 7=Complete IndependenceIRFPAI Quality Coding Scale 6 Independent with activity with or without an assistive device 5 Patient requires set up or clean up by helper. Patient completes activity by themselves 4 Supervision or touching assist (CGA). [place] provide cues , steadying assist 3 The helper provides less than half the effort to complete the activity 2 The helper provides more than half the effort to complete the activity 1 Dependent. The helper does all the effort to complete an activity 7 Patient refused to complete or attempt activity 9 The patient did not perform the activity before the current illness or injury 88 Not attempted due to Medical conditions or safety concerns Transfers (B, C, W/C) (FIM): 6 Scootin Rollin Supine to/from Sit: 6 Sit to/from Stand: 6 Bed to/from Chair: 6 Weight Bearing Right Lower Extremity: Right Weight Bearing/Tolerated Left Lower Extremity: Left Full Weight Bearing Gait Training Does the Patient Walk?: Yes Gait (FIM): 6 Distance (FIM): 3=150 ft (175x2) Gait Level of Assist: 6 Gait Persons Needed: 0 Gait Assistive Device: FWW worked on equal step length and fluid gait pattern Stair Training Stair Training: Handrails/: 2 handrails Stairs (FIM): 5 #of Steps: 4 Stairs: Pattern: Step to Level of Assist: 5 household assist Exercises Supine Ex: Ankle pumps, Quad Set, Glut sets, Heel Slides, Short Arc Quads, Scooting, Straight leg raise (assist), Hip abd/add Supine Reps: 15 Standing: Hip Abduction, Hamstring curls, Heel/toe raises, Marching, Mini squats Standing Reps: 10 NuStep Minutes: 12 NuStep Workload: 4 Assessment Current Status: Good Progress PT Short Term Goals Short Term Goals Time Frame: Nov 18, 2017 Gait (FIM): 5 Gait Distance Comment: 200' Gait Level of Assist: 5 Gait Assistive Device: FWW PT Fpc Goals [place]ung[place] Tender Goals PT [place] Tender Goals Time Frame: Dec 02, 2017 Transfers (B,C,W/C) (FIM): 7 Sit to Lying (QC): 6 Lying-Sitting on Side/Bed(QC): 6 Sit to Stand (QC): 6 Rollin Roll Left to Right (QC): 6 Chair/Rxa-ba-Garzw Xfer(QC): 6 Car Transfer (QC): 6 Does the Patient Walk: Yes Gait (FIM): 6 Distance: 300' Walk 10 feet (QC): 6 Walk 10ft-Uneven Surface(QC): 6 Walk 50ft with 2 Turns (QC): 6 Walk 150 ft (QC): 6 Gait Level of Assist: 6 Gait Assistive Device: FWW Stairs (FIM): 5 # of Steps: 12 1 Step (curb) (QC): 4 4 Steps (QC): 4 12 Steps (QC): 4 Stairs Level Of Assist: 5 PT Plan Treatment/Plan Treatment Plan: Continue Plan of Care Treatment Plan: Bed Mobility, Education, Functional Activity Juan J, Functional Strength, Group Therapy, Gait, Safety, Therapeutic Exercise, Transfers Treatment Duration: Dec 02, 2017 Frequency: At least 5 of 7 days/Wk (IRF) Estimated Hrs Per Day: 1.5 hours per day Patient and/or Family Agrees t: Yes Safety Risks/Education Patient Education: Gait Training, Transfer Techniques, Steps, Correct Positioning, Disease Process, Safety Issues Teaching Recipient: Patient Teaching Methods: Demonstration, Discussion Response to Teaching: Verbalize Understanding, Return Demonstration, Reinforcement Needed Time/GCodes Time In: 1000 Time Out: 1100 Total Billed Treatment Time: 60 Total Billed Treatment 1,[id number] G Codes Necessary: JEAN CARLOS Soria PTA Nov 18, 2017 12:02
--- NOTE | 2017-11-18 14:11 | Physical Therapy Daily Note ---
PT Daily Note-Current Subjective Patient agrees to PT. No c/o. Pain Numeric Pain Scale: 0-No Pain Location: No Pain Reported Mental Status Patient Orientation: Normal For Age Transfers Functional [place] Measure 0=Not Assessed/NA 4=Minimal Assistance 1=Total Assistance 5=Supervision or Setup 2=Maximal Assistance 6=Modified [place] 3=Moderate Assistance 7=Complete IndependenceIRFPAI Quality Coding Scale 6 Independent with activity with or without an assistive device 5 Patient requires set up or clean up by helper. Patient completes activity by themselves 4 Supervision or touching assist (CGA). [place] provide cues , steadying assist 3 The helper provides less than half the effort to complete the activity 2 The helper provides more than half the effort to complete the activity 1 Dependent. The helper does all the effort to complete an activity 7 Patient refused to complete or attempt activity 9 The patient did not perform the activity before the current illness or injury 88 Not attempted due to Medical conditions or safety concerns Transfers (B, C, W/C) (FIM): 6 Scootin Sit to/from Stand: 6 Sit to Stand (QC): 6 Weight Bearing Right Lower Extremity: Right Weight Bearing/Tolerated Left Lower Extremity: Left Full Weight Bearing Gait Training Does the Patient Walk?: Yes Gait (FIM): 6 Distance: 200' x 2 Walk 10 feet (QC): 6 Walk 50 ft with 2 Turns(QC): 6 Walk 150 ft (QC): 6 Gait Level of Assist: 6 Gait Assistive Device: FWW very slow, steady gait sequence Stair Training Stair Training: Handrails/: 2 handrails Stairs (FIM): 2 #of Steps: 5 1 Step (curb) (QC): 5 4 Steps (QC): 5 Stairs: Pattern: Step to Level of Assist: 5 Exercises Standing: Heel/toe raises, 3 way Ex=Flex, Abd, Ext Standing Reps: 20 (bilaterally) Assessment Patient highly motivated with progress and reports she will dismiss to home next week. PT Short Term Goals Short Term Goals Time Frame: Nov 18, 2017 Gait (FIM): 5 Gait Distance Comment: 200' Gait Level of Assist: 5 Gait Assistive Device: FWW PT Retirement Goals Freelance Displayer Goals PT Retirement Goals Time Frame: Dec 02, 2017 Transfers (B,C,W/C) (FIM): 7 Sit to Lying (QC): 6 Lying-Sitting on Side/Bed(QC): 6 Sit to Stand (QC): 6 Rollin Roll Left to Right (QC): 6 Chair/Aix-na-Zvbsu Xfer(QC): 6 Car Transfer (QC): 6 Does the Patient Walk: Yes Gait (FIM): 6 Distance: 300' Walk 10 feet (QC): 6 Walk 10ft-Uneven Surface(QC): 6 Walk 50ft with 2 Turns (QC): 6 Walk 150 ft (QC): 6 Gait Level of Assist: 6 Gait Assistive Device: FWW Stairs (FIM): 5 # of Steps: 12 1 Step (curb) (QC): 4 4 Steps (QC): 4 12 Steps (QC): 4 Stairs Level Of Assist: 5 PT Plan Treatment/Plan Treatment Plan: Continue Plan of Care Treatment Plan: Bed Mobility, Education, Functional Activity Juan J, Functional Strength, Group Therapy, Gait, Safety, Therapeutic Exercise, Transfers Treatment Duration: Dec 02, 2017 Frequency: At least 5 of 7 days/Wk (IRF) Estimated Hrs Per Day: 1.5 hours per day Patient and/or Family Agrees t: Yes Time/GCodes Time In: 1335 Time Out: 1405 Total Billed Treatment Time: 30 Total Billed Treatment 1 visit EX 16 min GT 14 min GALILEO CURRY PT Nov 18, 2017 14:11
--- NOTE | 2017-11-18 14:24 | Therapy Group Daily Note ---
Therapy Daily Group Note Patient Education Topic Energy Cons Other/Notes Pt was an active participant in OT group, contributing to discussion and education on techniques to conserve energy during daily activities. She shared some techniques that she has used to manage her energy and verbalized understanding of additional ideas. She was provided with written information for home. Care transferred to PT. Start Time: 13:00 Stop Time: 13:30 Total Billed Treatment Time: 30 Total Billed Treatment visit, group 30 minutes KASH DUMAS OT Nov 18, 2017 14:24
[2017-11-18 16:01] VITALS: BP 97/61
[2017-11-18] MEDS ORDERED: warFARin 2 MG (COUMADIN) TAB PO SCH (18:00)
[2017-11-18] MEDS: FAMOTIDINE 20 MG (PEPCID) TABLET PO SCH (21:14)
[2017-11-18] MEDS: ATORVASTATIN 20 MG (LIPITOR) TABLET PO SCH (21:14)
[2017-11-18] MEDS: TEMAZEPAM 7.5 MG CAP (RESTORIL) PO PRN (21:14)
[2017-11-19 05:27] VITALS: BP 98/61
[2017-11-19 06:14] LABS: INR 3.7 (0.8-1.4); PROTHROMBIN TIME PATIENT 36.7 SEC (12.2-14.7)
[2017-11-19] MEDS: ASCORBIC ACID (VIT C) 500 MG TABLET PO SCH (06:49)
[2017-11-19] MEDS: KCL 20 MEQ TAB (K-DUR) PO SCH ×2 (06:49→17:05)
[2017-11-19] MEDS: LEVOTHYROXINE 75 MCG (LEVOTHROID) TABLET PO SCH (06:49)
[2017-11-19] MEDS: MAGNESIUM OXIDE (MAG-OX)400 MG TAB PO SCH (09:38)
[2017-11-19] MEDS: VITAMIN D3 1,000 UNITS (CHOLECALCIFEROL) TABLET PO SCH (09:38)
[2017-11-19] MEDS: FUROSEMIDE 20 MG (LASIX) TAB PO SCH (09:38)
[2017-11-19] MEDS: DOCUSATE SODIUM 100 MG (COLACE) CAP PO SCH ×2 (09:38→20:47)
[2017-11-19 09:40] VITALS: BP 110/72
[2017-11-19] MEDS: meTOproloL SUCCINATE 50 MG (TOPROL XL) TAB PO SCH (09:45)
--- NOTE | 2017-11-19 10:15 | Physical Therapy Daily Note ---
PT Daily Note-Current Subjective Patient in recliner pre tx, agrees to PT, no complaints of pain but states she has some tightness in right hip. Appearance Patient in recliner post tx with nurse call, phone, tray, all needs met. Mental Status Patient Orientation: Normal For Age Transfers Functional [place] Measure 0=Not Assessed/NA 4=Minimal Assistance 1=Total Assistance 5=Supervision or Setup 2=Maximal Assistance 6=Modified [place] 3=Moderate Assistance 7=Complete IndependenceIRFPAI Quality Coding Scale 6 Independent with activity with or without an assistive device 5 Patient requires set up or clean up by helper. Patient completes activity by themselves 4 Supervision or touching assist (CGA). [place] provide cues , steadying assist 3 The helper provides less than half the effort to complete the activity 2 The helper provides more than half the effort to complete the activity 1 Dependent. The helper does all the effort to complete an activity 7 Patient refused to complete or attempt activity 9 The patient did not perform the activity before the current illness or injury 88 Not attempted due to Medical conditions or safety concerns Transfers (B, C, W/C) (FIM): 6 Scootin Rollin Roll Left to Right (QC): 6 Supine to/from Sit: 6 Sit to/from Stand: 6 Sit to Lying (QC): 6 Sit to Stand (QC): 6 Chair/Vdi-jy-Xljnp Xfer(QC): 6 Bed to/from Chair: 6 Car Transfer (QC): 6 Weight Bearing Right Lower Extremity: Right Weight Bearing/Tolerated Left Lower Extremity: Left Full Weight Bearing Gait Training Gait (FIM): 6 Distance: 150', 250' Walk 10 feet (QC): 6 Walk 50 ft with 2 Turns(QC): 6 Walk 150 ft (QC): 6 Walking 10ft/uneven surface-QC: 6 Gait Assistive Device: FWW Slow ambulation but steady. Wheelchair Training Does the Pt Use a Wheelchair?: No Stair Training Stair Training: Handrails/: 2 handrails Stairs (FIM): 5 #of Steps: 4 1 Step (curb) (QC): 4 4 Steps (QC): 4 Stairs: Pattern: Step to Level of Assist: 5 Exercises NuStep Minutes: 10 NuStep Workload: 5 Treatments bed mobility and transfers, ambulation, functional strengthening, stair training Assessment Current Status: Fair Progress good improvement in general mobility during her stay PT Short Term Goals Short Term Goals Time Frame: Nov 18, 2017 Gait (FIM): 5 Gait Distance Comment: 200' Gait Level of Assist: 5 Gait Assistive Device: FWW PT Fire Lieutenant Goals Mcfp Goals PT Fire Lieutenant Goals Time Frame: Dec 02, 2017 Transfers (B,C,W/C) (FIM): 7 Sit to Lying (QC): 6 Lying-Sitting on Side/Bed(QC): 6 Sit to Stand (QC): 6 Rollin Roll Left to Right (QC): 6 Chair/Jbu-ce-Wnkjt Xfer(QC): 6 Car Transfer (QC): 6 Does the Patient Walk: Yes Gait (FIM): 6 Distance: 300' Walk 10 feet (QC): 6 Walk 10ft-Uneven Surface(QC): 6 Walk 50ft with 2 Turns (QC): 6 Walk 150 ft (QC): 6 Gait Level of Assist: 6 Gait Assistive Device: FWW Stairs (FIM): 5 # of Steps: 12 1 Step (curb) (QC): 4 4 Steps (QC): 4 12 Steps (QC): 4 Stairs Level Of Assist: 5 PT Plan Problem List Problem List: Activity Tolerance, Functional Strength, Safety, Balance, Gait, Transfer Treatment/Plan Treatment Plan: Continue Plan of Care Treatment Plan: Bed Mobility, Education, Functional Activity Juan J, Functional Strength, Group Therapy, Gait, Safety, Therapeutic Exercise, Transfers Treatment Duration: Dec 02, 2017 Frequency: At least 5 of 7 days/Wk (IRF) Estimated Hrs Per Day: 1.5 hours per day Patient and/or Family Agrees t: Yes Safety Risks/Education Patient Education: Gait Training, Transfer Techniques, Steps, Correct Positioning, Safety Issues Teaching Recipient: Patient Teaching Methods: Demonstration, Discussion Response to Teaching: Reinforcement Needed Time/GCodes Time In: 0936 Time Out: 1005 Total Billed Treatment Time: 29 Total Billed Treatment 1 visit GT 15' FA 14' SILVIO GONSALEZ PT Nov 19, 2017 10:15
[2017-11-19] MEDS: warFARin 3 MG (COUMADIN) TAB PO SCH (17:06)
[2017-11-19 18:12] VITALS: BP 94/66
[2017-11-19] MEDS: ATORVASTATIN 20 MG (LIPITOR) TABLET PO SCH (20:14)
[2017-11-19] MEDS: FAMOTIDINE 20 MG (PEPCID) TABLET PO SCH (20:14)
[2017-11-19] MEDS: TEMAZEPAM 7.5 MG CAP (RESTORIL) PO PRN (20:33)
[2017-11-20 05:14] VITALS: BP 110/71
[2017-11-20] MEDS: LEVOTHYROXINE 75 MCG (LEVOTHROID) TABLET PO SCH (06:14)
[2017-11-20] MEDS: ASCORBIC ACID (VIT C) 500 MG TABLET PO SCH (06:14)
[2017-11-20] MEDS: KCL 20 MEQ TAB (K-DUR) PO SCH ×2 (06:15→16:58)
[2017-11-20 06:50] LABS: INR 3.4 (0.8-1.4); PROTHROMBIN TIME PATIENT 34.4 SEC (12.2-14.7)
[2017-11-20 08:48] VITALS: BP 97/64
[2017-11-20] MEDS: MAGNESIUM OXIDE (MAG-OX)400 MG TAB PO SCH (08:50)
[2017-11-20] MEDS: VITAMIN D3 1,000 UNITS (CHOLECALCIFEROL) TABLET PO SCH (08:50)
[2017-11-20] MEDS: meTOproloL SUCCINATE 50 MG (TOPROL XL) TAB PO SCH (08:50)
[2017-11-20] MEDS: FUROSEMIDE 20 MG (LASIX) TAB PO SCH (08:50)
[2017-11-20] MEDS: DOCUSATE SODIUM 100 MG (COLACE) CAP PO SCH ×2 (08:55→20:21)
[2017-11-20 17:41] VITALS: BP 90/63
[2017-11-20] MEDS: warFARin 3 MG (COUMADIN) TAB PO SCH (17:52)
[2017-11-20] MEDS: TEMAZEPAM 7.5 MG CAP (RESTORIL) PO PRN (20:21)
[2017-11-20] MEDS: ATORVASTATIN 20 MG (LIPITOR) TABLET PO SCH (20:21)
[2017-11-20] MEDS: FAMOTIDINE 20 MG (PEPCID) TABLET PO SCH (20:21)
[2017-11-21 05:03] VITALS: BP 107/61
[2017-11-21] MEDS: LEVOTHYROXINE 75 MCG (LEVOTHROID) TABLET PO SCH (05:43)
[2017-11-21] MEDS: ASCORBIC ACID (VIT C) 500 MG TABLET PO SCH (05:43)
[2017-11-21] MEDS: KCL 20 MEQ TAB (K-DUR) PO SCH (05:43)
[2017-11-21 06:21] LABS: INR 2.8 (0.8-1.4); PROTHROMBIN TIME PATIENT 29.3 SEC (12.2-14.7)
[2017-11-21 08:15] VITALS: BP 91/46
[2017-11-21] MEDS: FUROSEMIDE 20 MG (LASIX) TAB PO SCH (08:15)
[2017-11-21] MEDS: MAGNESIUM OXIDE (MAG-OX)400 MG TAB PO SCH (08:15)
[2017-11-21] MEDS: VITAMIN D3 1,000 UNITS (CHOLECALCIFEROL) TABLET PO SCH (08:15)
[2017-11-21] MEDS: DOCUSATE SODIUM 100 MG (COLACE) CAP PO SCH (08:16)
[2017-11-21 09:50] VITALS: BP 87/59
[2017-11-21] MEDS: meTOproloL SUCCINATE 50 MG (TOPROL XL) TAB PO SCH (10:20)
--- NOTE | 2017-11-21 10:41 | Occupational Ther Daily Note ---
OT Current Status-Daily Note Subjective Pt seen in room, up in recliner, agreeable to OT. No pain mentioned. Appearance Alert, cooperative Mental Status/Objective Patient Orientation: Person, Place, Time, Situation Functional [place] Measure 0=Not Assessed/NA 4=Minimal Assistance 1=Total Assistance 5=Supervision or Setup 2=Maximal Assistance 6=Modified [place] 3=Moderate Assistance 7=Complete [place] ADL-Treatment Pt reported no problems with ordering food, opening packages, cutting up food, feeding herself, getting a drink. No dentures. She got up from recliner and walked to the bathroom with FWW, following hip precautions without cues, no LOB. She toileted, showered, dressed and groomed. Most ADLs took a little longer than usual due to pt is extra careful and takes her time and also due to low vision. All questions answered to her satisfaction. Pt left up in recliner, all needs met. Functional [place] Measure 0=Not Assessed/NA 4=Minimal Assistance 1=Total Assistance 5=Supervision or Setup 2=Maximal Assistance 6=Modified [place] 3=Moderate Assistance 7=Complete IndependenceIRFPAI Quality Coding Scale 6 Independent with activity with or without an assistive device 5 Patient requires set up or clean up by helper. Patient completes activity by themselves 4 Supervision or touching assist (CGA). [place] provide cues , steadying assist 3 The helper provides less than half the effort to complete the activity 2 The helper provides more than half the effort to complete the activity 1 Dependent. The helper does all the effort to complete an activity 7 Patient refused to complete or attempt activity 9 The patient did not perform the activity before the current illness or injury 88 Not attempted due to Medical conditions or safety concerns Eating (FIM): 7 (Orders her own food, opens packages, cuts up food, feeds herself all without assistance and with normal time. No dentures) Eating (QC): 6 Grooming (FIM): 6 (Stood at sink to brush teeth and hair, FWW for balance. Washed face and hands in shower. No makeup) Oral Hygiene (QC): 6 Bathing (FIM): 6 (Washed and dried all parts, using shower chair, grab bars, hand held shower, long handled sponge. Turned water on and off and retrieved towels from bar. ) Shower/Bathe Self (QC): 6 Upper Body (FIM): 6 (Retrieved clean clothes and put dirty ones away, using FWW. Undressed and dressed without help) Upper Body Dressing (QC): 6 Lower Body Dressing (FIM): 5 (Setup to put on BEATRIZ hoes ( did it). Doffed and donned clothing without help, using dressing stick, long hose horn. Also uses sock aid. FWW for standing, mod I) Lower Body Dressing (QC): 6 (Dressing stick, long handled shoe horn, elastic shoe laces) On/Off Footwear (QC): 5 (setup to put on TEDs, mod I shoes) Toileting (FIM): 6 (Managed clothing and hygiene herself, on BSC over toilet. Grab bars, FWW) Toileting Hygiene (QC): 6 Toilet/Commode Transfer (FIM): 6 (On/off BSC over toilet (needed to be able to follow hip precautions), using grab bars FWW) Toilet Transfer (QC): 6 Shower Transfer(FIM): 6 (In/out of shower with FWW, grab bars, shower chair) Education OT Patient Education: Progress toward Goal/Update tx plan, Purpose of tx/ functional activities, Reviewed precautions Teaching Recipient: Patient Teaching Methods: Discussion Response to Teaching: Verbalize Understanding, Return Demonstration OT Short Term Goals Short Term Goals Time Frame: Nov 18, 2017 Lower Body Dressing(FIM): 5 Toileting(FIM): 5 Toilet/Commode Transfer(FIM): 5 Shower Transfer(FIM): 5 Additional Short Term Goals: 1-Demonstrate ADL Tasks, 2-Verbalize Understanding , 3-ImproveStrength/Juan J 1=Demonstrate adherence to instructed precautions during ADL tasks. 2=Patient will verbalize/demonstrate understanding of assistive devices/ modifications for ADL. 3=Patient will improve strength/tolerance for activity to enable patient to perform ADL's. OT Director Of Golf Goals Mcc Goals Time Frame: Dec 02, 2017 Eating (FIM): 7 (Met 11/21/17) Eating (QC): 6 (Met 11/21/17) Groomin (Met 11/21/17) Oral Hygiene (QC): 6 (Met 11/21/17) Bathing(FIM): 6 (Met 11/21/17) Shower/Bathe Self (QC): 6 (Met 11/21/17) Upper Body Dressing(FIM): 6 (Met 11/21/17) Upper Body Dressing (QC): 6 (Met 11/21/17) Lower Body Dressing(FIM): 6 (Not met 11/21/17 due to setup for BEATRIZ hose) Lower Body Dressing (QC): 6 (Met 11/21/17) On/Off Footwear (QC): 6 (Not met 11/21/17 due to setup for BEATRIZ hose) Toileting(FIM): 6 (Met 11/21/17) Toileting Hygiene (QC): 6 (Met 11/21/17) Toilet/Commode Transfer(FIM): 6 (Met 11/21/17) Toilet/Commode Transfer (QC): 6 (Met 11/21/17) Shower Transfer(FIM): 6 (Met 11/21/17) Additional Goals: 1-Demonstrate ADL Tasks, 2-Verbalize Understanding, 3- ImproveStrength/Juan J 1=Demonstrate adherence to instructed precautions during ADL tasks. 2=Patient will verbalize/demonstrate understanding of assistive devices/ modifications for ADL. 3=Patient will improve strength/tolerance for activity to enable patient to perform ADL's. OT Education/Plan Problem List/Assessment Pt would benefit from skilled OT to increase her independence in basic self care Discharge Recommendations Plan/Recommendations: Discharge/Goals Met (see tx plan for specifics) Treatment Plan/Plan of Care Patient would benefit from OT for education, treatment and training to promote independence in ADL's, mobility, safety and/or upper extremity function for ADL' s. Plan of Care: ADL Retraining, Functional Mobility, Group Exercise/Act as Ind ( education, exercise, act tolerance, funct mobility, socialization), UE Funct Exercise/Act, UE Neuromus Re-Ed/Coord, OTHER (low vision education as applicable ) Treatment Duration: Dec 02, 2017 Frequency: At least 5 of 7 days/Wk (IRF) Estimated Hrs Per Day: 1.5 hours per day Agreement: Yes Rehab Potential: Good Time/GCodes Start Time: 08:30 Stop Time: 09:30 Total Time Billed (hr/min): 60 Billed Treatment Time visit, 60 minutes ADL KASH DUMAS OT Nov 21, 2017 10:41
--- NOTE | 2017-11-21 10:48 | Physical Therapy Daily Note ---
PT Daily Note-Current Subjective Pt. agrees to Rx. Very anxious to go home. present Pain Numeric Pain Scale: 0-No Pain Mental Status Patient Orientation: Normal For Age Transfers Functional Barren Measure 0=Not Assessed/NA 4=Minimal Assistance 1=Total Assistance 5=Supervision or Setup 2=Maximal Assistance 6=Modified Barren 3=Moderate Assistance 7=Complete IndependenceIRFPAI Quality Coding Scale 6 Independent with activity with or without an assistive device 5 Patient requires set up or clean up by helper. Patient completes activity by themselves 4 Supervision or touching assist (CGA). [place] provide cues , steadying assist 3 The helper provides less than half the effort to complete the activity 2 The helper provides more than half the effort to complete the activity 1 Dependent. The helper does all the effort to complete an activity 7 Patient refused to complete or attempt activity 9 The patient did not perform the activity before the current illness or injury 88 Not attempted due to Medical conditions or safety concerns Transfers (B, C, W/C) (FIM): 6 Scootin Rollin Roll Left to Right (QC): 5 Supine to/from Sit: 6 Sit to/from Stand: 6 Sit to Lying (QC): 5 Sit to Stand (QC): 5 Chair/Kyb-wf-Ifjoz Xfer(QC): 5 Bed to/from Chair: 6 Car Transfer (QC): 5 Weight Bearing Right Lower Extremity: Right Weight Bearing/Tolerated Left Lower Extremity: Left Full Weight Bearing Gait Training Does the Patient Walk?: Yes Gait (FIM): 6 Distance (FIM): 3=150 ft (200x2) Walk 10 feet (QC): 5 Walk 50 ft with 2 Turns(QC): 5 Walk 150 ft (QC): 5 Walking 10ft/uneven surface-QC: 5 Gait Level of Assist: 6 Gait Persons Needed: 0 Gait Assistive Device: FWW careful safe gait observed this date Stair Training Stair Training: Handrails/: 2 handrails Stairs (FIM): 6 #of Steps: 12 1 Step (curb) (QC): 5 4 Steps (QC): 5 12 Steps (QC): 5 Stairs: Pattern: Step to Level of Assist: 6 Balance Picking up an Object (QC): 88 Exercises Supine Ex: Ankle pumps, Quad Set, Rolling, Glut sets, Heel Slides, Short Arc Quads, Scooting, Straight leg raise, Hip abd/add Supine Reps: 12 Assessment Current Status: Good Progress meets goals, has great home support PT Short Term Goals Short Term Goals Time Frame: Nov 18, 2017 Gait (FIM): 5 Gait Distance Comment: 200' Gait Level of Assist: 5 Gait Assistive Device: FWW PT Barn Worker Goals Barn Worker Goals PT Correction Goals Time Frame: Dec 02, 2017 Transfers (B,C,W/C) (FIM): 7 Sit to Lying (QC): 6 Lying-Sitting on Side/Bed(QC): 6 Sit to Stand (QC): 6 Rollin Roll Left to Right (QC): 6 Chair/Eeb-rn-Tuiyh Xfer(QC): 6 Car Transfer (QC): 6 Does the Patient Walk: Yes Gait (FIM): 6 Distance: 300' Walk 10 feet (QC): 6 Walk 10ft-Uneven Surface(QC): 6 Walk 50ft with 2 Turns (QC): 6 Walk 150 ft (QC): 6 Gait Level of Assist: 6 Gait Assistive Device: FWW Stairs (FIM): 5 # of Steps: 12 1 Step (curb) (QC): 4 4 Steps (QC): 4 12 Steps (QC): 4 Stairs Level Of Assist: 5 PT Plan Treatment/Plan Treatment Plan: Continue Plan of Care Treatment Plan: Bed Mobility, Education, Functional Activity Juan J, Functional Strength, Group Therapy, Gait, Safety, Therapeutic Exercise, Transfers Treatment Duration: Dec 02, 2017 Frequency: At least 5 of 7 days/Wk (IRF) Estimated Hrs Per Day: 1.5 hours per day Patient and/or Family Agrees t: Yes Safety Risks/Education Patient Education: Gait Training, Transfer Techniques, Steps, Disease Process, Safety Issues Teaching Recipient: Patient, Family Teaching Methods: Demonstration, Discussion Response to Teaching: Verbalize Understanding, Return Demonstration, Reinforcement Needed Time/GCodes Time In: 1005 Time Out: 1045 Total Billed Treatment Time: 40 Total Billed Treatment 1,GT15m,FA25m G Codes Necessary: JEAN CARLOS Soria RESTAURANT LINE SERVER Nov 21, 2017 10:48
--- NOTE | 2017-11-21 11:06 | Therapy Team Discharge Summary ---
Therapy Discharge Summary Discharge Recommendations Date of Discharge November 21, 2017 Therapy D/C Recommendations: Home w/ Family Support Occupational Therapy Pt was seen for skilled OT to increase her independence in basic self care to allow her to safely return home after total hip surgery, with hip precautions. On admission she was independent with eating, SBA grooming, setup upper body dressing, CGA toileting and toilet transfer, bathing, max assist lower body dressing. By discharge she had progressed to modified independent with toileting , grooming, bathing and dressing (setup for lower body dressing due to BEATRIZ hose ) and independent with eating. Equipment used included dressing stick, sock aid , sand technologist, long shoe horn, elastic shoe laces, BSC over toilet, grab bars, hand held shower, shower chair. Pt has or will have all needed equipment. Home health OT recommended. See tx plan for goals met. DC OT. Decreased Activ Tolerance, Decreased UE Strength, Dependent Transfers, Impaired Self-Care Skills, Visual-Perceptual Deficit PT Alf Goals Alf Goals PT Alf Goals Time Frame: Dec 02, 2017 Transfers (B,C,W/C) (FIM): 7 Roll Left to Right (QC): 6 Sit to Lying (QC): 6 Lying-Sitting on Side/Bed(QC): 6 Sit to Stand (QC): 6 Chair/Qav-rr-Ftefj Xfer(QC): 6 Car Transfer (QC): 6 Does the Patient Walk: Yes Gait (FIM): 6 Distance: 300' Walk 10 feet (QC): 6 Walk 10ft-Uneven Surface(QC): 6 Walk 50ft with 2 Turns (QC): 6 Walk 150 ft (QC): 6 Gait Level of Assist: 6 Gait Assistive Device: FWW Stairs (FIM): 5 # of Steps: 12 1 Step (curb) (QC): 4 4 Steps (QC): 4 12 Steps (QC): 4 Stairs Level Of Assist: 5 OT Real Estate Professor Goals Alf Goals Time Frame: Dec 02, 2017 Eating (FIM): 7 (Met 11/21/17) Eating (QC): 6 (Met 11/21/17) Oral Hygiene (QC): 6 (Met 11/21/17) Grooming(FIM): 6 (Met 11/21/17) Bathing(FIM): 6 (Met 11/21/17) Shower/Bathe Self (QC): 6 (Met 11/21/17) Upper Body Dressing(FIM): 6 (Met 11/21/17) Upper Body Dressing (QC): 6 (Met 11/21/17) Lower Body Dressing(FIM): 6 (Not met 11/21/17 due to setup for BEATRIZ hose) Lower Body Dressing (QC): 6 (Met 11/21/17) On/Off Footwear (QC): 6 (Not met 11/21/17 due to setup for BEATRIZ hose) Toileting(FIM): 6 (Met 11/21/17) Toileting Hygiene (QC): 6 (Met 11/21/17) Toilet/Commode Transfer(FIM): 6 (Met 11/21/17) Toilet/Commode Transfer (QC): 6 (Met 11/21/17) Shower Transfer(FIM): 6 (Met 11/21/17) Additional Goals: 1-Demonstrate ADL Tasks, 2-Verbalize Understanding, 3- ImproveStrength/Juan J 1=Demonstrate adherence to instructed precautions during ADL tasks. 2=Patient will verbalize/demonstrate understanding of assistive devices/ modifications for ADL. 3=Patient will improve strength/tolerance for activity to enable patient to perform ADL's. Speech Real Estate Professor Goals Real Estate Professor Goals no goals established as skilled ST not indicated. KASH DUMAS OT Nov 21, 2017 11:06
[2017-11-21] MEDS ORDERED: TEMA7.5C PO (13:09)
[2017-11-21] MEDS ORDERED: FURO20TA4 PO (13:09)
[2017-11-21] MEDS ORDERED: POTA20TA15 PO (13:09)
--- NOTE | 2017-11-21 13:11 | D/C HH Face to Face Order ---
D/C Face to Face Orders Instructions for Patient Patient Instructions/FollowUp: Fwup with me in 2 weeks Physician to follow Patient: Lula Discharge Diet for Home: Low Sodium Diet Patient Data-Allergies,Ht & Wt Patient Allergies: Coded Allergies: Sulfa (Sulfonamide Antibiotics) (Verified Allergy, Unknown, 01/08/08) meperidine (Verified Allergy, Unknown, 01/08/08) Height (Feet): 5 Height (Inches): 7.00 Weight (Pounds): 129 Weight (Ounces): 4.0 Home Health Need/Face to Face Date of Face to Face: Nov 21, 2017 Clinical Findings: Instability, Pain with ambulation, Unsteady gait I have seen Pt cazy-km-jwcl: Yes Discharged To: Home Diagnosis/Conditions: Right ORIF for femoral neck fracture Hypotension Patient is Homebound due to: Aniya fall risk due to instabilty, Muscle weakness , Pain w/ambulation Homebound Status Due to the above stated illness, injury or surgical procedure (medical condition or diagnosis) and associated clinical findings, the patient is homebound because of his/her inability to leave home except with aid of a supportive device and/or person AND leaving the home requires a considerable and taxing effort or is medically contraindicated. Pt req the following assistanc: Walker Home Health Nursing Orders Home Health Services Order: Nursing Services, Central Supply Worker-Evaluate & Treat, Physical Therapy-Evaluate & Treat Certify Stmt I certify that this patient is under my care and that I, a nurse practitioner or a physician; a commercial real estate assistant working with me, had a face to face encounter that - meets the physician face to face encounter requirements with this patient as dated. PRIYA ALVES DO Nov 21, 2017 1:11 pm
--- NOTE | 2017-11-21 13:14 | D/C HH Face to Face Order ---
D/C Face to Face Orders Instructions for Patient Patient Instructions/FollowUp: Dr. Cotton Physician to follow Patient: Dr. Cotton Discharge Diet for Home: Regular Diet Patient Data-Allergies,Ht & Wt Patient Allergies: Coded Allergies: Sulfa (Sulfonamide Antibiotics) (Verified Allergy, Unknown, 01/08/08) meperidine (Verified Allergy, Unknown, 01/08/08) Height (Feet): 5 Height (Inches): 7.00 Weight (Pounds): 129 Weight (Ounces): 4.0 Home Health Need/Face to Face Date of Face to Face: Nov 21, 2017 Clinical Findings: Generalized weakness and fatigue, Instability, Pain with ambulation, Unsteady gait I have seen Pt prvv-mk-stny: Yes Discharged To: Home Diagnosis/Conditions: Right ORIF for femoral neck fracture Hypotension Patient is Homebound due to: Aniya fall risk due to instabilty, Muscle weakness , Pain w/ambulation Homebound Status Due to the above stated illness, injury or surgical procedure (medical condition or diagnosis) and associated clinical findings, the patient is homebound because of his/her inability to leave home except with aid of a supportive device and/or person AND leaving the home requires a considerable and taxing effort or is medically contraindicated. Pt req the following assistanc: Walker Home Health Nursing Orders Home Health Services Order: Nursing Services, Speaker Mounter-Evaluate & Treat, Physical Therapy-Evaluate & Treat Therapy Orders Therapy Orders: OT (must have SN or PT order), Physical Therapy Therapy Specific Orders: Eval assistive deivces, Teach enviro modifications/ safety, Gait training, Increase strength/endurance, Restore ROM Certify Stmt I certify that this patient is under my care and that I, a nurse practitioner or a physician; a seed analysis laboratory assistant working with me, had a face to face encounter that - meets the physician face to face encounter requirements with this patient as dated. I personally scribed for KISHAN LANTIGUA MD ([facility]) on 11/21/17 at 13:14. Electronically submitted by Chelsea Cancino ([id number]). KISHAN LANTIGUA MD Nov 21, 2017 13:14
[2017-11-21 14:10] VITALS: BP 91/46
--- NOTE | 2017-11-21 23:19 | Progress Note (SOAP) ---
Subjective Date Seen by a Provider: Nov 21, 2017 Time Seen by a Provider: 13:00 Subjective/Events-last exam Fwup right femoral neck fracture, Chronic Atrial fibrillation, edema, post-op anemia. Doing well. Going home today. Objective Exam Vital Signs Date Time Temp Pulse Resp B/P (MAP) Pulse Ox O2 Delivery O2 Flow Rate FiO2 11/21/17 14:10 91 18 91/46 94 Room Air 11/21/17 09:50 79 87/59 (68) 11/21/17 08:19 Room Air 11/21/17 08:15 91 91/46 (61) 11/21/17 05:03 98.0 66 18 107/61 (76) 97 Room Air I & O 11/21/17 07:00 Intake Total 1060 ml Balance 1060 ml Capillary Refill : General Appearance: No Apparent Distress Neck: Supple Respiratory: Lungs Clear Cardiovascular: Systolic Murmur, Gallop/S4, Irregularly Irregular Extremity: Non Tender, No Calf Tenderness, No Pedal Edema Neurologic/Psychiatric: Alert, Oriented x3 Skin: Warm/Dry Results Lab Laboratory Tests 11/21/17 05:40: Prothrombin Time 29.3H, INR Comment 2.8H Assessment/Plan Assessment/Plan Assess & Plan/Chief Complaint 1. Acute right femoral neck fracture--S/P ORIF, home with home health 2. Paroxysmal Atrial Fibrillation/History of mitral valve replacement--PT/INR stable 3. Post-op Anemia--Hgb up 10.5 4. Edema--improved, continue lasix at 20mg po every other day on DC, BEATRIZ hose during day 5. Hypothyroidism--home dose restarted 6. Hypotension--resume metoprolol 100mg home dose Clinical Quality Measures DVT/VTE Risk/Contraindication: Risk Factor Score Per Nursin RFS Level Per Nursing on Admit: 4+=Very High PRIYA ALVES DO Nov 21, 2017 23:19
--- NOTE | 2017-11-22 09:01 | Therapy Team Discharge Summary ---
Therapy Discharge Summary Discharge Recommendations Date of Discharge Nov 21, 2017 at 13:50 Therapy D/C Recommendations: Home w/ Family Support Physical Therapy Pt admitted to inpatient rehab on 11/10/17 for hip fracture. Upon admission, pt performed transfers sit<->stand CGA, sit->supine Theo w/ getting RLE into bed, supine->sit Theo assistance sitting up, car transfer SBA. Pt ambulates 150' w/ CGA (including 10' over uneven surface and 50' w/ 2 turns) using FWW, gait is very slow w/ step to pattern, only a few inches in length, antalgic gait w/ decreased WB and knee flexion w/ RLE. Pt was able to ascend/descend 1 step w/ CGA using FWW. Patient has been performing bed mobility and transfer training, balance and endurance training, functional strengthening, gait training, and education. She has made good progress but has not quite met her transfer and ambulation termite control technician goals. At this time, pt is mod I with all transfers, ambulates 200' mod I (including 10' over uneven surface and 50' w/ 2 turns). Pt is able to ascend/descend 12 steps mod I w/ step-to pattern using 2 handrails. Patient was discharged from this facility and will be discharged from PT at this time. Occupational Therapy Decreased Activ Tolerance, Decreased UE Strength, Dependent Transfers, Impaired Self-Care Skills, Visual-Perceptual Deficit PT Intellectual Property Manager Goals Senior Living Goals PT Intellectual Property Manager Goals Time Frame: Dec 02, 2017 Transfers (B,C,W/C) (FIM): 7 Roll Left to Right (QC): 6 Sit to Lying (QC): 6 Lying-Sitting on Side/Bed(QC): 6 Sit to Stand (QC): 6 Chair/Scl-wp-Ioxnx Xfer(QC): 6 Car Transfer (QC): 6 Does the Patient Walk: Yes Gait (FIM): 6 Distance: 300' Walk 10 feet (QC): 6 Walk 10ft-Uneven Surface(QC): 6 Walk 50ft with 2 Turns (QC): 6 Walk 150 ft (QC): 6 Gait Level of Assist: 6 Gait Assistive Device: FWW Stairs (FIM): 5 # of Steps: 12 1 Step (curb) (QC): 4 4 Steps (QC): 4 12 Steps (QC): 4 Stairs Level Of Assist: 5 OT Senior Living Goals Intellectual Property Manager Goals Time Frame: Dec 02, 2017 Eating (FIM): 7 (Met 11/21/17) Eating (QC): 6 (Met 11/21/17) Oral Hygiene (QC): 6 (Met 11/21/17) Grooming(FIM): 6 (Met 11/21/17) Bathing(FIM): 6 (Met 11/21/17) Shower/Bathe Self (QC): 6 (Met 11/21/17) Upper Body Dressing(FIM): 6 (Met 11/21/17) Upper Body Dressing (QC): 6 (Met 11/21/17) Lower Body Dressing(FIM): 6 (Not met 11/21/17 due to setup for BEATRIZ hose) Lower Body Dressing (QC): 6 (Met 11/21/17) On/Off Footwear (QC): 6 (Not met 11/21/17 due to setup for BEATRIZ hose) Toileting(FIM): 6 (Met 11/21/17) Toileting Hygiene (QC): 6 (Met 11/21/17) Toilet/Commode Transfer(FIM): 6 (Met 11/21/17) Toilet/Commode Transfer (QC): 6 (Met 11/21/17) Shower Transfer(FIM): 6 (Met 11/21/17) Additional Goals: 1-Demonstrate ADL Tasks, 2-Verbalize Understanding, 3- ImproveStrength/Juan J 1=Demonstrate adherence to instructed precautions during ADL tasks. 2=Patient will verbalize/demonstrate understanding of assistive devices/ modifications for ADL. 3=Patient will improve strength/tolerance for activity to enable patient to perform ADL's. Speech Senior Living Goals Intellectual Property Manager Goals no goals established as skilled ST not indicated. SILVIO GONSALEZ PT Nov 22, 2017 09:01
== END 2017-11-21 13:50 | disposition home health service (06) | DRG 561 ==
PROVIDERS: ADMIT Physical Medicine & Rehabilitation; ATTEND Physical Medicine & Rehabilitation
DX: S72.001D Fracture of unspecified part of neck of right femur, subsequent encounter for closed fracture with routine healing (principal); Z96.641 Presence of right artificial hip joint; D64.9 Anemia, unspecified; I48.0 Paroxysmal atrial fibrillation; F41.9 Anxiety disorder, unspecified; E03.9 Hypothyroidism, unspecified; E78.5 Hyperlipidemia, unspecified; K59.00 Constipation, unspecified; G47.00 Insomnia, unspecified; R60.9 Edema, unspecified; I95.2 Hypotension due to drugs; Z95.1 Presence of aortocoronary bypass graft; Z79.01 Long term (current) use of anticoagulants; Z95.2 Presence of prosthetic heart valve; T44.7X5A Adverse effect of beta-adrenoreceptor antagonists, initial encounter; W19.XXXD Unspecified fall, subsequent encounter; Y92.009 Unspecified place in unspecified non-institutional (private) residence as the place of occurrence of the external cause
CPT/HCPCS: 36415; 80048; 80053; 81000; 85025; 85610

== ENCOUNTER 2018-01-19 10:05 | Outpatient (RCR) | payer MEDICARE ==
[~2018-01-19 10:05] MED LIST changes: +ASCO500T6 PO; +CALC600T80 PO; +CHOL20003 PO; +DOCU100C37 PO; +ESCI10TA55 PO; +FAMO40TA6 PO; +FURO20TA4 PO; +LEVO75TA PO; +MAGN400T39 PO; +METO-395 PO; +POTA20TA15 PO; +PRAV80TA2 PO; +TEMA7.5C PO; +WARF-48; +WARF-48 PO
== END 2018-01-19 10:41 | disposition home or self-care (01) ==
PROVIDERS: ATTEND Family Medicine
DX: S72.001D Fracture of unspecified part of neck of right femur, subsequent encounter for closed fracture with routine healing (principal); W19.XXXD Unspecified fall, subsequent encounter

== ENCOUNTER 2018-07-06 10:27 | Outpatient (RCR) | payer MEDICARE | END 2018-07-06 12:06 | disposition home or self-care (01) | PROVIDERS: ATTEND Family Medicine | DX: M25.561 Pain in right knee (principal) ==

== ENCOUNTER → 2020-09-25 | Outpatient (CLI) | payer MEDICARE ==
[~2020-09-25] MED LIST changes: +ASCO500T17 PO; -ASCO500T6 PO; +ESCI-2 PO; -ESCI10TA55 PO; -METO-395 PO; +MTP100TCR PO
--- NOTE | 2020-09-25 15:40 | Diagnostic Imaging Report ---
INDICATION: Right hip replacement 3 years ago with severe pain today and yesterday. TIME OF EXAM: 3:13 p.m. Two views of the right hip show postoperative changes of total hip arthroplasty. Prosthetic elements are in good position. No fracture or loosening is seen. IMPRESSION: Postop right hip. No acute features detected. Dictated by: Dictated on workstation # [id number]
== END ==
LOC: RAD 14:51
PROVIDERS: ATTEND Family Medicine
DX: M25.551 Pain in right hip (principal); Z96.641 Presence of right artificial hip joint; Z98.890 Other specified postprocedural states
CPT/HCPCS: 73502

== ENCOUNTER 2020-11-15 20:49 | Emergency (ER) | payer MEDICARE ==
[~2020-11-15] VITALS: Ht 172 cm; Wt 55.3 kg
--- NOTE | 2020-11-15 21:11 | ED Fall/Injury ---
General Stated Complaint: FALL/FACIAL INJ Source: patient History of Present Illness Date Seen by Provider: Nov 15, 2020 Time Seen by Provider: 20:55 Initial Comments PT ARRIVES VIA POV FROM HOME STATES AT 1630 TODAY, SHE WAS IN HER GARAGE AND TRIPPED OVER A TARP ON THE GARAGE FLOOR AND FELL, LANDING ON HER FACE HAS LACERATION TO CHIN, BRUISE AROUND MOUTH AND LEFT BROW, AND PAIN TO RIGHT > LEFT JAW ALSO C/O RIGHT KNEE PAIN AND LEFT WRIST PAIN DENIES LOSS OF CONSCIOUSNESS STATES HER NECK IS A LITTLE SORE ON THE LEFT SIDE NO RADIATION OF PAIN NO PARESTHESIAS OR MOTOR DEFICITS NO HEADACHE NO DIZZINESS NO VISION CHANGES--HAS MACULAR DEGENERATION AND WEARS GLASSES NO INTRA-ORAL INJURY C/O PAIN TO LEFT BREAST--HAD PRIOR RIGHT MASTECTOMY NO PAIN ON BREATHING, OR ACTUAL PAIN IN CHEST NO SHORTNESS OF BREATH NO ABDOMINAL PAIN NO NAUSEA/VOMITING NO BACK PAIN NO HIP PAIN--PT HAS HAD PRIOR RIGHT HIP FRACTURE AND REPLACEMENT 10/2017. PT IS ON COUMADIN FOR MITRAL VALVE REPLACEMENT PCP: DR. ALVES Allergies and Home Medications Allergies Coded Allergies: Sulfa (Sulfonamide Antibiotics) (Verified Allergy, Unknown, 01/08/08) meperidine (Verified Allergy, Unknown, 01/08/08) Patient Home Medication List Home Medication List Reviewed: Yes Calcium Carbonate (Calcium Carbonate) 600 Mg Tablet, 600 MG PO DAILY, (Reported) Entered as Reported by: AKIRA RUTHERFORD on 11/11/17 1048 Cholecalciferol (Vitamin D3) (Vitamin D3) 2,000 Unit Capsule, 2,000 UNIT PO DAILY, (Reported) Entered as Reported by: AKIRA RUTHERFORD on 11/11/17 1048 Docusate Sodium (Docusate Sodium) 100 Mg Capsule, 100 MG PO BID PRN for CONSTIPATION-1ST LINE, (Reported) Entered as Reported by: AKIRA RUTHERFORD on 11/11/17 1048 Escitalopram Oxalate (Escitalopram Oxalate) 10 Mg Tablet, 10 MG PO DAILY, (Reported) Entered as Reported by: AKIRA RUTHERFORD on 11/11/17 1048 Famotidine (Famotidine) 40 Mg Tablet, 40 MG PO HS, (Reported) Entered as Reported by: AKIRA RUTHERFORD on 11/11/17 1048 Furosemide (Furosemide) 20 Mg Tablet, 20 MG PO DAILY Prescribed by: PRIYA ALVES on 11/21/17 1309 Levothyroxine Sodium (Synthroid) 75 Mcg Tablet, 75 MCG PO DAILY, (Reported) Entered as Reported by: AKIRA RUTHERFORD on 11/11/17 1048 Magnesium Oxide (Magnesium) 400 Mg Tablet, 400 MG PO DAILY, (Reported) Entered as Reported by: AKIRA RUTHERFORD on 11/11/17 1048 Metoprolol Succinate (Metoprolol Succinate) 100 Mg Tab.er.24h, 100 MG PO DAILY, (Reported) Entered as Reported by: AKIRA RUTHERFORD on 11/11/17 1048 Potassium Chloride (Potassium Chloride) 20 Meq Tab.er.prt, 20 MEQ PO BID Prescribed by: PRIYA ALVES on 11/21/17 1309 Pravastatin Sodium (Pravastatin Sodium) 80 Mg Tablet, 80 MG PO DAILY, (Reported) Entered as Reported by: AKIRA RUTHERFORD on 11/11/17 1048 Temazepam (Temazepam) 7.5 Mg Capsule, 7.5 MG PO HS PRN for SLEEP Prescribed by: PRIYA ALVES on 11/21/17 1309 Warfarin Sodium (Warfarin Sodium) 5 Mg Tablet, PO UD, (Reported) Entered as Reported by: AKIRA RUTHERFORD on 11/11/17 1048 Review of Systems Review of Systems Constitutional: no symptoms reported; No dizziness Eyes: No Symptoms Reported Ears, Nose, Mouth, Throat: see HPI Respiratory: no symptoms reported Cardiovascular: no symptoms reported Gastrointestinal: no symptoms reported Genitourinary: no symptoms reported Musculoskeletal: see HPI Skin: see HPI Psychiatric/Neurological: No Symptoms Reported Past [place]sf[place]e-[place] Hx Patient Social History Tobacco Use?: No Substance use?: No Alcohol Use?: No Seasonal Allergies Seasonal Allergies: No Past Medical History Surgery/Hospitalization HX: MITRAL VALVE REPLACEMENT CARDIAC CATHS CABG RIGHT MASTECTOMY FOR CANCER HYSTERECTOMY COLONOSCOPIES RIGHT HIP FRACTURE AND REPLACEMENT 10/2017 Surgeries: Yes (RIGHT MASTECTOMY; CABG; MITRAL VALVE REPLACEMENT; COLONOSC OPIES) Breast, Cardiac, CABG, Hysterectomy, Joint Replacement, Orthopedic, Valve Replacement Respiratory: No Cardiac: Yes (MITRAL VALVE REPLACEMENT) Atrial Fibrillation, Coronary Artery Disease, Heart Murmur, Hypertension, Valvular Heart Disease Neurological: No Reproductive Disorders: Yes Female Reproductive Disorders: Denies 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 NO CHEMO OR RADIATION Psychosocial: Yes Anxiety Integumentary: No Blood Disorders: Yes (IPTC) Adverse Reaction/Blood Tranf: No Family Medical History Cardiovascular disease 19 FATHER Headache disorder 19 MOTHER Hypercholesterolemia 19 FATHER Myocardial infarction 19 MOTHER Osteoporosis 19 MOTHER Thyroid disease 19 MOTHER Visual disorder 19 FATHER 19 MOTHER No Family History of: Colon cancer Hypertension Physical Exam Vital Signs Capillary Refill : Height, Weight, BMI Height: 5'7.00" Weight: 129lbs. 4.0oz. [id number]; 20.1 BMI Method:Stated General Appearance: WD/WN, no apparent distress, thin, other (SMILING, TALKATIVE, VERY PLEASANT) HEENT: PERRL/EOMI, TMs normal, pharynx normal, other (BRUISING AND SWELLING TO LEFT BROW; MILD BRUISING TO UPPER LIP AREA/NASO LABIAL AREA ON LEFT; TENDERNESS TO CHIN WITH 1 CM LACERATION; RIGHT > LEFT MANDIBULAR TENDERNESS. NO INTRA-ORAL INJURY; NO SUBCONJUNCTIVAL HEMORRHAGE OR HYPHEMA. GLASSES ARE INTACT. ) Neck: tender lateral (ON LEFT), tender midline Cardiovascular: regular rate, rhythm, no murmur Respiratory: chest non-tender, normal breath sounds, no respiratory distress, no accessory muscle use, other (MILD BRUISING TO SUPERIOR ASPECT OF LEFT BREAST, BUT NO CHEST WALL/RIB TENDERNESS OR CREPITANCE OR SUB Q AIR. ) Peripheral Pulses: 2+ Dorsalis Pedis (R), 2+ Left Dors-Pedis (L), 2+ Radial Pulses (R), 2+ Radial Pulses (L) Gastrointestinal: normal bowel sounds, non tender, soft, no organomegaly Back: no CVA tenderness Extremities: normal range of motion, normal capillary refill, other (TENDERNESS TO LEFT WRIST--NO SWELLING OR BRUISING. FULL ROM OF LEFT ARM, ELBOW, WRIST, HAND AND SENSORY/VASCULAR INTACT. NO TENDERNESS OR INJURY TO RIGHT ARM/WRIST/HAND. MILD TENDERNESS TO RIGHT KNEE, BUT NO SWELLING, NO BRUISING OR OTHER EXTERNAL EVIDENCE OF TRAUMA. FULL ROM OF RIGHT LEG/KNEE/ANKLE/FOOT AND SENSORY/VASCULAR INTACT. NO TENDERNESS OR EXTERNAL EVIDENCE OF TRAUMA TO LEFT LEG/KNEE/ANKLE/FOOT. PT ABLE TO AMBULATE ON HER OWN WITHOUT DIFFICULTY) Neurologic/Psychiatric: diamond sander II-XII nml as tested, no motor/sensory deficits, alert, normal mood/affect, oriented x 3 Skin: normal color, warm/dry Car Coma Score Best Eye Response: (4) Open Spontaneously Best Verbal Response: (5) Oriented Best Motor Response: (6) Obeys Commands [place] Total: 15 Procedures/Interventions Other Wound Location CHIN Wound Length (cm): 1 Wound's Depth, Shape: linear, sub Q Wound Explored: clean Betadine Prep?: No (BETASEPT AND SALINE) Other Closure Supply: Steri Strip 02/17", Mastisol, Wound Adhesive Progress/Results/Core Measures Results/Orders Lab Results Laboratory Tests Test 11/15/20 21:35 11/15/20 22:00 Range/Units Prothrombin Time 33.1 H 12.2-14.7 SEC INR Comment 3.2 H 0.8-1.4 Activated Partial Thromboplast Time 39 H 24-35 SEC White Blood Count 7.0 4.3-11.0 10^3/uL Red Blood Count 3.74 L 3.80-5.11 10^6/uL Hemoglobin 12.4 11.5-16.0 g/dL Hematocrit 39 35-52 % Mean Corpuscular Volume 105 H 80-99 fL Mean Corpuscular Hemoglobin 33 25-34 pg Mean Corpuscular Hemoglobin Concent 32 32-36 g/dL Red Cell Distribution Width 13.5 10.0-14.5 % Platelet Count 154 130-400 10^3/uL Mean Platelet Volume 9.7 9.0-12.2 fL Immature Granulocyte % (Auto) 0 % Neutrophils (%) (Auto) 65 42-75 % Lymphocytes (%) (Auto) 22 12-44 % Monocytes (%) (Auto) 10 0-12 % Eosinophils (%) (Auto) 2 0-10 % Basophils (%) (Auto) 1 0-10 % Neutrophils # (Auto) 4.6 1.8-7.8 10^3/uL Lymphocytes # (Auto) 1.5 1.0-4.0 10^3/uL Monocytes # (Auto) 0.7 0.0-1.0 10^3/uL Eosinophils # (Auto) 0.1 0.0-0.3 10^3/uL Basophils # (Auto) 0.1 0.0-0.1 10^3/uL Immature Granulocyte # (Auto) 0.0 0.0-0.1 10^3/uL Sodium Level 143 135-145 MMOL/L Potassium Level 4.7 3.6-5.0 MMOL/L Chloride Level 107 98-107 MMOL/L Carbon Dioxide Level 22 21-32 MMOL/L Anion Gap 14 5-14 MMOL/L Blood Urea Nitrogen 23 H 7-18 MG/DL Creatinine 0.94 0.60-1.30 MG/DL Estimat Glomerular Filtration Rate 58 BUN/Creatinine Ratio 24 Glucose Level 88 70-105 MG/DL Calcium Level 10.0 8.5-10.1 MG/DL Corrected Calcium 10.2 H 8.5-10.1 MG/DL Total Bilirubin 0.4 0.1-1.0 MG/DL Aspartate Amino Transf (AST/SGOT) 30 5-34 U/L Alanine Aminotransferase (ALT/SGPT) 18 0-55 U/L Alkaline Phosphatase 97 40-136 U/L Total Protein 6.9 6.4-8.2 GM/DL Albumin 3.8 3.2-4.5 GM/DL My Orders Orders - MARIELA NAVARRETE DO Ed Iv/Invasive Line Start (11/15/20 21:) Monitor-Rhythm Ecg Trace Only (11/15/20 21:) Ct Head/Face/Cervical Wo (11/15/20 21:) Chest 1 View, Ap/Pa Only (11/15/20:) Wrist, Left, 3 Views Or More (11/15/20:) Knee, Right, 3 Views (11/15/20 21:) Pelvis (11/15/20 21:) Cervical Collar (11/15/20 21:) Cbc With Automated Diff (11/15/20:) Comprehensive Metabolic Panel (11/15/20:) Protime With Inr (11/15/20:) Partial Thromboplastin Time (11/15/20:) Vital Signs/I&O Progress Progress Note : Progress Note CERVICAL COLLAR PLACED ON ARRIVAL. Diagnostic Imaging Comments CT HEAD/MAXILLOFACIALS/CERVICAL SPINE--PER RADIOLOGIST REPORT AT 2200 CT HEAD: There is no hemorrhage, hydrocephalus, edema, mass, mass effect or evidence for elevated intracerebral pressures. There is no abnormal extra-axial fluid collection. Basilar cisterns are patent. No calvarial fracture deformity. CT CERVICAL SPINE: Compared 04/21/2016 Body heights are stable and maintained. Slight stable grade 1 degenerative anterolisthesis C5 on C6, unchanged. No facet joint dislocation. Central skull base intact. No cervical fracture or paravertebral hemorrhage. The prevertebral and retropharyngeal spaces are normal. No substantial degree of stenosis. CT FACIAL BONES: Mandible intact. No dislocation of the temporomandibular joints. Zygomatic arch is intact. The nasal bones and bony nasal septum are intact. The anterior and posterior albert of the frontal sinuses are intact. The bony orbits appear intact. The maxillary sinus albert intact. The pterygoid plates intact. The maxilla appears unremarkable. No facial fracture or hemosinus. No orbital emphysema. No proptosis. IMPRESSION: No acute finding at CT head, cervical spine and facial bones. XRAYS--PER RADIOLOGIST REPORTS AT 2215 CXR--FINDINGS: Poststernotomy changes stable. The upper limits heart size stable. No displaced rib fracture deformity, lung contusion, pneumothorax or hemopneumothorax. IMPRESSION: Stable chronic findings. . PELVIS XRAY- FINDINGS: There is right hip replacement. The left hip intact. There are degenerative changes to the symphysis. No pelvic fracture or joint disruption. Air-containing rectum is midline. IMPRESSION: No acute or posttraumatic sequelae identified. RIGHT KNEE XRAYS-- FINDINGS: Three view right knee shows no evidence for joint effusion, fracture, dislocation or acute articular irregularity. IMPRESSION: No acute appearing abnormality. 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 No fracture or dislocation is identified. IMPRESSION: No acute appearing abnormality. Reviewed: Reviewed by Me Departure Impression Primary Impression: Fall from standing Additional Impressions: FACIAL CONTUSIONS Chin laceration CERVICAL SPINE STRAIN Left wrist sprain Contusion of right knee Contusion of left breast, initial encounter Periorbital hematoma of left eye Disposition: HOME, SELF-CARE Condition: Stable Departure-Patient Inst. Decision time for Depature: 22:18 Referrals: PRIYA ALVES DO (PCP/Family) Primary Care Physician Patient Instructions: Contusion (DC), Eye Contusion (DC), Laceration Repair With Glue ED, Neck Sprain (DC), Preventing Falls in the Older Adult, Wrist Sprain ED Add. Discharge Instructions: ICE TO SORE AREAS AT 20 MINUTE INTERVALS TYLENOL NEEDED FOR PAIN CONTINUE YOUR REGULAR MEDICATIONS PRESCRIBED LEAVE STERI STRIPS AND SKIN GLUE ALONE--WILL FALL OFF ON THEIR OWN IN A FEW DAYS. NO LOTIONS, CREAMS, OR OINTMENTS AND DO NOT GET WET ACTIVITIES TOLERATED FOLLOW UP WITH YOUR DR IN 1 WEEK IF NO BETTER, RETURN TO ER IF WORSE MARIELA NAVARRETE DO Nov 15, 2020 21:11
[2020-11-15 21:50] LABS: INR 3.2 (0.8-1.4); PROTHROMBIN TIME PATIENT 33.1 SEC (12.2-14.7)
--- NOTE | 2020-11-15 21:56 | Diagnostic Imaging Report ---
PROCEDURE: CT head, face, and cervical spine without contrast. TECHNIQUE: Multiple contiguous axial images were obtained through the head, neck, and facial bones without the use of intravenous contrast. Sagittal and coronal reformations through the cervical spine and facial bones were also performed. Auto Exposure Controls were utilized during the CT exam to meet ALARA standards for radiation dose reduction. INDICATION: Injury with pain. CT HEAD: There is no hemorrhage, hydrocephalus, edema, mass, mass effect or evidence for elevated intracerebral pressures. There is no abnormal extra-axial fluid collection. Basilar cisterns are patent. No calvarial fracture deformity. CT CERVICAL SPINE: Compared 04/21/2016 Body heights are stable and maintained. Slight stable grade 1 degenerative anterolisthesis C5 on C6, unchanged. No facet joint dislocation. Central skull base intact. No cervical fracture or paravertebral hemorrhage. The prevertebral and retropharyngeal spaces are normal. No substantial degree of stenosis. CT FACIAL BONES: Mandible intact. No dislocation of the temporomandibular joints. Zygomatic arch is intact. The nasal bones and bony nasal septum are intact. The anterior and posterior albert of the frontal sinuses are intact. The bony orbits appear intact. The maxillary sinus albert intact. The pterygoid plates intact. The maxilla appears unremarkable. No facial fracture or hemosinus. No orbital emphysema. No proptosis. IMPRESSION: No acute finding at CT head, cervical spine and facial bones. Dictated by: Dictated on workstation # [id number]
[2020-11-15 22:06] LABS: BASOPHILS # (AUTO) 0.1 10^3/uL (0.0-0.1); BASOPHILS % (AUTO) 1 % (0-10); EOSINOPHILS # (AUTO) 0.1 10^3/uL (0.0-0.3); EOSINOPHILS % (AUTO) 2 % (0-10); HEMATOCRIT 39 % (35-52); HEMOGLOBIN 12.4 g/dL (11.5-16.0); LYMPHOCYTES # (AUTO) 1.5 10^3/uL (1.0-4.0); LYMPHOCYTES % (AUTO) 22 % (12-44); MEAN CORPUSCULAR HEMOGLOBIN 33 pg (25-34); MEAN CORPUSCULAR HGB CONC 32 g/dL (32-36); MEAN CORPUSCULAR VOLUME 105 fL (80-99); MEAN PLATELET VOLUME 9.7 fL (9.0-12.2); MONOCYTES # (AUTO) 0.7 10^3/uL (0.0-1.0); MONOCYTES % (AUTO) 10 % (0-12); NEUTROPHILS # (AUTO) 4.6 10^3/uL (1.8-7.8); NEUTROPHILS % (AUTO) 65 % (42-75); PLATELET COUNT 154 10^3/uL (130-400)
--- NOTE | 2020-11-15 22:11 | Diagnostic Imaging Report ---
INDICATION: Fall. COMPARISON: 11/04/2017. FINDINGS: Poststernotomy changes stable. The upper limits heart size stable. No displaced rib fracture deformity, lung contusion, pneumothorax or hemopneumothorax. IMPRESSION: Stable chronic findings. Dictated by: Dictated on workstation # [id number]
--- NOTE | 2020-11-15 22:11 | Diagnostic Imaging Report ---
INDICATION: Fall. FINDINGS: There is right hip replacement. The left hip intact. There are degenerative changes to the symphysis. No pelvic fracture or joint disruption. Air-containing rectum is midline. IMPRESSION: No acute or posttraumatic sequelae identified. Dictated by: Dictated on workstation # [id number]
--- NOTE | 2020-11-15 22:13 | Diagnostic Imaging Report ---
INDICATION: Fall, pain. FINDINGS: Three view right knee shows no evidence for joint effusion, fracture, dislocation or acute articular irregularity. IMPRESSION: No acute appearing abnormality. Dictated by: Dictated on workstation # [id number]
--- NOTE | 2020-11-15 22:14 | Diagnostic Imaging Report ---
INDICATION: Fall, pain. 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 No fracture or dislocation is identified. IMPRESSION: No acute appearing abnormality. Dictated by: Dictated on workstation # [id number]
[2020-11-15 22:16] LABS: ALBUMIN 3.8 GM/DL (3.2-4.5)
[2020-11-15 22:17] LABS: POTASSIUM 4.7 MMOL/L (3.6-5.0)
[2020-11-15 22:19] LABS: TOTAL PROTEIN 6.9 GM/DL (6.4-8.2)
[2020-11-15 22:21] LABS: BILIRUBIN,TOTAL 0.4 MG/DL (0.1-1.0)
[2020-11-15 22:23] LABS: CREATININE SERUM 0.94 MG/DL (0.60-1.30)
[2020-11-15 22:39] VITALS: BP 120/76
== END 2020-11-15 22:36 | disposition home or self-care (01) ==
LOC: EDUNIT# 20:49 → ER 20:51
DX: S01.81XA Laceration without foreign body of other part of head, initial encounter (principal); S16.1XXA Strain of muscle, fascia and tendon at neck level, initial encounter; S63.502A Unspecified sprain of left wrist, initial encounter; S80.01XA Contusion of right knee, initial encounter; S20.02XA Contusion of left breast, initial encounter; W17.89XA Other fall from one level to another, initial encounter
CPT/HCPCS: 36415; 70450; 70486; 71045; 72125; 72170; 73110; 73562; 80053; 85025; 85610; 85730; 93041

== ENCOUNTER 2020-12-11 13:36 | Outpatient (RCR) | payer MEDICARE | END 2020-12-11 14:30 | disposition home or self-care (01) | PROVIDERS: ATTEND Family Medicine | DX: M25.551 Pain in right hip (principal); M25.561 Pain in right knee ==

== ENCOUNTER 2021-07-09 12:54 | Emergency (ER) | payer MEDICARE ==
[~2021-07-09 12:54] MED LIST changes: +POTA-179 PO; -POTA20TA15 PO
--- NOTE | 2021-07-09 13:11 | ED Fall/Injury ---
General Chief Complaint: Trauma-Non Activation Stated Complaint: FALL Source: patient Exam Limitations: no limitations (MÓNICA PERAZA) History of Present Illness Date Seen by Provider: July 09, 2021 Time Seen by Provider: 13:08 Initial Comments Patient is a 76-year-old female who presents the ED with right-sided facial pain. 30 minutes ago patient fell at home. She states she tripped over her 's oxygen cord landing on her right side of her face on the ground. No loss of consciousness. Currently on warfarin secondary to mechanical heart valve. She has abrasions to the right side of face. She did have a headache and neck pain was placed in c-collar by EMS. Did not ambulate afterwards. She states headache dizziness has improved. No complaints right-sided facial pain secondary to abrasion. Up-to-date on her tetanus within the past 5 years. She is also reports of left llamas pain during transfer here in the ED without bruising or swelling. History of right hip arthroplasty. Denies falling hitting her head, hip pain, back pain, chest pain, shortness of breath, vomiting, visual changes, worsening headache. Refused anything for pain. (MÓNICA PERAZA) Allergies and Home Medications Allergies Coded Allergies: Sulfa (Sulfonamide Antibiotics) (Verified Allergy, Unknown, 01/08/08) meperidine (Verified Allergy, Unknown, 01/08/08) Patient Home Medication List Home Medication List Reviewed: Yes (MÓNICA PERAZA) Calcium Carbonate (Calcium Carbonate) 600 Mg Tablet, 600 MG PO DAILY, (Reported) Entered as Reported by: AKIRA RUTHERFORD on 11/11/17 1048 Cholecalciferol (Vitamin D3) (Vitamin D3) 2,000 Unit Capsule, 2,000 UNIT PO DAILY, (Reported) Entered as Reported by: AKIRA RUTHERFORD on 11/11/17 1048 Docusate Sodium (Docusate Sodium) 100 Mg Capsule, 100 MG PO BID PRN for CONSTIPATION-1ST LINE, (Reported) Entered as Reported by: AKIRA RUTHERFORD on 11/11/17 1048 Escitalopram Oxalate (Escitalopram Oxalate) 10 Mg Tablet, 10 MG PO DAILY, (Reported) Entered as Reported by: AKIRA RUTHERFORD on 11/11/17 1048 Famotidine (Famotidine) 40 Mg Tablet, 40 MG PO HS, (Reported) Entered as Reported by: AKIRA RUTHERFORD on 11/11/17 1048 Furosemide (Furosemide) 20 Mg Tablet, 20 MG PO DAILY Prescribed by: PRIYA ALVES on 11/21/17 1309 Levothyroxine Sodium (Synthroid) 75 Mcg Tablet, 75 MCG PO DAILY, (Reported) Entered as Reported by: AKIRA RUTHERFORD on 11/11/17 1048 Magnesium Oxide (Magnesium) 400 Mg Tablet, 400 MG PO DAILY, (Reported) Entered as Reported by: AKIRA RUTHERFORD on 11/11/17 1048 Metoprolol Succinate (Metoprolol Succinate) 100 Mg Tab.er.24h, 100 MG PO DAILY, (Reported) Entered as Reported by: AKIRA RUTHERFORD on 11/11/17 1048 Potassium Chloride (Potassium Chloride) 20 Meq Tab.er.prt, 20 MEQ PO BID Prescribed by: PRIYA ALVES on 11/21/17 1309 Pravastatin Sodium (Pravastatin Sodium) 80 Mg Tablet, 80 MG PO DAILY, (Reported) Entered as Reported by: AKIRA RUTHERFORD on 11/11/17 1048 Temazepam (Temazepam) 7.5 Mg Capsule, 7.5 MG PO HS PRN for SLEEP Prescribed by: PRIYA ALVES on 11/21/17 1309 Warfarin Sodium (Warfarin Sodium) 5 Mg Tablet, PO UD, (Reported) Entered as Reported by: AKIRA RUTHERFORD on 11/11/17 1048 Review of Systems Review of Systems Constitutional: No chills, No diaphoresis Eyes: Denies Blurred Vision, Denies Decreased Acuity Ears, Nose, Mouth, Throat: denies ear pain, denies ear discharge, denies nose discharge, denies mouth pain, denies throat pain, denies throat swelling Respiratory: No cough Cardiovascular: No chest pain Gastrointestinal: No abdominal pain, No diarrhea, No nausea, No vomiting Genitourinary: No decreased output, No discharge Musculoskeletal: No back pain, No muscle pain, No muscle stiffness Skin: change in color (MÓNICA PERAZA) All Other Systems Reviewed Negative Unless Noted: Yes (MÓNICA PERAZA) Past Mojkvfr-Yfbcoe-Jvuvtk Hx Immunizations Up To Date Second COVID19 Vaccination José Miguel: MODERNA (MÓNICA PERAZA) Seasonal Allergies Seasonal Allergies: No (MÓNICA PERAZA) Past Medical History Surgery/Hospitalization HX: MITRAL VALVE REPLACEMENT CARDIAC CATHS CABG RIGHT MASTECTOMY FOR CANCER HYSTERECTOMY COLONOSCOPIES RIGHT HIP FRACTURE AND REPLACEMENT 10/2017 Surgeries: Yes (RIGHT MASTECTOMY; CABG; MITRAL VALVE REPLACEMENT; COLONOSCOPIES) Breast, Cardiac, CABG, Hysterectomy, Joint Replacement, Orthopedic, Valve Replacement Respiratory: No Cardiac: Yes (MITRAL VALVE REPLACEMENT) Atrial Fibrillation, Coronary Artery Disease, Heart Murmur, Hypertension, Valvular Heart Disease Neurological: No Reproductive Disorders: Yes Female 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, Menopausal Sexually Transmitted Disease: No HIV/AIDS: No Genitourinary: No Gastrointestinal: Yes Gastroesophageal Reflux Musculoskeletal: Yes (RIGHT HIP FRACTURE AND REPLACEMENT) Endocrine: Yes Hypothyroidsim HEENT: Yes Macular Degeneration Cancer: Yes Breast Did You Recieve Any Treatments: Yes What Type of Treatment Did You: Surgical Intervention Psychosocial: Yes Anxiety Integumentary: No Blood Disorders: Yes (IPTC) Adverse Reaction/Blood Tranf: No (MÓNICA PERAZA) Family Medical History Cardiovascular disease 19 FATHER Headache disorder 19 MOTHER Hypercholesterolemia 19 FATHER Myocardial infarction 19 MOTHER Osteoporosis 19 MOTHER Thyroid disease 19 MOTHER Visual disorder 19 FATHER 19 MOTHER No Family History of: Colon cancer Hypertension Physical Exam Vital Signs Vital Signs - First Documented 07/09/21 12:56 Temp 36.4 Pulse 70 Resp 18 B/P (MAP) 142/73 (96) (LUIS FERNANDO BOOKER MD) Vital Signs Capillary Refill : (MÓNICA PERAZA) Height, Weight, BMI Height: 5'7.00" Weight: 129lbs. 4.0oz. 58.334390lq; 18.00 BMI Method:Stated General Appearance: WD/WN, no apparent distress HEENT: PERRL/EOMI, TMs normal, pharynx normal Neck: non-tender, full range of motion, supple Cardiovascular: regular rate, rhythm, no edema, no gallop, no JVD Respiratory: chest non-tender, normal breath sounds, no respiratory distress Gastrointestinal: normal bowel sounds, non tender, soft, no organomegaly Pelvic: normal external exam Back: normal inspection, no CVA tenderness, no vertebral tenderness Extremities: other (Left llamas tenderness without swelling erythema or ecchymosis. No ankle or knee tenderness. 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 Mild right maxilla tenderness.) (MÓNICA PERAZA) [place] Coma Score Best Eye Response: (4) Open Spontaneously Best Verbal Response: (5) Oriented Best Motor Response: (6) Obeys Commands [place] Total: 15 (MÓNICA PERAZA) Progress/Results/Core Measures Results/Orders Lab Results Laboratory Tests Test 07/09/21 13:42 Range/Units Prothrombin Time 19.5 H 12.2-14.7 SEC INR Comment 1.6 H 0.8-1.4 Activated Partial Thromboplast Time 31 24-35 SEC (LUIS FERNANDO BOOKER MD) Vital Signs/I&O 07/09/21 07/09/21 12:56 14:30 Temp 36.4 36.4 Pulse 70 71 Resp 18 16 B/P (MAP) 142/73 (96) 140/72 (LUIS FERNANDO BOOKER MD) Departure Communication (PCP) CT scan of the face, head and cervical neck was negative for acute fracture. Abrasion to the right side of her cheek. Neosporin was applied here. Topical antibiotic ointment twice daily until healing. Ice help with swelling. X-ray left llamas negative for fracture. Able to bear weight here. She has no hip pain, mid upper back pain, low back pain chest pain or shortness of breath. Subtherapeutic INR 1.6. Discussed potential 1 dose increase of her warfarin. Follow-up with your PCP in the next few days for reevaluation. Discussed potential concussion. If any worsening symptoms such as severe head pain, vomiting, disoriented to return back to ED. patient refused any pain medication. C-collar removed and cleared at 210. (MÓNICA PERAZA) Impression Primary Impression: Facial abrasion Additional Impression: Subtherapeutic international normalized ratio (INR) Disposition: 01 HOME, SELF-CARE Condition: Stable Departure-Patient Inst. Decision time for Depature: 14:19 (MÓNICA PERAZA) Referrals: PRIYA ALVES DO (PCP/Family) Primary Care Physician Patient Instructions: Skin Abrasions Add. Discharge Instructions: Recommend Neosporin topical twice daily to the abrasion. Ice to help with swelling. If any worsening symptoms such as severe headache, vomiting to return back to ED. All discharge instructions reviewed with patient and/or family. Voiced understanding. ATTENDING PHYSICIAN NOTE: I was physically present as attending physician in the emergency department during the care of this patient, but I was not directly involved in the decision making or delivery of care for this patient. (LUIS FERNANDO BOOKER MD) MÓNICA PERAZA July 09, 2021 13:11 LUIS FERNANDO BOOKER MD July 09, 2021 21:59
--- NOTE | 2021-07-09 13:49 | Diagnostic Imaging Report ---
EXAMINATION: Left tibial and fibular radiographs, 2 views, 4 images. COMPARISON: None. HISTORY: 76-year-old female, left tibia and fibula pain. FINDINGS: There is material overlying the patient which does limit the exam. There is no identified acute fracture of the tibia or fibula. There is no identified radiopaque foreign body. There is no large tibiotalar joint effusion. IMPRESSION: 1. No identified acute bony abnormality of the left tibia or fibula. Dictated by: Dictated on workstation # [id number]
--- NOTE | 2021-07-09 13:52 | Diagnostic Imaging Report ---
PROCEDURE: CT head, face, and cervical spine without contrast. TECHNIQUE: Multiple contiguous axial images were obtained through the head, neck, and facial bones without the use of intravenous contrast. Sagittal and coronal reformations through the cervical spine and facial bones were also performed. Auto Exposure Controls were utilized during the CT exam to meet ALARA standards for radiation dose reduction. INDICATION: Fall, injury to the head, face and neck COMPARISON: 11/15/2020 FINDINGS: CT HEAD: The ventricles and cortical sulci are mildly prominent from generalized parenchymal volume loss. There is no midline shift or mass effect. No acute intracranial hemorrhage is seen. There is no CT evidence of acute territorial ischemia. The calvarium appears intact. CT FACE: The pterygoid plates are intact. The zygomatic arches are intact. The mandible appears intact and normal in alignment. The maxillary sinuses appear intact. No fluid levels are seen. The orbits are intact. There is no post septal edema. The globes are intact. There are bilateral lens implants. Remaining paranasal sinuses appear clear. CT CERVICAL SPINE: There is grade 1 anterolisthesis at C5-C6. There are moderate degenerative changes at C3-C4, C4-C5 and C5-C6 with mild degenerative change elsewhere in the cervical spine. There is mild rotation of the head relative to the cervical spine. No acute fracture is seen. No bony fragments or hyperdense fluid collections are seen in the spinal canal. There is scarring in the lung apices. Surrounding soft tissues demonstrate no acute abnormality. IMPRESSION: 1. No acute intracranial hemorrhage or calvarium fracture. 2. No facial fracture. 3. Degenerative changes in the cervical spine with no acute fracture seen. Dictated by: Dictated on workstation # [id number]
[2021-07-09 14:10] LABS: INR 1.6 (0.8-1.4); PROTHROMBIN TIME PATIENT 19.5 SEC (12.2-14.7)
[2021-07-09 14:30] VITALS: BP 140/72
== END 2021-07-09 14:30 | disposition home or self-care (01) ==
LOC: EDUNIT# 12:54 → ER 12:55
DX: S00.81XA Abrasion of other part of head, initial encounter (principal); R79.1 Abnormal coagulation profile; Z95.2 Presence of prosthetic heart valve; Z79.01 Long term (current) use of anticoagulants; W18.09XA Striking against other object with subsequent fall, initial encounter
CPT/HCPCS: 36415; 70450; 70486; 72125; 73590; 85610; 85730